=== PATIENT | male | born 1985 | race Caucasian/White ===

== ENCOUNTER 2017-02-25 10:23 | Inpatient (IN) ==
[2017-02-25] MEDS ORDERED: GI Cocktail 40 ML EACH PO ONE (10:34)
[2017-02-25] MEDS ORDERED: Ondansetron 4 MG/2 ML VIAL IVP ONE (10:34)
[2017-02-25] MEDS ORDERED: 0.9 % Sodium Chloride 1,000 ML IVC ONE ×2 (10:34→16:34)
--- NOTE | 2017-02-25 10:37 | Emergency Department Note ---
START Narrative - START START: 31-year-old male presents to the emergency department via EMS with complaint of abdominal pain, nausea, vomiting, dark stools and heartburn. I briefly saw this patient as we are currently approaching shift change. Generalized abdominal labs were ordered, antibiotics and a trial of a GI cocktail. Patient in no acute distress. Borderline febrile at 99.9. Patient denies any chest pain, shortness of breath, dizziness or lightheadedness.
[2017-02-25 10:48] LABS: Bilirubin,Urine Negative (Negative); Blood,Urine Moderate (Negative); Clarity,Urine Clear (Clear); Color,Urine Yellow (Yellow); Glucose,Urine (UA) >=1000 mg/dL (Normal); Ketones,Urine 40 mg/dL (Negative); Leukocyte Esterase,Urine Negative (Negative); Nitrite,Urine Negative (Negative); PH,Urine 6.5 pH Units (5.0-8.0); Protein,Urine >=300 mg/dL (Neg-Trace); Specific Gravity,Urine > 1.030 (1.010-1.025); Urobilinogen,Urine Normal (Normal)
[2017-02-25 10:50] LABS: Bacteria,Urine None Seen per hpf (None-Few); Hyaline Casts,Urine None Seen per lpf (None-Few); RBC,Urine 15-30 per hpf (0-3); Squamous Epithelial Cell,Urine Moderate per lpf (None-Few); WBC,Urine 0-3 per hpf (0-3)
[2017-02-25 10:54] LABS: Amphetamine Screen,Urine Negative ng/mL (Cutoff=1000); Barbiturate Screen,Urine Negative ng/mL (Cutoff=200); Benzodiazepines Screen,Urine Negative ng/mL (Cutoff=200); Cannabinoid Screen,Urine Negative ng/mL (Cutoff = 50); Cocaine Screen,Urine Negative ng/mL (Cutoff= 300); Opiate Screen,Urine Negative ng/mL (Cutoff=300); Phencyclidine Screen,Urine Negative ng/mL (Cutoff=25)
[2017-02-25 10:54] LABS: Basophils % 0.3 %; Eosinophils # 0.2 K/mcL (0.0-0.6); Hematocrit 44.5 % (37.5-50.1); Immature Granulocytes % 0.7 % (0-4); Lymphocytes # 1.8 K/mcL (0.6-4.6); Lymphocytes % 11.8 %; Mean Corpuscular HGB Conc 33.7 g/dL (31.6-35.5); Mean Corpuscular Hemoglobin 26.2 pg (28.0-33.3); Mean Corpuscular Volume 77.7 fL (83.0-100.0); Monocytes # 0.9 K/mcL (0.0-1.3); Monocytes % 5.7 %; Neutrophils # 12.1 K/mcL (1.6-8.9); Platelet Count 214 K/mcL (140-400); Red Blood Count 5.73 M/mcL (4.19-5.50); Red Cell Distribution Width 14.6 % (11.5-14.5); Segmented Neutrophils % 80.5 %
[2017-02-25 11:00] LABS: INR 1.2; Prothrombin Time 12.7 Seconds (9.4-12.1)
[2017-02-25 11:02] LABS: Activated Partial Thrombo Time 31.3 Seconds (26.0-36.0)
--- NOTE | 2017-02-25 11:44 | Emergency Department Note ---
Disposition Clinical Impression: UPJ (ureteropelvic junction) obstruction Pancreatitis Qualifiers: Chronicity: acute Pancreatitis type: unspecified pancreatitis type Acute pancreatitis complication: unspecified Qualified Code(s): K85.90 - Acute pancreatitis without necrosis or infection, unspecified Disposition: Admitted As Inpatient Condition: Serious Time of Disposition: 15:46 Abdominal Pain HPI - General Chief Complaint: ED Abdominal Pain Stated Complaint: ABD pain Time Seen by Provider: 02/25/17 10:34 Source: patient, EMS Mode of arrival: ambulatory Limitations: no limitations Nursing Notes Reviewed: Yes Vital Signs Reviewed: Yes - History of Present Illness HPI Narrative: 31-year-old male with 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 The patient states he had some associated nausea and vomiting up to 4 episodes. The patient states he has had 2 hard bowel movements every day which is unusual for him as he normally has 3-4 bowel movements. The patient states it is dark in color, nonbloody. The patient states that over the past 24 hours his pain is beginning to radiate to the left flank. The patient states he is worried about his kidney at this time. The patient denies any fevers but does admit to chills. The patient definitely has a decreased by mouth intake per his significant other in the room. The patient denies any dysuria. The patient does have a history of nephrolithiasis 3 or 4. Patient denies any other complaints at this time do include dyspnea, chest pain, unilateral weakness. Pt Subjective Complaint: abdominal pain Pain Severity: moderate Pain Scale: 8 Quality: cramping Radiation: L flank Improves with: nothing Worsens with: nothing Context: history of similar episodes Associated symptoms: Reports: nausea, vomiting, constipation. Denies: diarrhea , dysuria, hematochezia, melena, hematuria Treatments prior to arrival: none - Related Data Home Medications Medication Instructions Recorded Confirmed BuPROPion XL (24 HR) [Wellbutrin 150 mg PO BID 11/24/15 02/25/17 Xl] Enalapril Maleate [Vasotec] 20 mg PO DAILY 11/24/15 02/25/17 metFORMIN [Glucophage] 1,000 mg PO BIDWM 11/24/15 02/25/17 Buspirone HCl [Buspar] 10 mg PO TID 02/25/17 02/25/17 Dicyclomine [Bentyl] 10 mg PO QID 02/25/17 02/25/17 Escitalopram [Lexapro] 20 mg PO DAILY 02/25/17 02/25/17 Gemfibrozil [Lopid] 600 mg PO BIDWM 02/25/17 02/25/17 Glimepiride [Amaryl] 2 mg PO DAILY 02/25/17 02/25/17 Allergies Allergy/AdvReac Type Severity Reaction Status Date / Time prednisolone Allergy Rash, Verified 07/07/16 12:00 Shortness of Breath All systems ED: reviewed and negative except as stated. Constitutional: Denies: fever, chills, weakness, weight change Cardiovascular: Denies: chest pain, palpitations, dyspnea on exertion, edema, syncope Respiratory: Denies: cough, dyspnea, wheezes, hemoptysis, stridor Gastrointestinal: Reports: abdominal pain, nausea, vomiting, constipation. Denies: diarrhea, hematemesis, melena, hematochezia Genitourinary: Denies: urgency, dysuria, frequency, hematuria Musculoskeletal: Denies: back pain, neck pain, arthralgia, myalgia Integumentary: Denies: rash, abrasion, lesions Neurological: Denies: headache, weakness, numbness, paresthesias, confusion, abnormal gait, vertigo Abdominal Pain PMH - Past Medical History Medical history: Reports: diabetes, hyperlipidemia, hypertension, other (Single functional kidney on the left) Male Surgical History: Reports: Tonsillectomy, other Psychiatric history: Reports: anxiety - Social History Smoking status: Never smoker Alcohol use: Reports: none Drug use: Reports: none Physical Exam - General Limitations: no limitations General appearance: alert - Head Head exam: atraumatic, normocephalic, normal inspection - Chest Chest inspection: Present: normal inspection, symmetric chest wall rise - Respiratory Respiratory exam: Present: normal lung sounds bilaterally - Cardiovascular Cardiovascular exam: Present: regular rate, normal rhythm, normal heart sounds - Abdominal Exam Abdominal exam: Present: soft, tenderness, normal bowel sounds. Absent: distention, guarding, rebound, rigidity, Rovsing's sign, tenderness at McBurney' s Point, pulsatile mass Abdominal tenderness: Present: suprapubic, moderate - Extremities Exam Extremities exam: Present: normal inspection - Back Exam Back exam: Present: normal inspection, full ROM. Absent: tenderness - Neurological Exam Neurological exam: Present: alert, oriented X3 Course - Consultations Consultation #1: Spoke with Urology. Will see the patient. Vital Signs Temperature 99.9 F H 02/25/17 10:25 Pulse Rate 124 02/25/17 10:25 Respiratory Rate 18 02/25/17 10:25 Blood Pressure 143/84 02/25/17 10:25 O2 Sat by Pulse Oximetry 100 02/25/17 10:25 Temperature 98.9 F 02/25/17 16:40 Pulse Rate 124 02/25/17 16:27 Respiratory Rate 16 02/25/17 16:36 Blood Pressure 124/63 02/25/17 16:36 O2 Sat by Pulse Oximetry 93 02/25/17 16:27 Oxygen Delivery Oxygen Delivery Room Air Abdominal Pain - Lab Data Result diagrams: 02/25/17 10:45 02/25/17 11:58 Lab Results 02/25/17 02/25/17 02/25/17 Range/Units 10:39 10:39 10:45 WBC 15.0 H (4.3-11.1) K/mcL RBC 5.73 H (4.19-5.50) M/mcL Hgb 15.0 (12.9-16.9) g/dL Hct 44.5 (37.5-50.1) % MCV 77.7 L (83.0-100.0) fL MCH 26.2 L (28.0-33.3) pg MCHC 33.7 (31.6-35.5) g/dL RDW 14.6 H (11.5-14.5) % Plt Count 214 (140-400) K/mcL MPV 11.0 (9.4-12.4) fL Immature Gran % 0.7 (0-4) % Seg Neutrophils % 80.5 % Lymphocytes % 11.8 % Monocytes % 5.7 % Eosinophils % 1.0 % Basophils % 0.3 % Neutrophils # 12.1 H (1.6-8.9) K/mcL Lymphocytes # 1.8 (0.6-4.6) K/mcL Monocytes # 0.9 (0.0-1.3) K/mcL Eosinophils # 0.2 (0.0-0.6) K/mcL Basophils # 0.0 (0.0-0.2) K/mcL PT (9.4-12.1) Seconds INR APTT (26.0-36.0) Seconds Sodium (136-145) mEq/L Potassium (3.5-4.5) mEq/L Chloride (98-109) mEq/L Carbon Dioxide (19-29) mEq/L BUN (8-26) mg/dL Creatinine (0.72-1.25) mg/dL Est GFR ( Amer) (> 60) Est GFR (Non-Af Amer) (> 60) BUN/Creatinine Ratio (6-26) Glucose (70-99) mg/dL Calculated Osmolality (280-300) Lactic Acid (0.5-2.2) mmol/L Calcium (8.6-10.8) mg/dL Total Bilirubin (0.2-1.2) mg/dL Direct Bilirubin (0.0-0.5) mg/dL Indirect Bilirubin (0.0-1.2) mg/dL AST (5-34) Units/L ALT (0-55) Units/L Alkaline Phosphatase (38-126) Units/L Serum Total Protein (6.0-8.3) g/dL Albumin (3.5-5.0) g/dL Globulin (2.4-3.5) g/dL Albumin/Globulin Ratio (1.1-2.2) Amylase (25-125) Units/L Lipase (8-78) Units/L Urine Color Yellow (Yellow) Urine Clarity Clear (Clear) Urine pH 6.5 (5.0-8.0) pH Units Ur Specific [place] > 1.030 H (1.010-1.025) Urine Protein >=300 H (Neg-Trace) mg/dL Urine Glucose (UA) >=1000 H (Normal) mg/dL Urine Ketones 40 H (Negative) mg/dL Urine Blood Moderate H (Negative) Urine Nitrite Negative (Negative) Urine Bilirubin Negative (Negative) Urine Urobilinogen Normal (Normal) mg/dL Ur Leukocyte Esterase Negative (Negative) Urine Microscopic RBC 15-30 H (0-3) per hpf Urine Microscopic WBC 0-3 (0-3) per hpf Ur Squamous Epith Cells Moderate H (None-Few) per lpf Urine Bacteria None Seen (None-Few) per hpf Hyaline Casts None Seen (None-Few) per lpf Ur Culture Indicated? NO (NO) Urine Opiates Screen Negative (Nhmwjh=106) ng/mL Ur Barbiturates Screen Negative (Donmpl=593) ng/mL Ur Phencyclidine Scrn Negative (Cutoff=25) ng/mL Ur Amphetamines Screen Negative (Edlhvc=2710) ng/mL U Benzodiazepines Scrn Negative (Fgpwhk=371) ng/mL Urine Cocaine Screen Negative (Cutoff= 300) ng/mL U Marijuana (THC) Screen Negative (Cutoff = 50) ng/mL Specimen Rejected 02/25/17 02/25/17 02/25/17 Range/Units 10:45 10:45 11:16 WBC (4.3-11.1) K/mcL RBC (4.19-5.50) M/mcL Hgb (12.9-16.9) g/dL Hct (37.5-50.1) % MCV (83.0-100.0) fL MCH (28.0-33.3) pg MCHC (31.6-35.5) g/dL RDW (11.5-14.5) % Plt Count (140-400) K/mcL MPV (9.4-12.4) fL Immature Gran % (0-4) % Seg Neutrophils % % Lymphocytes % % Monocytes % % Eosinophils % % Basophils % % Neutrophils # (1.6-8.9) K/mcL Lymphocytes # (0.6-4.6) K/mcL Monocytes # (0.0-1.3) K/mcL Eosinophils # (0.0-0.6) K/mcL Basophils # (0.0-0.2) K/mcL PT 12.7 H (9.4-12.1) Seconds INR 1.2 APTT 31.3 (26.0-36.0) Seconds Sodium (136-145) mEq/L Potassium (3.5-4.5) mEq/L Chloride (98-109) mEq/L Carbon Dioxide (19-29) mEq/L BUN (8-26) mg/dL Creatinine (0.72-1.25) mg/dL Est GFR ( Amer) (> 60) Est GFR (Non-Af Amer) (> 60) BUN/Creatinine Ratio (6-26) Glucose (70-99) mg/dL Calculated Osmolality (280-300) Lactic Acid 1.4 (0.5-2.2) mmol/L Calcium (8.6-10.8) mg/dL Total Bilirubin (0.2-1.2) mg/dL Direct Bilirubin (0.0-0.5) mg/dL Indirect Bilirubin (0.0-1.2) mg/dL AST (5-34) Units/L ALT (0-55) Units/L Alkaline Phosphatase (38-126) Units/L Serum Total Protein (6.0-8.3) g/dL Albumin (3.5-5.0) g/dL Globulin (2.4-3.5) g/dL Albumin/Globulin Ratio (1.1-2.2) Amylase (25-125) Units/L Lipase (8-78) Units/L Urine Color (Yellow) Urine Clarity (Clear) Urine pH (5.0-8.0) pH Units Ur Specific [place] (1.010-1.025) Urine Protein (Neg-Trace) mg/dL Urine Glucose (UA) (Normal) mg/dL Urine Ketones (Negative) mg/dL Urine Blood (Negative) Urine Nitrite (Negative) Urine Bilirubin (Negative) Urine Urobilinogen (Normal) mg/dL Ur Leukocyte Esterase (Negative) Urine Microscopic RBC (0-3) per hpf Urine Microscopic WBC (0-3) per hpf Ur Squamous Epith Cells (None-Few) per lpf Urine Bacteria (None-Few) per hpf Hyaline Casts (None-Few) per lpf Ur Culture Indicated? (NO) Urine Opiates Screen (Kwncgi=510) ng/mL Ur Barbiturates Screen (Qfmmah=828) ng/mL Ur Phencyclidine Scrn (Cutoff=25) ng/mL Ur Amphetamines Screen (Uhlxjz=4338) ng/mL U Benzodiazepines Scrn (Uzyovm=783) ng/mL Urine Cocaine Screen (Cutoff= 300) ng/mL U Marijuana (THC) Screen (Cutoff = 50) ng/mL Specimen Rejected Hemolyzed 02/25/17 02/25/17 Range/Units 11:58 12:37 WBC (4.3-11.1) K/mcL RBC (4.19-5.50) M/mcL Hgb (12.9-16.9) g/dL Hct (37.5-50.1) % MCV (83.0-100.0) fL MCH (28.0-33.3) pg MCHC (31.6-35.5) g/dL RDW (11.5-14.5) % Plt Count (140-400) K/mcL MPV (9.4-12.4) fL Immature Gran % (0-4) % Seg Neutrophils % % Lymphocytes % % Monocytes % % Eosinophils % % Basophils % % Neutrophils # (1.6-8.9) K/mcL Lymphocytes # (0.6-4.6) K/mcL Monocytes # (0.0-1.3) K/mcL Eosinophils # (0.0-0.6) K/mcL Basophils # (0.0-0.2) K/mcL PT (9.4-12.1) Seconds INR APTT (26.0-36.0) Seconds Sodium 129 L (136-145) mEq/L Potassium 4.8 H (3.5-4.5) mEq/L Chloride 97 L (98-109) mEq/L Carbon Dioxide 23 (19-29) mEq/L BUN 7 L (8-26) mg/dL Creatinine 1.07 (0.72-1.25) mg/dL Est GFR ( Amer) > 60 (> 60) Est GFR (Non-Af Amer) > 60 (> 60) BUN/Creatinine Ratio 7 (6-26) Glucose 376 H (70-99) mg/dL Calculated Osmolality 281 (280-300) Lactic Acid (0.5-2.2) mmol/L Calcium 9.0 (8.6-10.8) mg/dL Total Bilirubin 0.7 (0.2-1.2) mg/dL Direct Bilirubin 0.2 (0.0-0.5) mg/dL Indirect Bilirubin 0.5 (0.0-1.2) mg/dL AST 31 (5-34) Units/L ALT 15 (0-55) Units/L Alkaline Phosphatase 61 (38-126) Units/L Serum Total Protein 8.5 H (6.0-8.3) g/dL Albumin 2.9 L (3.5-5.0) g/dL Globulin 5.6 H (2.4-3.5) g/dL Albumin/Globulin Ratio 0.5 L (1.1-2.2) Amylase 77 (25-125) Units/L Lipase 193 H (8-78) Units/L Urine Color (Yellow) Urine Clarity (Clear) Urine pH (5.0-8.0) pH Units Ur Specific [place] (1.010-1.025) Urine Protein (Neg-Trace) mg/dL Urine Glucose (UA) (Normal) mg/dL Urine Ketones (Negative) mg/dL Urine Blood (Negative) Urine Nitrite (Negative) Urine Bilirubin (Negative) Urine Urobilinogen (Normal) mg/dL Ur Leukocyte Esterase (Negative) Urine Microscopic RBC (0-3) per hpf Urine Microscopic WBC (0-3) per hpf Ur Squamous Epith Cells (None-Few) per lpf Urine Bacteria (None-Few) per hpf Hyaline Casts (None-Few) per lpf Ur Culture Indicated? (NO) Urine Opiates Screen (Rcfclj=521) ng/mL Ur Barbiturates Screen (Oxtlsz=404) ng/mL Ur Phencyclidine Scrn (Cutoff=25) ng/mL Ur Amphetamines Screen ([place]=3307) ng/mL U Benzodiazepines Scrn (Znzfed=578) ng/mL Urine Cocaine Screen (Cutoff= 300) ng/mL U Marijuana (THC) Screen (Cutoff = 50) ng/mL Specimen Rejected Hemolyzed Critical Care Time Critical Care Time: Yes Total Critical Care Time: 35 Attestation: Critical care time managing tachycardia and pancreatitis 35 minutes. Attestation Statement - Attestation Attestation: Patient was seen with resident physician. I reviewed the history, physical, assessment and plan, and agree with the findings. I also personally evaluated this patient and had [id number] time with this patient. 31-year-old male presents to the emergency Department chief complaint of abdominal pain and vomiting. Patient's had abdominal pain worsening over the last couple of days. He said it started as lower abdominal pain bilaterally but now has migrated more to the left flank and left lower quadrant. He says that he has one kidney on that area and he has had a history of kidney stones in the past. He denies fevers that he is aware of but he was slightly febrile here. He also has had some blood in his urine but no dysuria. He has had intermittent vomiting and has been able to keep down some food. On examination vital signs mild fever, slight tachycardia. Remainder unremarkable. Examination ENT is unremarkable. Heart normal except for tachycardia. Lungs clear. Abdomen obese diffusely tender on the left side with no guarding or rigidity. Neurologically intact. Extremities unremarkable. ED course urinalysis showed blood in the urine. CT scan of the abdomen was ordered. Other lab testing were also ordered he had elevated white cell count. Patient was feeling better with Zofran and a GI cocktail. He did note that he had some abdominal pain that came up into his mid epigastric area but is likely related to the vomiting. Hemodynamically the patient remained stable and improved with IV fluids and medication. Initial CT scan with no IV contrast revealed possible abscess. Repeat with oral contrast revealed no extravasation of the contrast in the abdominal wall or abscess but inflammation likely related to pancreatitis which as consistent with lab testing. Surgery had been notified and they did evaluate the patient Bautista the emergency department. Patient's pain was controlled and the hospitalist was notified that he would need to be admitted to the hospital for further evaluation treatment. He was started on IV antibiotics while here. Critical care time 35 minutes. I agree with the resident physician assessment plan.
[2017-02-25] MEDS ORDERED: Aminoglycoside Consult 1 EACH MC ONE (12:00)
[2017-02-25 12:59] LABS: Alanine Aminotransferase 15 Units/L (0-55); Albumin 2.9 g/dL (3.5-5.0); Albumin/Globulin Ratio 0.5 (1.1-2.2); Alkaline Phosphatase 61 Units/L (38-126); Amylase 77 Units/L (25-125); Aspartate Amino Transferase 31 Units/L (5-34); BUN/Creatinine Ratio 7 (6-26); Bilirubin,Direct 0.2 mg/dL (0.0-0.5); Bilirubin,Indirect 0.5 mg/dL (0.0-1.2); Bilirubin,Total 0.7 mg/dL (0.2-1.2); Blood Urea Nitrogen 7 mg/dL (8-26); Carbon Dioxide 23 mEq/L (19-29); Chloride 97 mEq/L (98-109); Globulin 5.6 g/dL (2.4-3.5); Glucose 376 mg/dL (70-99); Lipase 193 Units/L (8-78); Osmolality,Calculated 281 (280-300); Sodium 129 mEq/L (136-145); Total Protein 8.5 g/dL (6.0-8.3); eGFR For African Americans > 60 (> 60); eGFR For Non-African Americans > 60 (> 60)
[2017-02-25 13:03] LABS: Potassium 4.8 mEq/L (3.5-4.5)
[2017-02-25] MEDS ORDERED: *HR* HYDROmorphone (PF) 1 MG/ML SYRINGE IVP ONE ×2 (13:33→16:04)
[2017-02-25] MEDS ORDERED: Piperacillin/Tazobactam 3.375 GM in D5% in Water (Mini-Bag+) 100 ML IVPB ONE (15:11)
[2017-02-25] MEDS ORDERED: Naloxone 0.4 MG/ML INJ IVP PRN (16:21)
[2017-02-25] MEDS ORDERED: Ondansetron 4 MG/2 ML VIAL IVP PRN (16:21)
[2017-02-25] MEDS ORDERED: *HR* Morphine 2 MG/ML SYRINGE IVP PRN (16:21)
[2017-02-25] MEDS ORDERED: Acetaminophen 325 MG TABLET PO PRN ×2 (16:21→22:17)
[2017-02-25] MEDS ORDERED: *HR* HYDROcodone/Acet 5/325 mg TABLET PO PRN (16:21)
--- NOTE | 2017-02-25 16:35 | General Surgery Consult Note ---
Date of Encounter: 02/25/17 Time of Encounter: 16:00 Assessment and Plan (1) Jejunal inflammation Current Visit: Yes Status: Acute serial abdominal exams recommend npo for now with ivf hydration, ok ice chips and popcicles trend labs jejunal inflammation may be secondary to pancreatitis although most of his pain is left flank (2) Leukocytosis Current Visit: Yes Status: Acute start zosyn, trend labs Qualifiers: Leukocytosis type: unspecified Qualified Code(s): D72.829 - Elevated white blood cell count, unspecified (3) Diabetes Current Visit: Yes Status: Acute mbs checks, ssi, management per hospitalist Qualifiers: Diabetes mellitus type: type 2 Diabetes mellitus complication detail: with chronic kidney disease Diabetes mellitus intermediate manager insulin use: without intermediate manager use Chronic kidney disease stage: unspecified stage Qualified Code(s): E11.22 - Type 2 diabetes mellitus with diabetic chronic kidney disease (4) HTN (hypertension) Current Visit: Yes Status: Acute ok to continue home meds Qualifiers: Hypertension type: unspecified secondary hypertension Qualified Code(s): I15.9 - Secondary hypertension, unspecified; I15 - Secondary hypertension (5) Pancreatitis Current Visit: Yes Status: Acute ivf hydration prn pain control gi/dvt prophylaxis trend labs serial abdominal exams no surgical intervention at this time Qualifiers: Chronicity: acute Pancreatitis type: unspecified pancreatitis type Acute pancreatitis complication: unspecified Qualified Code(s): K85.90 - Acute pancreatitis without necrosis or infection, unspecified History of Present Illness Consult date: 02/25/17 Reason for consult: abdominal pain History of present illness: Patient is a 31 yo male with complaints of mid abdomen generalized sharp pain that began Saturday (2-3 days ago). He also had severe GERD symptoms after drinking liquids and frequently has problems with GERD. He complained of sob and chest tightness when he had his gerd symptoms. For the last 12 hours the pain has moved to the left flank/side, no radiation. He complains of a temperature of 99.9 here in ED. He has been having night sweats. Had nausea and vomiting twice, no hematemesis. He denies diarrhea. He has no recent sick contacts. ED called and patient has CDK and had CT scan with no iv or oral contrast which showed possible jejuna perforation/abscess/inflammation/ pancreatitis. CT was repeated with po contrast and shows jejunal inflammation along with pancreatitis, no extraluminal contrast or free air. 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) Psychiatric history: anxiety - Past Surgical History Surgical History: other (UPJ obstruction surgery November 2016, left hand surgery secondary to trauma, B/L myringotomies) - Social History Smoking Status: Never smoker Smokeless Tobacco Status: No Alcohol use: none Drug use: none - Family History Grandmother History Unknown: Yes Medications and Allergies BuPROPion XL (24 HR) [Wellbutrin Xl] 150 mg PO BID 11/24/15 [History] Enalapril Maleate [Vasotec] 20 mg PO DAILY 11/24/15 [History] metFORMIN [Glucophage] 1,000 mg PO BIDWM 11/24/15 [History] Buspirone HCl [Buspar] 10 mg PO TID 02/25/17 [History] Dicyclomine [Bentyl] 10 mg PO QID 02/25/17 [History] Escitalopram [Lexapro] 20 mg PO DAILY 02/25/17 [History] Gemfibrozil [Lopid] 600 mg PO BIDWM 02/25/17 [History] Glimepiride [Amaryl] 2 mg PO DAILY 02/25/17 [History] Allergies prednisolone Allergy (Verified 07/07/16 12:00) Rash, Shortness of Breath Review of Systems All systems PM: reviewed and no additional remarkable complaints except as stated All systems PM: A 10-system review of systems was performed and is negative for pertinent findings except as documented above in the HPI. General Surgery Exam Initial Vital Signs Temp Pulse Resp BP Pulse Ox 99.9 F H 124 18 143/84 100 02/25/17 10:25 02/25/17 10:25 02/25/17 10:25 02/25/17 10:25 02/25/17 10:25 - General physical appearance well developed, well nourished, no distress, no pain, obese - Eyes PERRL, normal ocular movement - ENT normal mucosa, normocephalic - Neck trachea midline - Respiratory normal expansion, normal respiratory effort, clear to auscultation - Cardiovascular Cardiovascular exam: Present: RRR, no murmurs/rubs/gallops - Abdomen Abdomen general surgery: Present: bowel sounds present, soft, tender (left abdomen/flank, no rebound or guarding) - Integumentary Integumentary general surgery: Present: warm and dry, no abnormal pigmentation - Neurologic Present: CN 2-12 grossly intact, normal coordination - Musculoskeletal Present: normal gait, normal posture - Psychiatric Psychiatric general surgery: Present: A&Ox3, speech is normal Exam Initial Vital Signs Temp Pulse Resp BP Pulse Ox 99.9 F H 124 18 143/84 100 02/25/17 10:25 02/25/17 10:25 02/25/17 10:25 02/25/17 10:25 02/25/17 10:25 Results - Labs 02/25/17 10:45 02/25/17 11:58 Short CBC 02/25/17 Range/Units 10:45 WBC 15.0 H (4.3-11.1) K/mcL Hgb 15.0 (12.9-16.9) g/dL Hct 44.5 (37.5-50.1) % Plt Count 214 (140-400) K/mcL Neutrophils # 12.1 H (1.6-8.9) K/mcL BMP 02/25/17 Range/Units 11:58 Sodium 129 L (136-145) mEq/L Potassium 4.8 H (3.5-4.5) mEq/L Chloride 97 L (98-109) mEq/L Carbon Dioxide 23 (19-29) mEq/L BUN 7 L (8-26) mg/dL Creatinine 1.07 (0.72-1.25) mg/dL Glucose 376 H (70-99) mg/dL Calcium 9.0 (8.6-10.8) mg/dL Liver Function 02/25/17 Range/Units 11:58 Total Bilirubin 0.7 (0.2-1.2) mg/dL Direct Bilirubin 0.2 (0.0-0.5) mg/dL AST 31 (5-34) Units/L ALT 15 (0-55) Units/L Alkaline Phosphatase 61 (38-126) Units/L Albumin 2.9 L (3.5-5.0) g/dL Urine 02/25/17 Range/Units 10:39 Urine Color Yellow (Yellow) Urine Clarity Clear (Clear) Urine pH 6.5 (5.0-8.0) pH Units Ur Specific [place] > 1.030 H (1.010-1.025) Urine Protein >=300 H (Neg-Trace) mg/dL Urine Glucose (UA) >=1000 H (Normal) mg/dL - Imaging CT scan - abdomen: report reviewed, image reviewed CT scan - pelvis: report reviewed, image reviewed Consult Discharge Plan - Plan Referrals: Marta Augustine [Primary Care Provider] -
[2017-02-25] MEDS ORDERED: *HR* Dextrose 50 % in Water (Syg) 50 ML SYRINGE IVP PRN (16:40)
[2017-02-25] MEDS ORDERED: D5% in Water 1,000 ML IVC PRN (16:40)
[2017-02-25] MEDS ORDERED: Dextrose Gel 15 GM PO PRN ×2 (16:40)
--- NOTE | 2017-02-25 16:45 | Event Note ---
Date of Encounter: 02/25/17 Time of Encounter: 16:41 Patient seen and examined with nurse practitioner. Patient with type II diabetes mellitus, atrophic nonfunctioning right kidney presents emergency room today with abdominal pain and fever. CT scan with contrast shows picture of pancreatitis with surrounding bowel inflammation versus bowel perforation. His exam is benign. He is not peritonitic. Abdomen is nonsurgical. Keep NPO, hydrate, empiric coverage with vancomycin and Zosyn. Appreciate surgery recommendations. Patient has atrophic nonfunctioning right kidney. 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 Kidney functions at baseline. Consult urology. He is full code.
[2017-02-25] MEDS ORDERED: Vancomycin 2,000 MG in D5% in Water 250 ML IVPB SCH (17:00)
--- NOTE | 2017-02-25 17:04 | Internal Med History&Physical ---
Date of Encounter: 02/25/17 Time of Encounter: 16:00 Assessment and Plan (1) Pancreatitis Current visit: Yes Status: Acute Assess: Mr. Dominguez presents with chief complaint of abdominal pain, nausea, vomiting, heartburn, and dark stools which he reports began on Saturday morning and has become progressively worse. He states he had similar symptoms a year ago that were not as bad as these he has now. Patient reports he had a fever of 99.9, chills, SOB, and aches/pains which felt similar to the flu for the past two days. Patient denies diarrhea, but states his last two bowel movements have been formed but black. Mr. Dominguez states that the pain is now radiating to his left upper quadrant. CT scan with contrast shows pancreatitis with reactive colitis versus the less likely possibility of jejunal perforation. Plan: NPO now IV vancomycin with pharmacy dosing ordered IV Zosyn ordered IV Fluid bolus 1,000 mL ordered IV fluids 150 mL/HR ordered Surgical consult ordered Continuous telemetry ordered Monitor patient and vital signs Qualifiers: Chronicity: acute Pancreatitis type: unspecified pancreatitis type Acute pancreatitis complication: unspecified Qualified Code(s): K85.90 - Acute pancreatitis without necrosis or infection, unspecified (2) UPJ (ureteropelvic junction) obstruction Current visit: Yes Status: Acute Assess: Patient presents with left UPJ obstruction and hydronephrosis without left renal atrophy and right renal cortical thinning and marked right hydronephrosis compatible with history of chronic UPJ obstruction. Patient was last seen by Drs. Coronel and Richard one year ago for similar symptoms. Plan: Urology consult ordered and placed Monitor I&O (3) Jejunal inflammation Current visit: Yes Status: Acute Assess: Patient presents with acute inflammatory change of the abdominal left upper quadrant with lack of extraluminal contrast collection and lack of free air suggests pancreatitis with reactive colitis, less likely jejunal perforation. Plan: Surgical consult ordered NPO diet now IV vancomycin with pharmacy dosing ordered IV Zosyn ordered IV Fluid bolus 1,000 mL ordered IV fluids 150 mL/HR ordered Monitor I&O Fecal occult guaic ordered (4) Leukocytosis Current visit: Yes Status: Acute Assess: Patient presents with acute leukocytosis related to WBCs 15.0 on initial lab draw. Plan: IV vancomycin with pharmacy dosing ordered IV Zosyn ordered Follow-up CBC and labs ordered Continuous telemetry ordered Monitor patient and vital signs Qualifiers: Leukocytosis type: unspecified Qualified Code(s): D72.829 - Elevated white blood cell count, unspecified (5) Diabetes Current visit: Yes Status: Acute Assess: Patient presents with history of chronic diabetes which is currently controlled with oral hyperglycemic medications. Plan: Glucose monitoring Q$ while awake Low-dose insulin correction dosing ordered Hypoglycemia protocol ordered Qualifiers: Diabetes mellitus type: type 2 Diabetes mellitus complication status: with kidney complications Diabetes mellitus complication detail: with chronic kidney disease Diabetes mellitus chcf insulin use: without chcf use Chronic kidney disease stage: unspecified stage Qualified Code(s): E11.22 - Type 2 diabetes mellitus with diabetic chronic kidney disease (6) HTN (hypertension) Current visit: Yes Status: Acute Assess: Patient presents with history of chronic hypertension. Plan: Continue Lopid Continue Vasotec Monitor patient and vital signs Qualifiers: Hypertension type: unspecified secondary hypertension Qualified Code(s): I15.9 - Secondary hypertension, unspecified; I15 - Secondary hypertension (7) DVT prophylaxis Current visit: Yes Status: Acute Assess: Patient placed on DVT prophylaxis per inpatient protocol and current infection status. Pharmacologic prophylaxis is contraindicated due to patient's report of stools with melena. Plan: SCDs ordered bilaterally for lower legs Ambulate as tolerated Internal Medicine - H&P: HPI Chief complaint: Abdominal pain/N/V Admitted From: Emergency Dept Plans for Post Hospital Care: Home History of present illness: Mr. Dominguez is a 31 year old male presents from the ED with chief complaint of abdominal pain, nausea, vomiting, heartburn, and dark stools which he reports began on Saturday morning and has become progressively worse. He states he had similar symptoms a year ago that were not as bad as these he has now. Patient reports he had a fever of 99.9, chills, SOB, and aches/pains which felt similar to the flu for the past two days. Patient denies diarrhea, but states his last two bowel movements have been formed but black. Mr. Dominguez states that the pain is now radiating to his left upper quadrant. Patient has a history of nephrolithiasis in left kidney. Patient reports his right kidney is non- functional and atrophied since he was a child. Patient denies chest pain, dizziness, lightheadedness, weakness, dysuria, hematurai, pre-syncope, or syncopal episodes. Mr. Dominguez has a history of diabetes, GERD, hyperlipidiemia , UPJ obstruction of left kidney, gout, anxiety, depression, and PTSD. Patient is to be admitted as inpatient with consults to surgery and urology placed. Patient reports Drs. Coronel & Richard saw him a year ago for UPJ obstruction. CT scan with contrast shows pancreatitis with reactive colitis versus the less likely possibility of jejunal perforation. Patient is to be placed NPO now with IV vancomycin (pharmacy dosed) and Zosyn for infection coverage. Patient to also be placed on continuous telemetry, low-dose insulin correction dosing, and IV fluids. Patient to be monitored closely for pain and increasing signs of infection. Follow-up labs ordered. Past Med Surg Social Fam HX - Past Medical History Source: patient Medical history: diabetes, GERD, hyperlipidemia, hypertension, other (Single functional kidney on the left secondary to chronic UPJ obstruction, Gout) Psychiatric history: anxiety, depression - Past Surgical History Surgical History: other (UPJ obstruction surgery November 2016, left hand surgery secondary to trauma, B/L myringotomies) - Social History Smoking Status: Never smoker Smokeless Tobacco Status: No Alcohol use: none, rarely Drug use: none Occupational status: employed Current living situation: Home, With Family Activity Level: Independent ambulation Recent Out of Country Travel Within the Last 8 Weeks: No Exposure or Possible Exposure to Illness During Travel: No - Family History Grandmother History Unknown: Yes Mother Race: Family Member Ethnicity: Non- Living Status: Still Living Hx Family Cardiac Disorders: Yes (HTN) Hx Family Endocrine Disorder: Yes (DM, Thyroid) Father Race: Family Member Ethnicity: Non- Living Status: Still Living Hx Family Cardiac Disorders: Yes (Hyperlipidemia, HTN) Hx Family Endocrine Disorder: Yes (DM) Hx Family Musculoskeletal Disorders: Yes (Gout) Internal Medicine - H&P: Meds BuPROPion XL (24 HR) [Wellbutrin Xl] 150 mg PO BID 11/24/15 [History] Enalapril Maleate [Vasotec] 20 mg PO DAILY 11/24/15 [History] metFORMIN [Glucophage] 1,000 mg PO BIDWM 11/24/15 [History] Buspirone HCl [Buspar] 10 mg PO TID 02/25/17 [History] Dicyclomine [Bentyl] 10 mg PO QID 02/25/17 [History] Escitalopram [Lexapro] 20 mg PO DAILY 02/25/17 [History] Gemfibrozil [Lopid] 600 mg PO BIDWM 02/25/17 [History] Glimepiride [Amaryl] 2 mg PO DAILY 02/25/17 [History] Allergies prednisolone Allergy (Verified 07/07/16 12:00) Rash, Shortness of Breath All Systems PM: A 10-system review of systems was performed and is negative for pertinent findings except as documented above in the HPI. - Constitutional Constitutional: as per HPI, chills, fever(s) - EENT Eyes: no change in vision, no discharge, no pain, no photophobia Ears: no ear discharge, no ear pain, no tinnitus Nose, mouth and throat: no dysphagia, no nasal discharge, no neck pain, no sore throat - Breasts Breasts: as per HPI - Cardiovascular Cardiovascular ROS IM: as per HPI, dyspnea, no chest pain, no diaphoresis, no lightheadedness, no palpitations, no syncope - Respiratory Respiratory: as per HPI, dyspnea - Gastrointestinal Gastrointestinal: as per HPI, abdominal pain, change in stool character, heartburn, melena, nausea, vomiting - Genitourinary Genitourinary ROS male: as per HPI - Musculoskeletal Musculoskeletal ROS IM: no numbness, no tingling - Integumentary Integumentary IM: no rash, no unusual bruising - Neurological Neurological ROS: no confusion, no convulsions, no focal weakness, no numbness, no tingling, no tremor(s) - Psychiatric Psychiatric: as per HPI - Endocrine Endocrine IM: as per HPI - Hematologic/Lymphatic Hematologic/Lymphatic: no easy bruising - Allergic/Immunologic Allergic/Immunologic: as per HPI - Constitutional Vitals: Temp Pulse Resp BP Pulse Ox 98.9 F 124 16 124/63 93 02/25/17 16:40 02/25/17 16:27 02/25/17 16:36 02/25/17 16:36 02/25/17 16:27 General appearance: Present: cooperative, mild distress, A&O X 3, morbidly obese , pleasant, answers questions appropriately - Head Head exam: Present: atraumatic, normocephalic - Eye Eye exam: Present: PERRL, conjuntiva pink, sclera anicteric Pupils: Present: PERRL - ENT ENT exam: Present: normal exam, normal external ear exam - Neck Neck exam general surgery: Present: supple, trachea midline. Absent: lymphadenopathy - Respiratory Respiratory exam: Present: CTAB. Absent: accessory muscle use, rales, rhonchi, wheezes - Cardiovascular Cardiovascular exam: Present: RRR, +S1, +S2. Absent: diastolic murmur, gallop, rubs, systolic murmur - GI/Abdominal GI/Abdominal exam: Present: guarding, normal bowel sounds, soft, tenderness, no peritoneal signs - Rectal Rectal exam: Present: deferred - Additional comments: exam deferred. - Extremities Exam Extremities exam: Present: warm, radial pulses palpable and symetrical. Absent : calf tenderness, cyanotic, pedal edema - Back Exam Back exam: Present: normal inspection - Neurological Exam Neurological exam: Present: CN II-XII intact, oriented X3, no focal deficits. Absent: pronater drift, facial droop, speech deficit - Psychiatric Psychiatric exam: Present: normal affect, normal mood - Skin Skin exam: Present: dry, intact Internal Med - H&P Results - Labs CBC & Chem 7: 02/25/17 10:45 02/25/17 11:58 - Diagnostic Studies CT scan - abdomen Additional comments: Impressions Abdomen/Pelvis CT 02/25/17 11:20 IMPRESSION: 1. Acute inflammatory changes of the pancreatic bed and left upper quadrant. Primary consideration is proximal jejunal contained perforation with adjacent inflammation and forming abscess. Secondary colitis and pancreatitis. Other consideration includes primary pancreatitis with secondary duodenitis and colitis with pseudocyst formation. 2. Corresponding with the 2016 renal scintigraphy exam there is severe chronic right UPJ obstruction with no significant residual right renal function. Mild left UPJ obstruction without parenchymal atrophy. 3. Hepatic steatosis. Splenomegaly which has progressed since the prior abdominal ultrasound 2014. Critical results were called by Dr. Hay Orozco MD to Riki Grullon on 02/25/2017 at 12:15. D/ / 02/25/2017 12:24:58 Hay Orozco MD / prince Interpreting Provider: Hay Orozco MD Abdomen/Pelvis CT 02/25/17 13:40 IMPRESSION: Significant acute inflammatory change is again demonstrated of the abdominal left upper quadrant, for which differential considerations are as previously described, though the lack of extraluminal contrast collection and lack of free air favors pancreatitis with reactive colitis, less likely jejunal perforation. Fatty liver. 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 Left UPJ obstruction is noted without left renal atrophy. D/ / Moise Smith MD / Moise Smith MD Interpreting Provider: Moise Smith MD
[2017-02-25] MEDS: 0.9 % Sodium Chloride 1,000 ML IVC SCH (20:09)
[2017-02-25] MEDS: Vancomycin 2,000 MG in D5% in Water 500 ML IVPB SCH (20:23)
[2017-02-25] MEDS: BuPROPion SR (12 HR) 150 MG TABLET PO SCH (21:12)
[2017-02-25] MEDS: Insulin LISPRO 300 UNITS/3 ML VIAL SQ SCH (22:23)
[2017-02-26] MEDS: 0.9 % Sodium Chloride 1,000 ML IVC SCH ×3 (03:02→20:00)
[2017-02-26 04:56] LABS: Basophils % 0.2 %; Eosinophils # 0.2 K/mcL (0.0-0.6); Eosinophils % 1.7 %; Hematocrit 40.3 % (37.5-50.1); Immature Granulocytes % 0.7 % (0-4); Lymphocytes # 1.1 K/mcL (0.6-4.6); Lymphocytes % 11.8 %; Mean Corpuscular HGB Conc 32.5 g/dL (31.6-35.5); Mean Corpuscular Hemoglobin 25.9 pg (28.0-33.3); Mean Corpuscular Volume 79.8 fL (83.0-100.0); Mean Platelet Volume 10.9 fL (9.4-12.4); Monocytes # 0.6 K/mcL (0.0-1.3); Monocytes % 6.7 %; Neutrophils # 7.5 K/mcL (1.6-8.9); Platelet Count 138 K/mcL (140-400); Red Blood Count 5.05 M/mcL (4.19-5.50); Red Cell Distribution Width 14.7 % (11.5-14.5); Segmented Neutrophils % 78.9 %
[2017-02-26 04:57] LABS: Hemoglobin 13.1 g/dL (12.9-16.9)
[2017-02-26 05:01] LABS: INR 1.2; Prothrombin Time 13.5 Seconds (9.4-12.1)
[2017-02-26 05:04] LABS: Activated Partial Thrombo Time 29.1 Seconds (26.0-36.0)
[2017-02-26 05:14] LABS: Alanine Aminotransferase 10 Units/L (0-55); Albumin 2.4 g/dL (3.5-5.0); Albumin/Globulin Ratio 0.5 (1.1-2.2); Alkaline Phosphatase 58 Units/L (38-126); Aspartate Amino Transferase 10 Units/L (5-34); BUN/Creatinine Ratio 8 (6-26); Bilirubin,Total 0.6 mg/dL (0.2-1.2); Blood Urea Nitrogen 8 mg/dL (8-26); Calcium 8.5 mg/dL (8.6-10.8); Carbon Dioxide 22 mEq/L (19-29); Chloride 100 mEq/L (98-109); Cholesterol 364 mg/dL (< 200); Globulin 4.5 g/dL (2.4-3.5); Glucose 263 mg/dL (70-99); HDL Cholesterol 13 mg/dL (40-59); Magnesium 1.8 mg/dL (1.6-2.6); Osmolality,Calculated 281 (280-300); Potassium 4.1 mEq/L (3.5-4.5); Sodium 132 mEq/L (136-145); Total Protein 6.9 g/dL (6.0-8.3); Triglycerides 1307 mg/dL (< 150); eGFR For African Americans > 60 (> 60); eGFR For Non-African Americans > 60 (> 60)
[2017-02-26] MEDS: Vancomycin 2,000 MG in D5% in Water 500 ML IVPB SCH (06:29)
--- NOTE | 2017-02-26 06:39 | Urology - Consult Note ---
Date of Encounter: 02/26/17 Time of Encounter: 06:37 - Assessment and Plan (1) UPJ (ureteropelvic junction) obstruction Current Visit: Yes Status: Acute Assessment and plan: From a urologic standpoint I feel that the patient is asymptomatic. Based on previous imaging the right atrophic kidney appears unchanged. He continues to have left hydronephrosis which can be normal even after a pyeloplasty. No evidence of high-grade obstruction in his essentially left solitary kidney especially with normal renal function. No acute urologic intervention required. We'll likely consider MAG3 renal scan with Lasix as an outpatient to confirm no low or moderate grade obstruction. Inflammatory changes surrounding left kidney are noted but are likely related to pancreatitis. If patient does not improve clinically, consider CT urogram to evaluate with IV contrast. If patient is improving, no need to perform this study. Urology CN:ERICH Consult date: 02/26/17 Reason for consult Urology: Hydronephrosis History of present illness: Patient well-known to the urology service. Known right renal atrophy. History of left UPJ obstruction. One year status post robotic pyeloplasty. No follow-up since. Patient admitted for nausea, vomiting, left upper quadrant pain, dark colored stools. He reports no urinary symptoms such as dysuria or gross hematuria. No severe left flank pain. Past Med Surg Social Fam HX - Past Medical History Medical history: diabetes, GERD, hyperlipidemia, hypertension, other Psychiatric history: anxiety, depression - Past Surgical History Surgical History: other - Social History Smoking Status: Never smoker Smokeless Tobacco Status: No Alcohol use: none, rarely Drug use: none - Family History Grandmother History Unknown: Yes Mother Race: Family Member Ethnicity: Non- Living Status: Still Living Hx Family Cardiac Disorders: Yes (HTN) Hx Family Endocrine Disorder: Yes (DM, Thyroid) Father Race: Family Member Ethnicity: Non- Living Status: Still Living Hx Family Cardiac Disorders: Yes (Hyperlipidemia, HTN) Hx Family Genitourinary Disorders: Yes (Gout) Hx Family Endocrine Disorder: Yes (DM) Hx Family Musculoskeletal Disorders: Yes (Gout) Medications and Allergies BuPROPion XL (24 HR) [Wellbutrin Xl] 150 mg PO BID 11/24/15 [History] Enalapril Maleate [Vasotec] 20 mg PO DAILY 11/24/15 [History] metFORMIN [Glucophage] 1,000 mg PO BIDWM 11/24/15 [History] Buspirone HCl [Buspar] 10 mg PO TID 02/25/17 [History] Dicyclomine [Bentyl] 10 mg PO QID 02/25/17 [History] Escitalopram [Lexapro] 20 mg PO DAILY 02/25/17 [History] Gemfibrozil [Lopid] 600 mg PO BIDWM 02/25/17 [History] Glimepiride [Amaryl] 2 mg PO DAILY 02/25/17 [History] Allergies prednisolone Allergy (Verified 07/07/16 12:00) Rash, Shortness of Breath Review of Systems - Constitutional fatigue - EENT Nose, mouth and throat: no dizziness - Cardiovascular no chest pain - Gastrointestinal abdominal pain, nausea, vomiting - Genitourinary no flank pain - Integumentary no erythema - Neurological no confusion - Psychiatric no anxiety - Hematologic/Lymphatic no easy bleeding - Allergic/Immunologic no throat swelling Exam Initial Vital Signs Temp Pulse Resp BP Pulse Ox 99.9 F H 124 18 143/84 100 02/25/17 10:25 02/25/17 10:25 02/25/17 10:25 02/25/17 10:25 02/25/17 10:25 - General physical appearance Present: well developed, no distress - Eyes Present: PERRL - ENT Present: normal nares - Neck Present: no masses - Respiratory Present: normal respiratory effort - Abdomen Abdomen: Present: soft, tender (Mild) - Integumentary Present: no rash - Neurologic Present: normal coordination - Musculoskeletal Present: normal gait - Additional Findings Robotic surgical incision sites without hernia. Urology Results - Labs 02/26/17 04:29 02/26/17 04:29 Abnormal lab results MCV 79.8 fL (83.0-100.0) L 02/26/17 04:29 MCH 25.9 pg (28.0-33.3) L 02/26/17 04:29 RDW 14.7 % (11.5-14.5) H 02/26/17 04:29 Plt Count 138 K/mcL (140-400) L 02/26/17 04:29 PT 13.5 Seconds (9.4-12.1) H 02/26/17 04:29 Sodium 132 mEq/L (136-145) L 02/26/17 04:29 Glucose 263 mg/dL (70-99) H 02/26/17 04:29 POC Glucose 229 (58-89) H 02/26/17 04:06 Calcium 8.5 mg/dL (8.6-10.8) L 02/26/17 04:29 Albumin 2.4 g/dL (3.5-5.0) L 02/26/17 04:29 Globulin 4.5 g/dL (2.4-3.5) H 02/26/17 04:29 Albumin/Globulin Ratio 0.5 (1.1-2.2) L 02/26/17 04:29 Triglycerides 1307 mg/dL (< 150) H 02/26/17 04:29 Cholesterol 364 mg/dL (< 200) H 02/26/17 04:29 HDL Cholesterol 13 mg/dL (40-59) L 02/26/17 04:29 Cholesterol/HDL Ratio 28.0 (0-4.9) H 02/26/17 04:29 Lipase 193 Units/L (8-78) H 02/25/17 11:58 Ur Specific [place] > 1.030 (1.010-1.025) H 02/25/17 10:39 Urine Protein >=300 mg/dL (Neg-Trace) H 02/25/17 10:39 Urine Glucose (UA) >=1000 mg/dL (Normal) H 02/25/17 10:39 Urine Ketones 40 mg/dL (Negative) H 02/25/17 10:39 Urine Blood Moderate (Negative) H 02/25/17 10:39 Urine Microscopic RBC 15-30 per hpf (0-3) H 02/25/17 10:39 Ur Squamous Epith Cells Moderate per lpf (None-Few) H 02/25/17 10:39 Diabetes panel 02/26/17 Range/Units 04:29 Sodium 132 L (136-145) mEq/L Potassium 4.1 (3.5-4.5) mEq/L Chloride 100 (98-109) mEq/L Carbon Dioxide 22 (19-29) mEq/L BUN 8 (8-26) mg/dL Creatinine 0.99 (0.72-1.25) mg/dL Glucose 263 H (70-99) mg/dL Calcium 8.5 L (8.6-10.8) mg/dL AST 10 (5-34) Units/L ALT 10 (0-55) Units/L Alkaline Phosphatase 58 (38-126) Units/L Albumin 2.4 L (3.5-5.0) g/dL Triglycerides 1307 H (< 150) mg/dL HDL Cholesterol 13 L (40-59) mg/dL Calcium panel 02/26/17 Range/Units 04:29 Calcium 8.5 L (8.6-10.8) mg/dL Albumin 2.4 L (3.5-5.0) g/dL Pituitary panel 02/26/17 Range/Units 04:29 Sodium 132 L (136-145) mEq/L Potassium 4.1 (3.5-4.5) mEq/L Chloride 100 (98-109) mEq/L Carbon Dioxide 22 (19-29) mEq/L BUN 8 (8-26) mg/dL Creatinine 0.99 (0.72-1.25) mg/dL Glucose 263 H (70-99) mg/dL Calcium 8.5 L (8.6-10.8) mg/dL Adrenal panel 02/26/17 Range/Units 04:29 Sodium 132 L (136-145) mEq/L Potassium 4.1 (3.5-4.5) mEq/L Chloride 100 (98-109) mEq/L Carbon Dioxide 22 (19-29) mEq/L BUN 8 (8-26) mg/dL Creatinine 0.99 (0.72-1.25) mg/dL Glucose 263 H (70-99) mg/dL Calcium 8.5 L (8.6-10.8) mg/dL Total Bilirubin 0.6 (0.2-1.2) mg/dL AST 10 (5-34) Units/L ALT 10 (0-55) Units/L Alkaline Phosphatase 58 (38-126) Units/L Albumin 2.4 L (3.5-5.0) g/dL All other labs normal. Consult Discharge Plan - Plan Referrals: Marta Augustine [Primary Care Provider] -
[2017-02-26] MEDS ORDERED: Piperacillin/Tazobactam 3.375 GM in D5% in Water (Mini-Bag+) 100 ML IVPB SCH (08:00)
--- NOTE | 2017-02-26 08:24 | Internal Med Progress Note ---
<Dennise Sin - Last Filed: 02/26/17 16:58> Date of Encounter: 02/26/17 Time of Encounter: 08:08 - Assessment and plan (1) Pancreatitis Current Visit: Yes Status: Acute Assessment and plan: Patient described worsening abdominal pain that began approximately 4 days ago associated with nausea, vomiting and decrease in the amount and texture color of his bowel movements, left flank pain, chills, food aversion and decreased appetite due to pain, severe pain and burning of the esophagus with belching/ reflux symptoms. Patient was subsequently imaged as below. Abdomen/Pelvis CT 02/25/17 13:40 IMPRESSION: Significant acute inflammatory change is again demonstrated of the abdominal left upper quadrant, for which differential considerations are as previously described, though the lack of extraluminal contrast collection and lack of free air favors pancreatitis with reactive colitis, less likely jejunal perforation. Fatty liver. 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 Left UPJ obstruction is noted without left renal atrophy. Gallbladder Ultrasound 02/26/17 14:00 IMPRESSION: 1. Cholelithiasis without evidence of cholecystitis. 2. Nonspecific mild dilation of the common bile duct to 8 mm. No intrahepatic biliary dilation is seen. 3. Hepatic steatosis. 4. Large multiloculated cyst arising from the right kidney. Supportive care: IV fluids: Keep urinary output greater than 30 mils an hour to avoid potential kidney damage further. Fluid replacement is the single most important aspect of medical management. Pain control as needed Anti-medic as needed Trending labs: -Follow daily BUN and creatinine closely as these are indicator for progressing pancreatitis and clinical decline. -Calcium replacement may be indicated; will continue to follow. -Magnesium if indicated -Blood glucose control and insulin administration to keep glucose less than 1 50 mg/dL to reduce morbidity and mortality. Serial abdominal exams to assess for improvement in clinical status -IV antibiotics: Zosyn prophylactic coverage -Discontinue vancomycin: There is no evidence of abscess or MRSA. Jejunal inflammation is likely secondary to pancreatitis which is not treated with vancomycin. No indication for Vanc at this time. We will keep patient nothing by mouth except ice chips and popsicles until he demonstrates notable clinical improvement in nausea and abdominal pain. This will help prevent exacerbating his disease by him advancing diet to quickly. Surgery is following. Consult to GI for findings on gallbladder ultrasound. Suggestive of gallstone pancreatitis with possible passage of stone versus retained stone. Qualifiers: Chronicity: acute Pancreatitis type: other Acute pancreatitis complication: unspecified Qualified Code(s): K85.80 - Other acute pancreatitis without necrosis or infection (2) Jejunal inflammation Current Visit: Yes Status: Acute Assessment and plan: Likely secondary to pancreatitis as above. (3) Leukocytosis Current Visit: Yes Status: Acute Assessment and plan: Resolved Qualifiers: Leukocytosis type: unspecified Qualified Code(s): D72.829 - Elevated white blood cell count, unspecified (4) UPJ (ureteropelvic junction) obstruction Current Visit: No Status: Resolved Assessment and plan: Urology is following. Patient is asymptomatic. -Right atrophic kidney appears unchanged -Left hydronephrosis a normal finding after pyeloplasty -No evidence of high-grade obstruction in left solitary kidney -Normal renal function If patient does not improve clinically, we will consider CT urogram to evaluate with IV contrast. If patient is improving, no need to perform this study. Will continue to follow per urology recommendations (5) Diabetes Current Visit: Yes Status: Acute Assessment and plan: Hold oral hypoglycemics Basal insulin: 20 U SQ HS Corrective low-dose: As per protocol TIDAC Follow daily labs for glucose monitoring as well as per protocol Qualifiers: Diabetes mellitus type: type 2 Diabetes mellitus complication status: with kidney complications Diabetes mellitus complication detail: with chronic kidney disease Diabetes mellitus zyglo technician insulin use: without zyglo technician use Chronic kidney disease stage: unspecified stage Qualified Code(s): E11.22 - Type 2 diabetes mellitus with diabetic chronic kidney disease (6) HTN (hypertension) Current Visit: Yes Status: Acute Assessment and plan: Currently controlled will continue to monitor with vital checks per protocol/ every shifts daily. Qualifiers: Hypertension type: unspecified secondary hypertension Qualified Code(s): I15.9 - Secondary hypertension, unspecified; I15 - Secondary hypertension (7) DVT prophylaxis Current Visit: Yes Status: Acute Assessment and plan: The assessment and plan as outlined above was discussed with the patient and/or family members who expressed understanding and agreement. All questions were answered. Patient is up to ambulate without difficulty. Encourage ambulation. EPCDs to bilateral lower extremities for DVT prophylaxis - Subjective Interval history: Patient was seen and examined. Patient reports significant improvement in left lower quadrant abdominal and epigastric pain. He states his pain is 2 out of 10 and he has not had any nausea or vomiting since admission. Patient is hungry and is requesting ice chips or something to wet his mouth. No acute events overnight. Vital stable. MAXIMUM TEMPERATURE 99.9. - Constitutional Vitals: Temp Pulse Resp BP Pulse Ox 98.4 F 103 14 142/83 97 02/26/17 03:40 02/26/17 03:40 02/26/17 03:40 02/26/17 03:40 02/26/17 03:40 General appearance: Present: cooperative, mild distress, A&O X 3, morbidly obese , pleasant, answers questions appropriately Exam: General: Cooperative, pleasant, no acute distress, alert and oriented 3, answers questions appropriately HEENT: Normocephalic, atraumatic, neck supple, trachea midline, Conjunctiva pink , sclera anicteric, EOMI, PERRL, oral mucosa dry, no orophargeal erythema or exudates Respiratory: No accessory muscle usage, clear to auscultation bilaterally, no wheezes/rhonchi/rales appreciated Cardiovascular: Regular rate and rhythm, S1 and S2 present, no murmurs/rubs/ gallops/clicks appreciated GI/abdominal: Nondistended, mild tenderness to palpation left lower quadrant, soft, normal bowel sounds, no peritoneal signs Extremities: No calf tenderness, noncyanotic, no pedal edema appreciated, warm, lower extremity pulses palpable and symmetrical Neurological: Alert and oriented 3, no facial droop, no focal deficits Skin: Dry, intact, normal color Internal Medicine: Result - Labs CBC & Chem 7: 02/26/17 04:29 02/26/17 04:29 Labs: Short CBC 02/26/17 Range/Units 04:29 WBC 9.5 (4.3-11.1) K/mcL Hgb 13.1 D (12.9-16.9) g/dL Hct 40.3 (37.5-50.1) % Plt Count 138 L (140-400) K/mcL Neutrophils # 7.5 (1.6-8.9) K/mcL BMP 02/26/17 04:29 Sodium 132 L Potassium 4.1 Chloride 100 Carbon Dioxide 22 BUN 8 Creatinine 0.99 Glucose 263 H Calcium 8.5 L Liver Function 02/26/17 Range/Units 04:29 Total Bilirubin 0.6 (0.2-1.2) mg/dL AST 10 (5-34) Units/L ALT 10 (0-55) Units/L Alkaline Phosphatase 58 (38-126) Units/L Albumin 2.4 L (3.5-5.0) g/dL - ABG Interpretation ABG results: PT/INR, D-dimer PT 13.5 Seconds (9.4-12.1) H 02/26/17 04:29 - VTE Documentation of Mechanical Device: Graduated compression elastic hosiery Consult Discharge Plan - Plan Referrals: Marta Augustine [Primary Care Provider] - <Kwesi Elmore - Last Filed: 02/26/17 18:13> Date of Encounter: 02/26/17 - Constitutional Vitals: Temp Pulse Resp BP Pulse Ox 98.7 F 104 14 124/75 95 02/26/17 16:30 02/26/17 16:30 02/26/17 16:30 02/26/17 16:30 02/26/17 16:30 Internal Medicine: Result - Labs CBC & Chem 7: 02/26/17 04:29 02/26/17 04:29 Labs: Short CBC 02/26/17 Range/Units 04:29 WBC 9.5 (4.3-11.1) K/mcL Hgb 13.1 D (12.9-16.9) g/dL Hct 40.3 (37.5-50.1) % Plt Count 138 L (140-400) K/mcL Neutrophils # 7.5 (1.6-8.9) K/mcL BMP 02/26/17 04:29 Sodium 132 L Potassium 4.1 Chloride 100 Carbon Dioxide 22 BUN 8 Creatinine 0.99 Glucose 263 H Calcium 8.5 L Liver Function 02/26/17 Range/Units 04:29 Total Bilirubin 0.6 (0.2-1.2) mg/dL AST 10 (5-34) Units/L ALT 10 (0-55) Units/L Alkaline Phosphatase 58 (38-126) Units/L Albumin 2.4 L (3.5-5.0) g/dL - ABG Interpretation ABG results: PT/INR, D-dimer PT 13.5 Seconds (9.4-12.1) H 02/26/17 04:29 - Impressions Impressions Gallbladder Ultrasound 02/26/17 14:00 IMPRESSION: 1. Cholelithiasis without evidence of cholecystitis. 2. Nonspecific mild dilation of the common bile duct to 8 mm. No intrahepatic biliary dilation is seen. 3. Hepatic steatosis. 4. Large multiloculated cyst arising from the right kidney. D/ / 02/26/2017 15:46:07 Connor Yoo MD / bernabe Interpreting Provider: Connor Yoo MD - Attending Attestation I examined this patient and my medical decision-making was reviewed with the AIRPORT ELECTRICIAN/PA/Advanced Practice Nurse/Resident Physician. I agree with the documented findings, disposition and treatment plan as described except to the extent set forth below. pancreatitis, biliary? trig 1300? Gallstones and cbd dilation, will follow surgical input and gi has been consulted. No indication for antibiotics since no necrosis. D/W resident.
[2017-02-26] MEDS: BuPROPion SR (12 HR) 150 MG TABLET PO SCH ×2 (08:42→21:13)
[2017-02-26] MEDS: Insulin LISPRO 300 UNITS/3 ML VIAL SQ SCH ×4 (08:43→21:15)
[2017-02-26] MEDS: Pantoprazole 40 MG VIAL IVP SCH (08:43)
[2017-02-26] MEDS ORDERED: ENALAPRIL MALEATE 20 MG PO SCH (09:00)
[2017-02-26 10:43] LABS: Hemoglobin A1C 10.7 %
--- NOTE | 2017-02-26 11:53 | General Surgery Progress Note ---
Date of Encounter: 02/26/17 Time of Encounter: 11:50 - Assessment and Plan (1) Jejunal inflammation Current Visit: Yes Status: Acute pain significantly improved, ok to start clears and see how patient tolerates (2) Leukocytosis Current Visit: Yes Status: Acute continue abx, wbc decreasing Qualifiers: Leukocytosis type: unspecified Qualified Code(s): D72.829 - Elevated white blood cell count, unspecified (3) Diabetes Current Visit: Yes Status: Acute mbs checks, ssi, management per hospitalist Qualifiers: Diabetes mellitus type: type 2 Diabetes mellitus complication status: with kidney complications Diabetes mellitus complication detail: with chronic kidney disease Diabetes mellitus nursing home insulin use: without nursing home use Chronic kidney disease stage: unspecified stage Qualified Code(s): E11.22 - Type 2 diabetes mellitus with diabetic chronic kidney disease (4) HTN (hypertension) Current Visit: Yes Status: Acute ok to continue home meds Qualifiers: Hypertension type: unspecified secondary hypertension Qualified Code(s): I15.9 - Secondary hypertension, unspecified; I15 - Secondary hypertension (5) Pancreatitis Current Visit: Yes Status: Acute continue ivf hydration prn pain control gi/dvt prophylaxis trend labs serial abdominal exams no surgical intervention at this time pancreatitis caused by elevated triglycerides Qualifiers: Chronicity: acute Pancreatitis type: other Acute pancreatitis complication: unspecified Qualified Code(s): K85.80 - Other acute pancreatitis without necrosis or infection Subjective Patient reports: no new complaints, feels better, still having pain, pain is less Objective Vital Signs - Last 8 Hours Temp Pulse Resp BP Pulse Ox 02/26/17 10:42 98.8 F 100 16 119/74 96 02/26/17 08:26 99.2 F 109 16 138/79 95 Intake and Output 02/25/17 02/26/17 02/26/17 23:59 07:59 15:59 Intake Total 500 / 500 1000 / 1000 1090 / 1090 Output Total 225 / 225 0 / 0 1100 / 1100 Balance 275 / 275 1000 / 1000 -10 / -10 Intake: IV Fluids 500 / 500 1000 / 1000 1000 / 1000 0.9 % Sodium Chloride 1, 1000 / 1000 1000 / 1000 000 ML @ 150 mls/hr IVC . Q6H40M [facility] Rx#:[id number] Vancocin 2,000 MG In 500 / 500 Dextrose 5% 500 ML @ 250 mls/hr IVPB Q12H [facility] Rx#: [id number] Oral 0 / 0 0 / 0 90 / 90 Output: Urine 225 / 225 0 / 0 1100 / 1100 Other: Meal NPO # Voids 1 Weight 137.166 kg 135.669 kg Blood Glucose* 265 229 Patient Weight 02/26/17 23:59 Weight 135.669 kg - General physical appearance well developed, well nourished, no distress, obese - Eyes PERRL, normal ocular movement - ENT normal mucosa, normocephalic - Neck Neck exam: trachea midline - Respiratory normal expansion, clear to auscultation - Cardiovascular Cardiovascular exam: Present: tachycardia - Abdomen Abdomen: Present: bowel sounds present, soft, tender (but significantly less so than yesterday) - Integumentary no rash, no growths - Neurologic CN 2-12 grossly intact, normal coordination - Musculoskeletal normal gait, normal posture - Psychiatric oriented to time, oriented to person, oriented to place, speech is normal, memory intact - Labs 02/26/17 04:29 02/26/17 04:29 Short CBC 02/26/17 Range/Units 04:29 WBC 9.5 (4.3-11.1) K/mcL Hgb 13.1 D (12.9-16.9) g/dL Hct 40.3 (37.5-50.1) % Plt Count 138 L (140-400) K/mcL Neutrophils # 7.5 (1.6-8.9) K/mcL BMP 02/26/17 02/25/17 Range/Units 04:29 11:58 Sodium 132 L 129 L (136-145) mEq/L Potassium 4.1 4.8 H (3.5-4.5) mEq/L Chloride 100 97 L (98-109) mEq/L Carbon Dioxide 22 23 (19-29) mEq/L BUN 8 7 L (8-26) mg/dL Creatinine 0.99 1.07 (0.72-1.25) mg/dL Glucose 263 H 376 H (70-99) mg/dL Calcium 8.5 L 9.0 (8.6-10.8) mg/dL Liver Function 02/26/17 02/25/17 Range/Units 04:29 11:58 Total Bilirubin 0.6 0.7 (0.2-1.2) mg/dL Direct Bilirubin 0.2 (0.0-0.5) mg/dL AST 10 31 (5-34) Units/L ALT 10 15 (0-55) Units/L Alkaline Phosphatase 58 61 (38-126) Units/L Albumin 2.4 L 2.9 L (3.5-5.0) g/dL Vital Signs Temp Pulse Resp BP Pulse Ox 02/26/17 10:42 98.8 F 100 16 119/74 96 02/26/17 08:26 99.2 F 109 16 138/79 95 02/26/17 03:40 98.4 F 103 14 142/83 97 02/26/17 01:26 98.3 F 102 15 125/74 96 02/25/17 23:34 99.3 F 106 16 142/82 94 02/25/17 21:26 99.9 F H 120 15 127/71 94 02/25/17 19:31 99.3 F 118 14 129/78 97 02/25/17 16:40 98.9 F 02/25/17 16:36 16 124/63 02/25/17 16:27 124 18 156/58 93 02/25/17 13:42 115 16 137/75 95 02/25/17 12:45 118 16 152/88 95 Intake and Output 02/25/17 02/26/17 02/26/17 23:59 07:59 15:59 Intake Total 500 / 500 1000 / 1000 1090 / 1090 Output Total 225 / 225 0 / 0 1100 / 1100 Balance 275 / 275 1000 / 1000 -10 / -10 Intake: IV Fluids 500 / 500 1000 / 1000 1000 / 1000 0.9 % Sodium Chloride 1, 1000 / 1000 1000 / 1000 000 ML @ 150 mls/hr IVC . Q6H40M [facility] Rx#:[id number] Vancocin 2,000 MG In 500 / 500 Dextrose 5% 500 ML @ 250 mls/hr IVPB Q12H [facility] Rx#: [id number] Oral 0 / 0 0 / 0 90 / 90 Output: Urine 225 / 225 0 / 0 1100 / 1100 Other: Meal NPO # Voids 1 Weight 137.166 kg 135.669 kg Blood Glucose* 265 229 Patient Weight 02/26/17 23:59 Weight 135.669 kg - VTE Documentation of Mechanical Device: Graduated compression elastic hosiery Consult Discharge Plan - Plan Referrals: Marta Augustine [Primary Care Provider] -
[2017-02-26] MEDS ORDERED: Dextrose Gel 15 GM PO PRN (11:56)
[2017-02-26] MEDS ORDERED: *HR* Dextrose 50 % in Water (Syg) 50 ML SYRINGE IVP PRN (11:56)
[2017-02-26] MEDS ORDERED: D5% in Water 1,000 ML IVC PRN (11:56)
[2017-02-26] MEDS ORDERED: Insulin DETEMIR 100 UNIT/ML X5UNITS SQ SCH (21:00)
[2017-02-27] MEDS: 0.9 % Sodium Chloride 1,000 ML IVC SCH ×3 (00:19→09:13)
[2017-02-27 04:54] LABS: Basophils % 0.2 %; Eosinophils # 0.3 K/mcL (0.0-0.6); Eosinophils % 3.4 %; Hematocrit 37.3 % (37.5-50.1); Hemoglobin 11.9 g/dL (12.9-16.9); Immature Granulocytes % 0.7 % (0-4); Lymphocytes # 1.3 K/mcL (0.6-4.6); Lymphocytes % 14.8 %; Mean Corpuscular HGB Conc 31.9 g/dL (31.6-35.5); Mean Corpuscular Hemoglobin 25.5 pg (28.0-33.3); Mean Platelet Volume 11.1 fL (9.4-12.4); Monocytes # 0.7 K/mcL (0.0-1.3); Monocytes % 7.6 %; Neutrophils # 6.5 K/mcL (1.6-8.9); Platelet Count 165 K/mcL (140-400); Red Blood Count 4.66 M/mcL (4.19-5.50); Red Cell Distribution Width 14.8 % (11.5-14.5); Segmented Neutrophils % 73.3 %
[2017-02-27 05:01] LABS: INR 1.2; Prothrombin Time 13.1 Seconds (9.4-12.1)
[2017-02-27 05:11] LABS: Alanine Aminotransferase 13 Units/L (0-55); Albumin 2.1 g/dL (3.5-5.0); Albumin/Globulin Ratio 0.5 (1.1-2.2); Alkaline Phosphatase 55 Units/L (38-126); Aspartate Amino Transferase 12 Units/L (5-34); BUN/Creatinine Ratio 10 (6-26); Bilirubin,Total 0.4 mg/dL (0.2-1.2); Blood Urea Nitrogen 9 mg/dL (8-26); Calcium 8.6 mg/dL (8.6-10.8); Carbon Dioxide 23 mEq/L (19-29); Chloride 103 mEq/L (98-109); Globulin 4.2 g/dL (2.4-3.5); Glucose 243 mg/dL (70-99); Osmolality,Calculated 285 (280-300); Potassium 3.9 mEq/L (3.5-4.5); Sodium 134 mEq/L (136-145); Total Protein 6.3 g/dL (6.0-8.3); eGFR For African Americans > 60 (> 60); eGFR For Non-African Americans > 60 (> 60)
--- NOTE | 2017-02-27 09:42 | Internal Med Progress Note ---
<Dennise Sin - Last Filed: 02/27/17 13:00> Date of Encounter: 02/27/17 Time of Encounter: 08:00 - Assessment and plan (1) Pancreatitis Status: Acute Assessment and plan: Patient described worsening abdominal pain that began approximately 4 days ago associated with nausea, vomiting and decrease in the amount and texture color of his bowel movements, left flank pain, chills, food aversion and decreased appetite due to pain, severe pain and burning of the esophagus with belching/ reflux symptoms. CT scan demonstrated pancreatitis with reactive colitis. Gallbladder ultrasound demonstrated cholelithiasis without cholecystitis and nonspecific dilation of the common bile duct. Labs: BUN: 8.9<9 Creatinine: 0.94=0.94 Calcium: 8.6 Glucose: 243 Physical exam today shows patient is much improved since admission. One out of 10 pain on abdominal palpation without rebound, guarding, peritoneal signs. Patient tolerated his clear liquid diet very well yesterday. Plan to advance today. Supportive care: IV fluids: Keep urinary output greater than 30 mils an hour to avoid potential kidney damage further. Fluid replacement is the single most important aspect of medical management in pancreatitis. Will decrease rate today to 75 ml/hr Pain control as needed Anti-emetic as needed Trending labs: -Follow daily BUN and creatinine closely as these are indicator for progressing pancreatitis and clinical decline. -Calcium replacement may be indicated; will continue to follow. Serial abdominal exams to assess for improvement in clinical status -IV antibiotics: Discontinue -Discontinue vancomycin: There is no evidence of abscess or MRSA. Jejunal inflammation is likely secondary to pancreatitis which is not treated with vancomycin. No indication for Vanc at this time. -Advance to Cardiac low fat diet. -Continue to Treat elevated Triglycerides: Gemfibrozil 600 mg BIDWM -Continue Insulin: Blood glucose control and insulin administration to keep glucose less than 150 mg/dL to reduce morbidity and mortality. Adjusted today as pt glucoses are in the 250 range requiring 6 units plus low dose sliding scale. Surgery is following. Per recommendations: -PENDING MRCP: if stones are found in common bile duct will consult GI for ERCP and plan for cholecystectomy afterwards however, if no stones in common bile duct no surgical intervention is warranted. If negative likely to discharge home as patient is stable. Surgery following. Will follow recommendations. Consult to GI for findings on gallbladder ultrasound. Suggestive of gallstone pancreatitis with possible passage of stone versus retained stone. Pending MRCP. Qualifiers: Chronicity: acute Pancreatitis type: other Acute pancreatitis complication: unspecified Qualified Code(s): K85.80 - Other acute pancreatitis without necrosis or infection (2) Jejunal inflammation Status: Acute Assessment and plan: Likely secondary to pancreatitis as above. (3) Leukocytosis Status: Resolved Assessment and plan: Resolved Qualifiers: Leukocytosis type: unspecified Qualified Code(s): D72.829 - Elevated white blood cell count, unspecified (4) Diabetes Status: Acute Assessment and plan: Hold oral hypoglycemics Basal insulin: 20 U SQ HS 6 Units plus Corrective low-dose: As per protocol TIDAC Follow daily labs for glucose monitoring as well as per protocol Qualifiers: Diabetes mellitus type: type 2 Diabetes mellitus complication status: with kidney complications Diabetes mellitus complication detail: with chronic kidney disease Diabetes mellitus ammunition components inspector insulin use: without ammunition components inspector use Chronic kidney disease stage: unspecified stage Qualified Code(s): E11.22 - Type 2 diabetes mellitus with diabetic chronic kidney disease (5) HTN (hypertension) Status: Acute Assessment and plan: Currently controlled will continue to monitor with vital checks per protocol/ every shifts daily. Qualifiers: Hypertension type: unspecified secondary hypertension Qualified Code(s): I15.9 - Secondary hypertension, unspecified; I15 - Secondary hypertension (6) DVT prophylaxis Status: Acute Assessment and plan: The assessment and plan as outlined above was discussed with the patient and/or family members who expressed understanding and agreement. All questions were answered. Patient is up to ambulate without difficulty. Encourage ambulation. EPCDs to bilateral lower extremities for DVT prophylaxis - Subjective Interval history: Patient was seen and examined. Patient reports significant improvement in left lower quadrant abdominal and epigastric pain. He states his pain is even less than yesterday at 1/10 2 and he has not had any nausea or vomiting since admission. Patient describes multiple episodes of loose stools and gas after his clear diet was started yesterday. Patient is hungry and is requesting diet advancement. No acute events overnight. Vital stable. MAXIMUM TEMPERATURE 99.9. - Constitutional Vitals: Temp Pulse Resp BP Pulse Ox 98.2 F 96 19 130/75 95 02/27/17 06:42 02/27/17 06:42 02/27/17 06:42 02/27/17 06:42 02/27/17 06:42 General appearance: Present: cooperative, mild distress, A&O X 3, morbidly obese , pleasant, answers questions appropriately Exam: General: Cooperative, pleasant, no acute distress, alert and oriented 3, answers questions appropriately, obese HEENT: Normocephalic, atraumatic, neck supple, trachea midline, Conjunctiva pink , sclera anicteric, EOMI, PERRL, oral mucosa moist, no orophargeal erythema or exudates Respiratory: No accessory muscle usage, clear to auscultation bilaterally, no wheezes/rhonchi/rales appreciated Cardiovascular: Regular rate and rhythm, S1 and S2 present, no murmurs/rubs/ gallops/clicks appreciated GI/abdominal: Nondistended, minimally tender to palpation LUQ, soft, normal bowel sounds, no peritoneal signs Extremities: No calf tenderness, noncyanotic, no pedal edema appreciated, warm, lower extremity pulses palpable and symmetrical Neurological: Alert and oriented 3, no facial droop, no focal deficits Skin: Dry, intact, normal color Internal Medicine: Result - Labs CBC & Chem 7: 02/27/17 04:08 02/27/17 04:08 Labs: Short CBC 02/27/17 Range/Units 04:08 WBC 8.9 (4.3-11.1) K/mcL Hgb 11.9 L (12.9-16.9) g/dL Hct 37.3 L (37.5-50.1) % Plt Count 165 (140-400) K/mcL Neutrophils # 6.5 (1.6-8.9) K/mcL BMP 02/27/17 04:08 Sodium 134 L Potassium 3.9 Chloride 103 Carbon Dioxide 23 BUN 9 Creatinine 0.94 Glucose 243 H Calcium 8.6 Liver Function 02/27/17 Range/Units 04:08 Total Bilirubin 0.4 (0.2-1.2) mg/dL AST 12 (5-34) Units/L ALT 13 (0-55) Units/L Alkaline Phosphatase 55 (38-126) Units/L Albumin 2.1 L (3.5-5.0) g/dL - ABG Interpretation ABG results: PT/INR, D-dimer PT 13.1 Seconds (9.4-12.1) H 02/27/17 04:08 - Impressions Impressions Gallbladder Ultrasound 02/26/17 14:00 IMPRESSION: 1. Cholelithiasis without evidence of cholecystitis. 2. Nonspecific mild dilation of the common bile duct to 8 mm. No intrahepatic biliary dilation is seen. 3. Hepatic steatosis. 4. Large multiloculated cyst arising from the right kidney. D/ / 02/26/2017 15:46:07 Connor Yoo MD / [email or web address] Interpreting Provider: Connor Yoo MD - VTE Documentation of Mechanical Device: Graduated compression elastic hosiery Consult Discharge Plan - Plan Instructions: Pancreatitis (DC) Additional Instructions: Gastroenterology follow-up. Follow-up with general surgery. Follow-up with primary care physician. Referrals: Elda Escalante MD [Partnered Physician] - 03/13/17 1:50 pm Linda Swift CNP [Advanced Practice Nurse] - (WEB REQUEST - OFFICE WILL CALL WITH APPOINTMENT) Dennise Baer CNP [Advanced Practice Nurse] - 04/04/17 8:15 am Prescriptions: Insulin NPH Hum/Reg Insulin Hm [Novolin 70-30 100 Unit/ml Vial] 18 unit SQ BID 14 Days <Kwesi Elmore - Last Filed: 02/27/17 17:58> Date of Encounter: 02/27/17 - Assessment and plan (1) Pancreatitis Status: Acute Qualifiers: Chronicity: acute Pancreatitis type: other Acute pancreatitis complication: unspecified Qualified Code(s): K85.80 - Other acute pancreatitis without necrosis or infection (2) Cholelithiasis Status: Acute Qualifiers: Cholelithiasis location: gallbladder Cholecystitis presence: without cholecystitis Biliary obstruction: without biliary obstruction Qualified Code(s): K80.20 - Calculus of gallbladder without cholecystitis without obstruction (3) DVT prophylaxis Status: Acute (4) Diabetes Status: Acute Qualifiers: Diabetes mellitus type: type 2 Diabetes mellitus complication status: with kidney complications Diabetes mellitus complication detail: with chronic kidney disease Diabetes mellitus halfway insulin use: without ammunition components inspector use Chronic kidney disease stage: unspecified stage Qualified Code(s): E11.22 - Type 2 diabetes mellitus with diabetic chronic kidney disease (5) GERD (gastroesophageal reflux disease) Status: Acute Qualifiers: Esophagitis presence: esophagitis presence not specified Qualified Code(s) : K21.9 - Gastro-esophageal reflux disease without esophagitis (6) HTN (hypertension) Status: Acute Qualifiers: Hypertension type: unspecified secondary hypertension Qualified Code(s): I15.9 - Secondary hypertension, unspecified; I15 - Secondary hypertension (7) Hypertriglyceridemia Status: Acute (8) UPJ (ureteropelvic junction) obstruction Status: Chronic - Constitutional Vitals: Temp Pulse Resp BP Pulse Ox 98.4 F 87 18 123/81 97 02/27/17 13:52 02/27/17 13:52 02/27/17 13:52 02/27/17 13:52 02/27/17 13:52 Internal Medicine: Result - Labs CBC & Chem 7: 02/27/17 04:08 02/27/17 04:08 Labs: Short CBC 02/27/17 Range/Units 04:08 WBC 8.9 (4.3-11.1) K/mcL Hgb 11.9 L (12.9-16.9) g/dL Hct 37.3 L (37.5-50.1) % Plt Count 165 (140-400) K/mcL Neutrophils # 6.5 (1.6-8.9) K/mcL BMP 02/27/17 04:08 Sodium 134 L Potassium 3.9 Chloride 103 Carbon Dioxide 23 BUN 9 Creatinine 0.94 Glucose 243 H Calcium 8.6 Liver Function 02/27/17 Range/Units 04:08 Total Bilirubin 0.4 (0.2-1.2) mg/dL AST 12 (5-34) Units/L ALT 13 (0-55) Units/L Alkaline Phosphatase 55 (38-126) Units/L Albumin 2.1 L (3.5-5.0) g/dL - ABG Interpretation ABG results: PT/INR, D-dimer PT 13.1 Seconds (9.4-12.1) H 02/27/17 04:08 - Impressions Impressions Gallbladder Ultrasound 02/26/17 14:00 IMPRESSION: 1. Cholelithiasis without evidence of cholecystitis. 2. Nonspecific mild dilation of the common bile duct to 8 mm. No intrahepatic biliary dilation is seen. 3. Hepatic steatosis. 4. Large multiloculated cyst arising from the right kidney. D/ / 02/26/2017 15:46:07 Connor Yoo MD / [email or web address] Interpreting Provider: Connor Yoo MD Abdomen MRI 02/27/17 12:18 IMPRESSION: Significant cyst formation seen within the right kidney likely secondary to chronic UPJ obstruction. No evidence for stones seen within the gallbladder and no evidence for stones seen within the common bile duct. Please note however this examination is somewhat limited. Extrarenal pelvis on the left. Stranding and fluid seen around the body and tail of the pancreas likely secondary to pancreatitis. D/ / 02/27/2017 14:03:22 Nasir Baer MD / [place] Interpreting Provider: Nasir Baer MD - Attending Attestation I examined this patient and my medical decision-making was reviewed with the INSURANCE COMPLIANCE ANALYST/PA/Advanced Practice Nurse/Resident Physician. I agree with the documented findings, disposition and treatment plan as described except to the extent set forth below.
[2017-02-27] MEDS: Insulin LISPRO 300 UNITS/3 ML VIAL SQ SCH ×2 (09:55→14:22)
[2017-02-27] MEDS: BuPROPion SR (12 HR) 150 MG TABLET PO SCH (09:57)
[2017-02-27] MEDS: Pantoprazole 40 MG VIAL IVP SCH (09:58)
--- NOTE | 2017-02-27 11:38 | General Surgery Progress Note ---
Date of Encounter: 02/27/17 Time of Encounter: 11:34 - Assessment and Plan (1) Jejunal inflammation Current Visit: Yes Status: Acute pain significantly improved, tolerated clears, advanced to cardiac low fat diet (2) Leukocytosis Current Visit: Yes Status: Resolved resolved Qualifiers: Leukocytosis type: unspecified Qualified Code(s): D72.829 - Elevated white blood cell count, unspecified (3) Diabetes Current Visit: Yes Status: Acute mbs checks, ssi, management per hospitalist Qualifiers: Diabetes mellitus type: type 2 Diabetes mellitus complication status: with kidney complications Diabetes mellitus complication detail: with chronic kidney disease Diabetes mellitus [facility] insulin use: without [facility] use Chronic kidney disease stage: unspecified stage Qualified Code(s): E11.22 - Type 2 diabetes mellitus with diabetic chronic kidney disease (4) HTN (hypertension) Current Visit: Yes Status: Acute ok to continue home meds Qualifiers: Hypertension type: unspecified secondary hypertension Qualified Code(s): I15.9 - Secondary hypertension, unspecified; I15 - Secondary hypertension (5) Pancreatitis Current Visit: Yes Status: Acute prn pain control gi/dvt prophylaxis lipase wnl yesterday pain almost nonexistant benign abdominal exam no surgical intervention at this time pancreatitis likely caused by elevated triglycerides yes patient has cholelithiasis, lfts wnl and patient asymptomatic from gallbladder standpoint, cbd is a little dilated on US, would recommend MRCP to evaluate, if stones in common bile duct then consult GI for ercp and will plan cholecystectomy afterwards, if no stones in cbd would not plan any surgical intervention Qualifiers: Chronicity: acute Pancreatitis type: other Acute pancreatitis complication: unspecified Qualified Code(s): K85.80 - Other acute pancreatitis without necrosis or infection Subjective Patient reports: no new complaints, feels better, still having pain, pain is less, tolerating a regular diet, voiding w/o difficulty, afebrile Objective Vital Signs - Last 8 Hours Temp Pulse Resp BP Pulse Ox 02/27/17 10:35 97.9 F 102 18 118/67 96 02/27/17 06:42 98.2 F 96 19 130/75 95 02/27/17 03:48 98.6 F 95 14 123/73 97 Intake and Output 02/26/17 02/27/17 02/27/17 23:59 07:59 15:59 Intake Total 2140 / 2140 1000 / 1000 1360 / 1360 Output Total 200 / 200 900 / 900 0 / 0 Balance 1940 / 1940 100 / 100 1360 / 1360 Intake: IV Fluids 1100 / 1100 1000 / 1000 1000 / 1000 0.9 % Sodium Chloride 1, 1000 / 1000 1000 / 1000 1000 / 1000 000 ML @ 150 mls/hr IVC . Q6H40M [facility] Rx#:[id number] Zosyn 3.375 GM In 100 / 100 Dextrose 5% (Minibag+) 100 ML 100 ML @ 25 mls/hr IVPB Q12H [facility] Rx#: [id number] Oral 1040 / 1040 0 / 0 360 / 360 Output: Urine 200 / 200 900 / 900 0 / 0 Other: Meal Breakfast Percent of Meal Consumed 25% # Voids 1 Weight 134.853 kg Blood Glucose* 232 224 Patient Weight 02/27/17 23:59 Weight 134.853 kg - General physical appearance well developed, well nourished, no distress, no pain, obese - Eyes PERRL, normal ocular movement - ENT normal mucosa, normocephalic - Neck Neck exam: trachea midline - Respiratory normal expansion, clear to auscultation - Cardiovascular Cardiovascular exam: Present: RRR, no murmurs/rubs/gallops - Abdomen Abdomen: Present: bowel sounds present, soft, tender (minimally right abdomen, no rebound or guarding) - Integumentary no rash, no growths - Neurologic CN 2-12 grossly intact - Musculoskeletal normal posture - Labs 02/27/17 04:08 02/27/17 04:08 Short CBC 02/27/17 Range/Units 04:08 WBC 8.9 (4.3-11.1) K/mcL Hgb 11.9 L (12.9-16.9) g/dL Hct 37.3 L (37.5-50.1) % Plt Count 165 (140-400) K/mcL Neutrophils # 6.5 (1.6-8.9) K/mcL BMP 02/27/17 Range/Units 04:08 Sodium 134 L (136-145) mEq/L Potassium 3.9 (3.5-4.5) mEq/L Chloride 103 (98-109) mEq/L Carbon Dioxide 23 (19-29) mEq/L BUN 9 (8-26) mg/dL Creatinine 0.94 (0.72-1.25) mg/dL Glucose 243 H (70-99) mg/dL Calcium 8.6 (8.6-10.8) mg/dL Liver Function 02/27/17 Range/Units 04:08 Total Bilirubin 0.4 (0.2-1.2) mg/dL AST 12 (5-34) Units/L ALT 13 (0-55) Units/L Alkaline Phosphatase 55 (38-126) Units/L Albumin 2.1 L (3.5-5.0) g/dL Vital Signs Temp Pulse Resp BP Pulse Ox 02/27/17 10:35 97.9 F 102 18 118/67 96 02/27/17 06:42 98.2 F 96 19 130/75 95 02/27/17 03:48 98.6 F 95 14 123/73 97 02/26/17 23:31 98.9 F 97 15 111/70 97 02/26/17 20:15 99.2 F 99 14 125/76 98 02/26/17 16:30 98.7 F 104 14 124/75 95 Intake and Output 02/26/17 02/27/17 02/27/17 23:59 07:59 15:59 Intake Total 2140 / 2140 1000 / 1000 1360 / 1360 Output Total 200 / 200 900 / 900 0 / 0 Balance 1940 / 1940 100 / 100 1360 / 1360 Intake: IV Fluids 1100 / 1100 1000 / 1000 1000 / 1000 0.9 % Sodium Chloride 1, 1000 / 1000 1000 / 1000 1000 / 1000 000 ML @ 150 mls/hr IVC . Q6H40M [facility] Rx#:[id number] Zosyn 3.375 GM In 100 / 100 Dextrose 5% (Minibag+) 100 ML 100 ML @ 25 mls/hr IVPB Q12H [facility] Rx#: [id number] Oral 1040 / 1040 0 / 0 360 / 360 Output: Urine 200 / 200 900 / 900 0 / 0 Other: Meal Breakfast Percent of Meal Consumed 25% # Voids 1 Weight 134.853 kg Blood Glucose* 232 224 Patient Weight 02/27/17 23:59 Weight 134.853 kg - Imaging US - abdomen: report reviewed - VTE Documentation of Mechanical Device: Graduated compression elastic hosiery Consult Discharge Plan - Plan Referrals: Marta Augustine [Primary Care Provider] -
--- NOTE | 2017-02-27 12:44 | Gastroenterology Consult Note ---
<Linda Swift - Last Filed: 02/27/17 14:51> Date of Encounter: 02/27/17 Time of Encounter: 14:35 - Assessment and plan (1) Hypertriglyceridemia Status: Acute Assessment and plan: Triglycerides were very elevated at 1307. Likely the cause of patient acute pancreatitis. Will r/o other causes. (2) UPJ (ureteropelvic junction) obstruction Status: Chronic (3) Pancreatitis Status: Acute Assessment and plan: Lipase has returned to normal, patient is beginning to start food ingestion. (4) Leukocytosis Status: Resolved (5) GERD (gastroesophageal reflux disease) Status: Acute - Time Spent With Patient Total time spent is greater than 50% in coordination of care (as documented) at patient's floor/unit and/or counseling patient: less than 15 minutes GI History of Present Illness - Data of Consult Patient: new to practice Consult date: 02/27/17 Requesting Physician: Kwesi Elmore - Consult Narrative Reason for consult: Pancreatitis. History of present illness: Mr. Dominguez is a 31 year old male with a significant PMH of diabetes, GERD, hyperlipidemia, UPJ obstruction of L kidney, gout, anxiety, depression, depression and PTSD. He presented 02/25/17 to the ED with a complaint of abd pain , N/V, heartburn and dark stools which had began on Saturday am. He progressively worsened prompting his visit to the ED. He stated he had similar symptoms a year ago that were not as bad as these he has now. Patient reported he was febrile (99.9) and had chills, SOB, and aches/pains which felt similar to the flu for the two days prior to admission. Patient denied diarrhea, but stated he did have two formed, black bowel movements at admission. Patient reported his right kidney is non-functional and atrophied since he was a child. CT scan with contrast shows pancreatitis with reactive colitis versus the less likely possibility of jejunal perforation. Subsequent imaging and improvement in his symptoms ruled out a jejunal perforation. He was seen in consultation by both surgery and urology. A gallbladder US showed possible stones or sludge, his LFTs have been normal. Labs revealed an elevated triglyceride level at 1307. Lipase has returned to normal. A MRCP that had been ordered to r/o choledocholelithiasis, was negative for same. Patient is feeling much improved, ate a normal diet earlier today with no ill effects and is preparing to be d/c home. He will complete pancreas labs as OTPT and f/u in OV with GI Colonoscopy: None noted EGD: None noted Past Med Surg Social Fam HX - Past Medical History Medical history: diabetes, GERD, hyperlipidemia, hypertension, other Psychiatric history: anxiety, depression - Past Surgical History Surgical History: other - Social History Smoking Status: Never smoker Smokeless Tobacco Status: No Alcohol use: none, rarely Drug use: none - Family History Grandmother History Unknown: Yes Mother Race: Family Member Ethnicity: Non- Living Status: Still Living Hx Family Cardiac Disorders: Yes (HTN) Hx Family Endocrine Disorder: Yes (DM, Thyroid) Father Race: Family Member Ethnicity: Non- Living Status: Still Living Hx Family Cardiac Disorders: Yes (Hyperlipidemia, HTN) Hx Family Genitourinary Disorders: Yes (Gout) Hx Family Endocrine Disorder: Yes (DM) Hx Family Musculoskeletal Disorders: Yes (Gout) - Gastrointestinal NSAID use: None noted Anticoagulation Use: None noted Number of BM Per Day: daily Gastrointestinal: Present: abdominal pain, nausea, vomiting - Constitutional Constitutional: as per HPI - EENT Eyes: as per HPI Ears: Present: as per HPI Nose, mouth and throat: Present: as per HPI - Cardiovascular Cardiovascular ROS: Present: as per HPI - Respiratory Respiratory IM: Present: as per HPI - Neurological ROS Neurological GI: Present: as per HPI - Hematologic/Lymphatic Hematologic/Lymphatic pediatric: Present: as per HPI - Musculoskeletal Musculoskeletal ROS GI: Present: as per HPI - Integumentary Integumentary GI: Present: as per HPI - Psychiatric ROS Psychiatric GI: Present: as per HPI - Endocrine Endocrine IM: Present: as per HPI - Constitutional Vitals: Temp Pulse Resp BP Pulse Ox 97.9 F 102 18 118/67 96 02/27/17 10:35 02/27/17 10:35 02/27/17 10:35 02/27/17 10:35 02/27/17 10:35 General appearance: Present: cooperative, A&O X 3, no acute distress, answers questions appropriately - Head Head exam: Present: atraumatic, normocephalic - Eye Eye exam: Present: normal appearance, sclera anicteric - ENT ENT exam: Present: mucous membranes moist - Neck Neck exam general surgery: Present: normal inspection, trachea midline - Respiratory Respiratory exam: Present: CTAB - Cardiovascular Cardiovascular exam: Present: RRR, +S1, +S2 - GI/Abdominal GI/Abdominal exam: Present: normal bowel sounds, soft, no peritoneal signs - Rectal Rectal exam: Present: deferred - Extremities Exam Extremities exam: Present: warm - Neurological Exam Neurological exam: Present: no focal deficits - Psychiatric Psychiatric exam: Present: normal affect, normal mood - Skin Skin exam: Present: dry, intact, normal color, warm Results - Labs CBC & Chem 7: 02/27/17 04:08 02/27/17 04:08 Labs: Last Result Calcium 8.6 mg/dL (8.6-10.8) 02/27/17 04:08 Triglycerides 1307 mg/dL (< 150) H 02/26/17 04:29 Urine Opiates Screen Negative ng/mL (Fjcejh=341) 02/25/17 10:39 Entire Visit Hgb 11.9 g/dL (12.9-16.9) L 02/27/17 04:08 Hct 37.3 % (37.5-50.1) L 02/27/17 04:08 PT 13.1 Seconds (9.4-12.1) H 02/27/17 04:08 Total Bilirubin 0.4 mg/dL (0.2-1.2) 02/27/17 04:08 AST 12 Units/L (5-34) 02/27/17 04:08 ALT 13 Units/L (0-55) 02/27/17 04:08 Amylase 77 Units/L (25-125) 02/25/17 11:58 Lipase 70 Units/L (8-78) 02/26/17 11:27 - ABG ABG results: PT/INR, D-dimer PT 13.1 Seconds (9.4-12.1) H 02/27/17 04:08 - Impressions Impressions Gallbladder Ultrasound 02/26/17 14:00 IMPRESSION: 1. Cholelithiasis without evidence of cholecystitis. 2. Nonspecific mild dilation of the common bile duct to 8 mm. No intrahepatic biliary dilation is seen. 3. Hepatic steatosis. 4. Large multiloculated cyst arising from the right kidney. D/ / 02/26/2017 15:46:07 Connor Yoo MD / bernabe Interpreting Provider: Connor Yoo MD Consult Discharge Plan - Plan Instructions: Pancreatitis (DC) Additional Instructions: Gastroenterology follow-up. Follow-up with general surgery. Follow-up with primary care physician. Referrals: Elda Escalante MD [Partnered Physician] - 03/13/17 1:50 pm Linda Swift CNP [Advanced Practice Nurse] - (WEB REQUEST - OFFICE WILL CALL WITH APPOINTMENT) Dennise Baer CNP [Advanced Practice Nurse] - 04/04/17 8:15 am Prescriptions: Insulin NPH Hum/Reg Insulin Hm [Novolin 70-30 100 Unit/ml Vial] 18 unit SQ BID 14 Days <Jyothi Ballard - Last Filed: 02/27/17 17:09> Date of Encounter: 02/27/17 - Time Spent With Patient Total time spent is greater than 50% in coordination of care (as documented) at patient's floor/unit and/or counseling patient: GI History of Present Illness - Data of Consult Requesting Physician: Kwesi Elmore - Consult Narrative History of present illness: Mr. Dominguez is a 31 year old male - Constitutional Vitals: Temp Pulse Resp BP Pulse Ox 98.4 F 87 18 123/81 97 02/27/17 13:52 02/27/17 13:52 02/27/17 13:52 02/27/17 13:52 02/27/17 13:52 Results - Labs CBC & Chem 7: 02/27/17 04:08 02/27/17 04:08 Labs: Last Result Calcium 8.6 mg/dL (8.6-10.8) 02/27/17 04:08 Triglycerides 1307 mg/dL (< 150) H 02/26/17 04:29 Urine Opiates Screen Negative ng/mL (Idlubp=824) 02/25/17 10:39 Entire Visit Hgb 11.9 g/dL (12.9-16.9) L 02/27/17 04:08 Hct 37.3 % (37.5-50.1) L 02/27/17 04:08 PT 13.1 Seconds (9.4-12.1) H 02/27/17 04:08 Total Bilirubin 0.4 mg/dL (0.2-1.2) 02/27/17 04:08 AST 12 Units/L (5-34) 02/27/17 04:08 ALT 13 Units/L (0-55) 02/27/17 04:08 Amylase 77 Units/L (25-125) 02/25/17 11:58 Lipase 70 Units/L (8-78) 02/26/17 11:27 - ABG ABG results: PT/INR, D-dimer PT 13.1 Seconds (9.4-12.1) H 02/27/17 04:08 - Impressions Impressions Gallbladder Ultrasound 02/26/17 14:00 IMPRESSION: 1. Cholelithiasis without evidence of cholecystitis. 2. Nonspecific mild dilation of the common bile duct to 8 mm. No intrahepatic biliary dilation is seen. 3. Hepatic steatosis. 4. Large multiloculated cyst arising from the right kidney. D/ / 02/26/2017 15:46:07 Connor Yoo MD / bernabe Interpreting Provider: Connor Yoo MD Abdomen MRI 02/27/17 12:18 IMPRESSION: Significant cyst formation seen within the right kidney likely secondary to chronic UPJ obstruction. No evidence for stones seen within the gallbladder and no evidence for stones seen within the common bile duct. Please note however this examination is somewhat limited. Extrarenal pelvis on the left. Stranding and fluid seen around the body and tail of the pancreas likely secondary to pancreatitis. D/ / 02/27/2017 14:03:22 Nasir Baer MD / bernabe Interpreting Provider: Nasir Baer MD - Attending Attestation I examined this patient and my medical decision-making was reviewed with the CLIENT EXECUTIVE/PA/Advanced Practice Nurse/Resident Physician. I agree with the documented findings, disposition and treatment plan as described except to the extent set forth below.
[2017-02-27] MEDS ORDERED: 0.9 % Sodium Chloride 1,000 ML IVC SCH (13:00)
[2017-02-27] MEDS ORDERED: Insulin LISPRO 300 UNITS/3 ML VIAL SQ SCH (13:00)
[2017-02-27 13:54] VITALS: BP 123/81
--- NOTE | 2017-02-27 14:38 | Discharge Summary ---
Date of Encounter: 02/27/17 Time of Encounter: 14:35 - Discharge Diagnosis (1) Pancreatitis Priority: Primary Status: Acute Qualifiers: Chronicity: acute Pancreatitis type: other Acute pancreatitis complication: unspecified Qualified Code(s): K85.80 - Other acute pancreatitis without necrosis or infection (2) Cholelithiasis Priority: Secondary Status: Acute Qualifiers: Cholelithiasis location: gallbladder Cholecystitis presence: without cholecystitis Biliary obstruction: without biliary obstruction Qualified Code(s): K80.20 - Calculus of gallbladder without cholecystitis without obstruction (3) DVT prophylaxis Priority: Secondary Status: Acute (4) Diabetes Priority: Secondary Status: Acute Qualifiers: Diabetes mellitus type: type 2 Diabetes mellitus complication status: with kidney complications Diabetes mellitus complication detail: with chronic kidney disease Diabetes mellitus intermission coordinator insulin use: without intermission coordinator use Chronic kidney disease stage: unspecified stage Qualified Code(s): E11.22 - Type 2 diabetes mellitus with diabetic chronic kidney disease (5) GERD (gastroesophageal reflux disease) Priority: Secondary Status: Acute Qualifiers: Esophagitis presence: esophagitis presence not specified Qualified Code(s) : K21.9 - Gastro-esophageal reflux disease without esophagitis (6) HTN (hypertension) Priority: Secondary Status: Acute Qualifiers: Hypertension type: unspecified secondary hypertension Qualified Code(s): I15.9 - Secondary hypertension, unspecified; I15 - Secondary hypertension (7) Hypertriglyceridemia Priority: Secondary Status: Acute (8) UPJ (ureteropelvic junction) obstruction Priority: Secondary Status: Chronic - Discharge Medications Prescriptions: Insulin NPH Hum/Reg Insulin Hm [Novolin 70-30 100 Unit/ml Vial] 18 unit SQ BID 14 Days Home Medications: BuPROPion XL (24 HR) [Wellbutrin Xl] 150 mg PO BID 11/24/15 [History] Enalapril Maleate [Vasotec] 20 mg PO DAILY 11/24/15 [History] metFORMIN [Glucophage] 1,000 mg PO BIDWM 11/24/15 [History] Buspirone HCl [Buspar] 10 mg PO TID 02/25/17 [History] Dicyclomine [Bentyl] 10 mg PO QID 02/25/17 [History] Escitalopram [Lexapro] 20 mg PO DAILY 02/25/17 [History] Gemfibrozil [Lopid] 600 mg PO BIDWM 02/25/17 [History] Glimepiride [Amaryl] 2 mg PO DAILY 02/25/17 [History] Insulin NPH Hum/Reg Insulin Hm [Novolin 70-30 100 Unit/ml Vial] 18 unit SQ BID 14 Days 02/27/17 [Rx] Allergies/Adverse Reactions: Allergies prednisolone Allergy (Verified 07/07/16 12:00) Rash, Shortness of Breath Procedures/tests Complete & Pending: Procedures Performed prior 72 hours Category Date Time Status GB ultrasound [US gall bladder] [US] Stat Exams 02/26/17 14:00 Completed MRCP [MR abdomen wo con] [MR] Stat MRI 02/27/17 12:18 Draft Date of admission: 02/25/17 16:21 Primary care physician: Marta Augustine Consults: 02/25/17 16:41 Consult to Urology [CONS] Stat Consulting Provider: Urology [place] Reason for Consult: Hydronephrosis Call Completed: Yes 02/26/17 12:00 Consult to Gastroenterology [CONS] Routine Consulting Provider: Gastroenterology [place] Reason for Consult: Acute pancreatitis first episode Call Completed: No Discharging clinician: Kwesi Elmore Anticipated date of discharge: 02/27/17 - Patient Status Disposition: Home, Self-Care Condition: Serious Functional capacity at discharge: independent ambulation Overall status at discharge: patient is back to baseline - Discharge Instructions Follow Up With: Marta Augustine [Primary Care Provider] - Additional Instructions: Gastroenterology follow-up. Follow-up with general surgery. Follow-up with primary care physician. - Diet and Activity Activity: increase activity as tolerated Diet: low fat, low cholesterol Interval History: Mr. Dominguez is a 31 year old male presents from the ED with chief complaint of abdominal pain, nausea, vomiting, heartburn, and dark stools which he reports began on Saturday morning and has become progressively worse. He states he had similar symptoms a year ago that were not as bad as these he has now. Patient reports he had a fever of 99.9, chills, SOB, and aches/pains which felt similar to the flu for the past two days. Patient denies diarrhea, but states his last two bowel movements have been formed but black. Mr. Dominguez states that the pain is now radiating to his left upper quadrant. Patient has a history of nephrolithiasis in left kidney. Patient reports his right kidney is non- functional and atrophied since he was a child. Patient denies chest pain, dizziness, lightheadedness, weakness, dysuria, hematurai, pre-syncope, or syncopal episodes. Mr. Dominguez has a history of diabetes, GERD, hyperlipidiemia , UPJ obstruction of left kidney, gout, anxiety, depression, and PTSD. Patient is to be admitted as inpatient with consults to surgery and urology placed. Patient reports Drs. Coronel & Richard saw him a year ago for UPJ obstruction. CT scan with contrast shows pancreatitis with reactive colitis versus the less likely possibility of jejunal perforation. Patient is to be placed NPO now with IV vancomycin (pharmacy dosed) and Zosyn for infection coverage. Patient to also be placed on continuous telemetry, low-dose insulin correction dosing, and IV fluids. Patient to be monitored closely for pain and increasing signs of infection. Follow-up labs ordered. Hospital course: Mr. Dominguez is a 31 year old male admitted due to abdominal pain, found to have acute pancreatitis. Triglyredies level was over 1300. Additionally he was found to have cholelithiasis, however this does not seem to be the etiology of his pancreatitis. He had some mild CBD dilation in his right upper quadrant ultrasound, however in the MRCP this was not noted. The patient had initial leukocytosis, which improved after worse. The antibiotics were stopped, the patient tolerated diet, was afebrile. Pain has resolved. We will continue with outpatient follow-ups with both gastroenterology and surgery. His hemoglobin A1c was above 10, the patient was not on any insulin therapy at home. We will continue with insulin therapy upon discharge. Unfortunately, the patient does not have health insurance. We provided with prescriptions for insulin, the patient will continue with gentle for his hypertriglyceridemia. A follow-up with surgery was recommended and the patient was found to have cholelithiasis. There was no evidence of cholecystitis. Plan of care was discussed in detail with the patient and his , they both expressed understanding. Fish oil supplements were recommended as well. - Time Spent with Patient Total time spent providing and/or coordinating discharge services: - Constitutional Vitals: Temp Pulse Resp BP Pulse Ox 98.4 F 87 18 123/81 97 02/27/17 13:52 02/27/17 13:52 02/27/17 13:52 02/27/17 13:52 02/27/17 13:52 General appearance: Present: cooperative, mild distress, A&O X 3, morbidly obese , pleasant, answers questions appropriately - Head Head exam: Present: atraumatic, normocephalic - Eye Eye exam: Present: PERRL, conjuntiva pink, sclera anicteric Pupils: Present: PERRL - Neck Neck exam general surgery: Present: supple, trachea midline. Absent: lymphadenopathy - Respiratory Respiratory exam: Present: CTAB. Absent: accessory muscle use, rales, rhonchi, wheezes - Cardiovascular Cardiovascular exam: Present: RRR, +S1, +S2. Absent: diastolic murmur, gallop, rubs, systolic murmur - GI/Abdominal GI/Abdominal exam: Present: normal bowel sounds, soft, no peritoneal signs. Absent: distended, tenderness - Extremities Exam Extremities exam: Present: warm, radial pulses palpable and symetrical. Absent : calf tenderness, cyanotic, pedal edema - Neurological Exam Neurological exam: Present: CN II-XII intact, oriented X3, no focal deficits. Absent: pronater drift, facial droop, speech deficit - Skin Skin exam: Present: dry, intact - VTE Documentation of Mechanical Device: Graduated compression elastic hosiery
== END 2017-02-27 16:00 | disposition home or self-care (01) | DRG 439 ==
LOC: EMEROO 10:23 → 3ANU 10:23 → SUATTDRO 16:21 → 3ANU 16:47
PROVIDERS: ADMIT Hospitalist; ATTEND Internal Medicine

== ENCOUNTER 2018-05-05 10:28 | Inpatient (IN) ==
[2018-05-05] MEDS ORDERED: Ondansetron 4 MG/2 ML VIAL IVP ONE (10:54)
[2018-05-05] MEDS ORDERED: *HR* Nalbuphine 10 MG/ML AMPUL IVP ONE ×2 (10:54→13:25)
--- NOTE | 2018-05-05 10:58 | Emergency Department Note ---
Disposition Clinical Impression: Hydronephrosis Qualifiers: Hydronephrosis type: unspecified Qualified Code(s): N13.30 - Unspecified hydronephrosis Pancreatitis Qualifiers: Pancreatitis type: unspecified pancreatitis type Disposition: Admitted As Inpatient Condition: Good Referrals: Dennise Baer CNP [Primary Care Provider] - Forms: ED Satisfaction Letter, Work/School Release Time of Disposition: 14:09 Abdominal Pain HPI - General Chief Complaint: ED Abdominal Pain Stated Complaint: "R low back/Kidney pain" Time Seen by Provider: 05/05/18 10:37 Source: patient Mode of arrival: ambulatory Limitations: no limitations Nursing Notes Reviewed: Yes Vital Signs Reviewed: Yes - History of Present Illness HPI Narrative: 32-year-old male presents emergency room for abdominal pain and back pain. Patient has history of right-sided hydronephrosis. 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 Patient started developing increasing pain a few weeks ago, seen in the ER at that time. The hydronephrosis was so severe that it was up pushing up against the pancreas causing some pancreatitis. There had been talked about placing a right-sided nephrostomy tube. He states the pain got worse on Saturday morning is been associated with vomiting. Complaining of diffuse pain throughout the abdomen as well as the right flank. He has been taking hydrocodone without much relief. No other complaints at this time. Pain Scale: 9 - Related Data Home Medications Medication Instructions Recorded Confirmed BuPROPion XL (24 HR) [Wellbutrin 150 mg PO BID 11/24/15 02/25/17 Xl] Enalapril Maleate [Vasotec] 20 mg PO DAILY 11/24/15 02/25/17 Buspirone HCl [Buspar] 10 mg PO TID 02/25/17 02/25/17 Dicyclomine [Bentyl] 10 mg PO QID 02/25/17 02/25/17 Escitalopram [Lexapro] 20 mg PO DAILY 02/25/17 02/25/17 Gemfibrozil [Lopid] 600 mg PO BIDWM 02/25/17 02/25/17 Glimepiride [Amaryl] 2 mg PO DAILY 02/25/17 02/25/17 Previous Rx's Medication Instructions Recorded Amoxicillin/Clavulanate [Augmentin] 875 mg PO BIDWM #20 tablet 08/29/17 GuaiFENesin ER [Mucinex] 1,200 mg PO BID #20 tbbp.12hr 08/29/17 Loratadine/Pseudophed (12 HR) 1 each PO BID #20 tab.er.12h 08/29/17 [Claritin D (12HR)] HYDROcodone/Acet 5/325 mg [[place] 1 tab PO Q4H PRN 2 Days #12 tab 04/19/18 5-325 mg] Hydrocortisone 1% CREAM [Cortaid] 28 gm TP BID #1 bottle 04/19/18 Capsaicin [High Potency Capsaicin] 42.5 gm TP TID PRN #1 cream..g. 04/28/18 Allergies Allergy/AdvReac Type Severity Reaction Status Date / Time prednisolone Allergy Rash, Verified 04/28/18 12:42 Shortness of Breath All systems ED: reviewed and negative except as stated. Constitutional: Reports: as per HPI, chills Eyes: Reports: as per HPI ENT ED: Reports: as per HPI Cardiovascular: Reports: as per HPI Respiratory: Reports: as per HPI Gastrointestinal: Reports: abdominal pain, nausea, vomiting Genitourinary: Reports: as per HPI Musculoskeletal: Reports: as per HPI, back pain Integumentary: Reports: as per HPI Neurological: Reports: as per HPI Psychiatric: Reports: as per HPI Endocrine: Reports: as per HPI Hematological/Lymphatic: Reports: as per HPI Allergic/Immunologic: Reports: as per HPI Abdominal Pain PMH - Past Medical History Medical history: Reports: non-contributory Male Surgical History: Reports: Tonsillectomy, other Psychiatric history: Reports: anxiety, depression, PTSD - Social History Smoking status: Never smoker Alcohol use: Reports: none Drug use: Reports: none Physical Exam - General Limitations: no limitations General appearance: alert, in no apparent distress - Head Head exam: atraumatic, normocephalic - Eye Eye exam: Present: normal appearance - ENT ENT exam: normal exam, normal oropharynx - Neck Neck exam: Present: normal inspection - Chest Chest inspection: Present: normal inspection, symmetric chest wall rise - Respiratory Respiratory exam: Present: normal lung sounds bilaterally - Cardiovascular Cardiovascular exam: Present: normal rhythm, tachycardia - Abdominal Exam Abdominal exam: Present: soft, tenderness (+PTP to entire mid abdomen and right flank), guarding - Expanded Lower Extremity Exam Hip/Pelvis exam: Present: normal inspection - Back Exam Back exam: Present: normal inspection - Neurological Exam Neurological exam: Present: alert, oriented X3 - Psychiatric Psychiatric exam: Present: normal affect, normal mood - Skin Skin exam: Present: warm, dry, intact Course Vital Signs Temperature 98.3 F 05/05/18 10:30 Pulse Rate 129 05/05/18 10:30 Respiratory Rate 18 05/05/18 10:30 Blood Pressure 116/76 05/05/18 10:30 O2 Sat by Pulse Oximetry 95 05/05/18 10:30 Temperature 99.2 F 05/05/18 13:23 Pulse Rate 16 05/05/18 13:23 Respiratory Rate 16 05/05/18 13:23 Blood Pressure 144/98 05/05/18 13:23 O2 Sat by Pulse Oximetry 96 05/05/18 13:23 Oxygen Delivery Oxygen Delivery Room Air Abdominal Pain - MDM Narrative Medical decision making narrative: I did a repeat CT scan abdomen and pelvis which showed severe right-sided hydronephrosis with some mild left hydronephrosis as well. Recent swelling assessing significant minutes now pushing up against the pancreas causing increasing pain in his mid abdomen as well as his back. He remains tachycardic despite pain control and he remains afebrile. We will give him some IV fluids. I have consult and with urology, Dr. Ramos. We will admit the patient to the hospitalist. We will consult with interventional radiology to place a right nephrostomy tube. I also spoke with the hospitalist who accepted the patient to their service. Consults have been put in. His lipase is normal on his labs however on imaging he appears to have severe pancreatitis from this right kidney issue. critical care time of 35 minutes spent in medical management of severe hydronephrosis and consultation with Urology and IR. - Medical Records Medical records reviewed: Yes I reviewed the patient's medical records. - Lab Data Lab results reviewed: Yes I reviewed the patient's lab results. Result diagrams: 05/05/18 11:02 05/05/18 12:19 Lab Results 05/05/18 05/05/18 05/05/18 Range/Units 11:02 11:54 12:19 WBC 10.4 (4.3-11.1) K/mcL RBC 6.30 H (4.19-5.50) M/mcL Hgb 17.3 H (12.9-16.9) g/dL Hct 48.6 (37.5-50.1) % MCV 77.1 L (83.0-100.0) fL MCH 27.5 L (28.0-33.3) pg MCHC 35.6 H (31.6-35.5) g/dL RDW 14.3 (11.5-14.5) % Plt Count 231 (140-400) K/mcL MPV 10.9 (9.4-12.4) fL Immature Gran % 0.7 (0-4) % Seg Neutrophils % 82.5 % Lymphocytes % 7.7 % Monocytes % 7.4 % Eosinophils % 1.4 % Basophils % 0.3 % Neutrophils # 8.6 (1.6-8.9) K/mcL Lymphocytes # 0.8 (0.6-4.6) K/mcL Monocytes # 0.8 (0.0-1.3) K/mcL Eosinophils # 0.2 (0.0-0.6) K/mcL Basophils # 0.0 (0.0-0.2) K/mcL Sodium 124 L (136-145) mEq/L Potassium 4.3 (3.5-5.1) mEq/L Chloride 90 L (98-107) mEq/L Carbon Dioxide 24 (23-29) mEq/L BUN 15 (6-20) mg/dL Creatinine 1.12 (0.70-1.30) mg/dL Est GFR ( Amer) > 60 (> 60) Est GFR (Non-Af Amer) > 60 (> 60) BUN/Creatinine Ratio 13 (6-26) Glucose 475 H (70-105) mg/dL Calculated Osmolality 280 (280-300) Calcium 8.0 L (8.6-10.3) mg/dL Total Bilirubin 0.7 (0.3-1.0) mg/dL Direct Bilirubin 0.1 (0.0-0.2) mg/dL Indirect Bilirubin 0.6 (0.0-1.2) mg/dL AST 15 (13-39) Units/L ALT 6 L (7-52) Units/L Alkaline Phosphatase 55 (34-104) Units/L Serum Total Protein 7.1 (6.4-8.9) g/dL Albumin 3.2 L (3.5-5.7) g/dL Globulin 3.9 H (2.4-3.5) g/dL Albumin/Globulin Ratio 0.8 L (1.1-2.2) Lipase 78 (11-82) Units/L Specimen Rejected Hemolyzed - Radiology Data Radiology results reviewed: Yes I reviewed the patient's radiology results. Critical Care Time Critical Care Time: Yes Total Critical Care Time: 35 Attestation: time spent in med management of severe hydronephrosis and consultation with IR and Urology
[2018-05-05 11:24] LABS: Basophils % 0.3 %; Eosinophils # 0.2 K/mcL (0.0-0.6); Eosinophils % 1.4 %; Hematocrit 48.6 % (37.5-50.1); Hemoglobin 17.3 g/dL (12.9-16.9); Immature Granulocytes % 0.7 % (0-4); Lymphocytes # 0.8 K/mcL (0.6-4.6); Lymphocytes % 7.7 %; Mean Corpuscular HGB Conc 35.6 g/dL (31.6-35.5); Mean Corpuscular Hemoglobin 27.5 pg (28.0-33.3); Mean Corpuscular Volume 77.1 fL (83.0-100.0); Mean Platelet Volume 10.9 fL (9.4-12.4); Monocytes # 0.8 K/mcL (0.0-1.3); Monocytes % 7.4 %; Neutrophils # 8.6 K/mcL (1.6-8.9); Platelet Count 231 K/mcL (140-400); Red Cell Distribution Width 14.3 % (11.5-14.5); Segmented Neutrophils % 82.5 %
[2018-05-05 13:12] LABS: Alanine Aminotransferase 6 Units/L (7-52); Albumin 3.2 g/dL (3.5-5.7); Albumin/Globulin Ratio 0.8 (1.1-2.2); Alkaline Phosphatase 55 Units/L (34-104); Aspartate Amino Transferase 15 Units/L (13-39); BUN/Creatinine Ratio 13 (6-26); Bilirubin,Direct 0.1 mg/dL (0.0-0.2); Bilirubin,Indirect 0.6 mg/dL (0.0-1.2); Bilirubin,Total 0.7 mg/dL (0.3-1.0); Blood Urea Nitrogen 15 mg/dL (6-20); Carbon Dioxide 24 mEq/L (23-29); Chloride 90 mEq/L (98-107); Globulin 3.9 g/dL (2.4-3.5); Glucose 475 mg/dL (70-105); Lipase 78 Units/L (11-82); Osmolality,Calculated 280 (280-300); Potassium 4.3 mEq/L (3.5-5.1); Sodium 124 mEq/L (136-145); Total Protein 7.1 g/dL (6.4-8.9); eGFR For Non-African Americans > 60 (> 60)
[2018-05-05] MEDS ORDERED: 0.9 % Sodium Chloride 1,000 ML IVC ONE (14:02)
[2018-05-05] MEDS ORDERED: Insulin Regular, Human 100 UNIT/ML SQ ONE (14:02)
[2018-05-05 14:14] LABS: INR 1.1; Prothrombin Time 12.8 Seconds (9.4-12.1)
[2018-05-05 14:17] LABS: Activated Partial Thrombo Time 33.2 Seconds (26.0-36.0)
[2018-05-05] MEDS ORDERED: *HR* FentaNYL (PF) 100 MCG/2 ML VIAL IVP ONE (14:49)
[2018-05-05] MEDS ORDERED: *HR* Midazolam HCl 2 MG/2 ML VIAL IVP ONE (14:49)
[2018-05-05] MEDS ORDERED: Ampicillin/Sulbactam 1,500 MG in 0.9 % Sodium Chloride Mini Bag 100 ML IVPB ONE (14:50)
--- NOTE | 2018-05-05 14:51 | Pre-Sedation Evaluation ---
Pre-sedation evaluation - Pre-sedation checklist Date of procedure: 05/05/18 Procedure: Right nephrostomy tube placement Recent Vitals: Last Vital Signs Temp 99.2 F 05/05/18 13:23 Pulse 16 05/05/18 13:23 Resp 16 05/05/18 13:23 BP 144/98 05/05/18 13:23 Pulse Ox 96 05/05/18 13:23 H&P (including ROS) documented in medical record: Yes Previous reaction to sedatives/anesthetics: No Dietary Status: NPO 6 hours prior to procedure Airway Assessment: Patient can open mouth completely, TMJ function normal Dentition: No loose teeth or bridges Possible difficult airway: No ASA Classification *see protocol: CLASS II-Mild systemic disease Plan of Care: Pt appropriate candidate for procedure/moderate/conscious sedation , Risks/benefits of procedure/sedation discussed w/ patient/family Cardiac Registry (Cardio Only) - Functional Capacity - Clincal Frailty Scale
[2018-05-05 15:11] LABS: Bilirubin,Urine Negative (Negative); Blood,Urine Trace (Negative); Clarity,Urine Clear (Clear); Color,Urine Yellow (Yellow); Glucose,Urine (UA) >=1000 mg/dL (Normal); Ketones,Urine Negative (Negative); Leukocyte Esterase,Urine Negative (Negative); Nitrite,Urine Negative (Negative); Protein,Urine >=300 mg/dL (Neg-Trace); Specific Gravity,Urine > 1.030 (1.010-1.025); Urobilinogen,Urine Normal (Normal)
[2018-05-05] MEDS ORDERED: 0.9 % Sodium Chloride 1,000 ML ONE (15:11)
[2018-05-05 15:13] LABS: Bacteria,Urine None Seen per hpf (None-Few); Hyaline Casts,Urine None Seen per lpf (None-Few); Squamous Epithelial Cell,Urine Moderate per lpf (None-Few); WBC,Urine 0-3 per hpf (0-3)
--- NOTE | 2018-05-05 15:31 | IR Procedure Note ---
Date of procedure: 05/05/18 Consent Obtained: Verbal consent, Written consent Timeout: Correct patient and procedure verified, Correct site verified, Time out performed, Skin prep completed Local anesthetic: Lidocaine 1% Indications: Right hydronephrosis Procedure Performed: Right nephrostomy tube placement Was there an physical therapy assistant present: No Site/Technique: Right nephrostomy tube placed Results/Findings: Severe right hydronephrosis Estimated blood loss (cc): 2 Complications: None; Tolerated procedure well Post Procedure Treatment Plan: Resume inpatient care Specimen: Severe hydronephrosis
[2018-05-05] MEDS ORDERED: *HR* OxyCODONE Immed Rel 5 MG TABLET PO PRN (16:27)
[2018-05-05] MEDS ORDERED: Naloxone 0.4 MG/ML INJ IVP PRN (16:27)
[2018-05-05] MEDS ORDERED: Acetaminophen 325 MG TABLET PO PRN (16:27)
[2018-05-05] MEDS ORDERED: *HR* Dextrose 50 % in Water (Syg) 50 ML SYRINGE IVP PRN (16:29)
[2018-05-05] MEDS ORDERED: Dextrose Gel 15 GM/37.5 ML TUBE PO PRN ×2 (16:29)
[2018-05-05] MEDS ORDERED: D5% in Water 1,000 ML IVC PRN (16:29)
--- NOTE | 2018-05-05 17:05 | Internal Med History&Physical ---
Date of Encounter: 05/05/18 Time of Encounter: 17:02 Internal Medicine - H&P: HPI Chief complaint: Abdominal and flank pain Admitted From: Emergency Dept Plans for Post Hospital Care: Home History of present illness: Mr. Dominguez is a 32 year old male with history of hypertension, diabetes, bilateral hydronephrosis and right renal atrophy, who presents with complaints of right-sided flank pain, worsening over the last 4 days. Patient presented to the emergency room with similar complaints about 2 weeks ago and was discharged home with outpatient urology follow-up. He currently reports moderate to severe aching right flank pain, radiating to abdomen and chest diffusely, associated with subjective fever, chills, nausea and vomiting, generalized weakness and fatigue. No urinary complaints or hematuria. No shortness of breath, palpitations, dizziness or syncope. Patient has history of left-sided pyeloplasty done for hydronephrosis and noted to have chronic significant right-sided hydronephrosis, causing pressure effects on pancreas and pancreatitis. He is scheduled for right-sided nephrectomy as an outpatient. Past Med Surg Social Fam HX - Past Medical History Source: patient Medical history: diabetes, GERD, hyperlipidemia, hypertension Additional medical history: Pancreatitis. Chronic right hydronephrosis Psychiatric history: anxiety, depression, PTSD - Past Surgical History Surgical History: orthopedic, other (left hand surgery), other (left pyeloplasty ) Additional surgical history: Left Kidney Surgery - Social History Smoking Status: Never smoker Smokeless Tobacco Status: No Alcohol use: none Drug use: none Occupational status: employed Current living situation: Home, With Family Activity Level: Independent ambulation Recent Out of Country Travel Within the Last 8 Weeks: No Exposure or Possible Exposure to Illness During Travel: No - Family History Mother Family Member Ethnicity: Non- Living Status: Still Living Hx Family Cardiac Disorders: Yes (HTN) Hx Family Endocrine Disorder: Yes (DM, Thyroid) Father Family Member Ethnicity: Non- Living Status: Still Living Hx Family Cardiac Disorders: Yes (Hyperlipidemia, HTN) Hx Family Endocrine Disorder: Yes (DM) Internal Medicine - H&P: Meds No Known Home Drugs 05/05/18 [History] 3 Allergy/AdvReac Type Severity Reaction Status Date / Time prednisolone Allergy Rash, Verified 04/28/18 12:42 Shortness of Breath All Systems PM: A 10-system review of systems was performed and is negative for pertinent findings except as documented above in the HPI. - Constitutional Constitutional: chills, fatigue, fever(s), weakness - EENT Eyes: no change in vision, no discharge, no pain, no photophobia Ears: no ear discharge, no ear pain, no tinnitus Nose, mouth and throat: no dysphagia, no nasal discharge, no neck pain, no sore throat - Cardiovascular Cardiovascular ROS IM: no chest pain, no diaphoresis, no dyspnea, no lightheadedness, no palpitations, no syncope - Respiratory Respiratory: no cough, no dyspnea, no wheezing, no excessive phlegm production - Gastrointestinal Gastrointestinal: abdominal pain, loose stools, nausea, vomiting - Musculoskeletal Musculoskeletal ROS IM: no numbness, no tingling - Integumentary Integumentary IM: no rash, no unusual bruising - Neurological Neurological ROS: no confusion, no convulsions, no focal weakness, no numbness, no tingling, no tremor(s) - Hematologic/Lymphatic Hematologic/Lymphatic: no easy bruising - Constitutional Vitals: Temp Pulse Resp BP Pulse Ox 97.9 F 125 16 131/80 95 05/05/18 16:00 05/05/18 16:00 05/05/18 16:00 05/05/18 16:00 05/05/18 16:00 General appearance: Present: A&O X 3, obese, answers questions appropriately Exam: . - Respiratory Respiratory exam: Present: CTAB. Absent: accessory muscle use, rales, rhonchi, wheezes - Cardiovascular Cardiovascular exam: Present: RRR, +S1, +S2, tachycardia. Absent: diastolic murmur, gallop, rubs, systolic murmur - GI/Abdominal GI/Abdominal exam: Present: normal bowel sounds, soft (obese, mild tenderness in LUQ), no peritoneal signs. Absent: distended, tenderness - Extremities Exam Extremities exam: Present: full ROM, warm, radial pulses palpable and symmetrical. Absent: calf tenderness, cyanotic, pedal edema - Back Exam Additional comments: no CVA tenderness; right nephrostomy tube noted with dark yellowish urine and specks of mucus - Neurological Exam Neurological exam: Present: CN II-XII intact, oriented X3, no focal deficits. Absent: pronater drift, facial droop, speech deficit - Skin Skin exam: Present: dry, intact Internal Med - H&P Results - Labs CBC & Chem 7: 05/05/18 11:02 05/05/18 12:19 - Assessment and plan (1) Hydronephrosis Current Visit: Yes Status: Acute Assessment and plan: CT abdomen/pelvis shows significant massive right-sided hydronephrosis, impinging on pancreatic head and duodenum. Interventional radiology was consulted, patient received right-sided nephrostomy tube. Urology has been consulted by ER physician, follow-up recommendations. Pain control with when necessary oxycodone. Patient has been planned for outpatient right-sided nephrectomy. Urinalysis shows proteinuria and glucosuria but no evidence of infection. Antibiotics deferred at this time. Qualifiers: Hydronephrosis type: with ureteropelvic junction obstruction Qualified Code (s): Q62.11 - Congenital occlusion of ureteropelvic junction (2) Pancreatitis Current Visit: Yes Status: Acute Assessment and plan: Likely related to right-sided hydronephrosis. Serum lipase noted to be normal. Monitor closely, start clear liquid diet and advance as tolerated. pain control and supportive care; Qualifiers: Chronicity: acute Pancreatitis type: unspecified pancreatitis type Acute pancreatitis complication: no infection or necrosis Qualified Code(s): K85.90 - Acute pancreatitis without necrosis or infection, unspecified (3) Diabetes Current Visit: Yes Status: Chronic Assessment and plan: Patient has no insurance and has not been any medications for the past year including diabetic medications. Noted to have hyperglycemia with random blood glucose of 475 in the emergency room. Start basal bolus insulin regimen, monitor blood sugars closely with Accu -Chek blood glucose monitoring. Diabetic diet. Check hemoglobin A1c. environmental services assistant consult. Qualifiers: Diabetes mellitus type: type 2 Diabetes mellitus middle or intermediate school principal insulin use: without middle or intermediate school principal use Diabetes mellitus complication status: with hyperglycemia Qualified Code(s): E11.65 - Type 2 diabetes mellitus with hyperglycemia (4) GERD (gastroesophageal reflux disease) Current Visit: Yes Status: Chronic Qualifiers: Esophagitis presence: esophagitis presence not specified Qualified Code(s) : K21.9 - Gastro-esophageal reflux disease without esophagitis (5) HTN (hypertension) Current Visit: Yes Status: Chronic Assessment and plan: Blood pressure acceptable. Will start low-dose JULIAN inhibitor. Monitor closely. Qualifiers: Hypertension type: unspecified secondary hypertension Qualified Code(s): I15.9 - Secondary hypertension, unspecified; I15 - Secondary hypertension (6) Hypertriglyceridemia Current Visit: Yes Status: Chronic Assessment and plan: Not on medications at this time. Check fasting lipid profile. (7) Hyponatremia Current Visit: Yes Status: Acute Assessment and plan: Measured serum sodium 124, after correction for hyperglycemia, serum sodium is at least 130. Continue IV hydration and monitor closely. (8) Tachycardia Current Visit: Yes Status: Acute Assessment and plan: likely sinus tachycardia; start Telemetry monitoring; IV hydration; likely related to anxiety and pain; - Time Spent With Patient Total time spent is greater than 50% in coordination of care (as documented) at patient's floor/unit and/or counseling patient:
[2018-05-05 19:29] LABS: Estimated Average Glucose 306 mg/dl; Hemoglobin A1C 12.3 %
[2018-05-05] MEDS ORDERED: Insulin LISPRO 300 UNITS/3 ML VIAL SQ ONE (19:38)
[2018-05-05] MEDS ORDERED: Ringers Solution, Lactated 1,000 ML ONE (19:38)
[2018-05-05] MEDS: Insulin DETEMIR 100 UNIT/ML X5UNITS SQ SCH (20:07)
[2018-05-05] MEDS: *HR* HYDROcodone/Acet 5/325 mg TABLET PO PRN (20:07)
[2018-05-05] MEDS: Ringers Solution, Lactated 1,000 ML IVC SCH (20:11)
[2018-05-05] MEDS: Insulin LISPRO 300 UNITS/3 ML VIAL SQ SCH (20:11)
[2018-05-05] MEDS ORDERED: Insulin LISPRO 300 UNITS/3 ML VIAL SQ SCH (21:00)
[2018-05-05] MEDS: *HR* Heparin 5,000 UNIT/ML VIAL SQ SCH (23:47)
[2018-05-06] MEDS ORDERED: Ringers Solution, Lactated 1,000 ML ONE (04:24)
[2018-05-06] MEDS: Ringers Solution, Lactated 1,000 ML IVC SCH (04:27)
[2018-05-06] MEDS ORDERED: Ondansetron 4 MG/2 ML VIAL ONE (05:41)
[2018-05-06] MEDS: *HR* HYDROcodone/Acet 5/325 mg TABLET PO PRN (06:05)
[2018-05-06] MEDS: Ondansetron 4 MG/2 ML VIAL IVP PRN ×2 (06:10→17:25)
[2018-05-06 06:30] LABS: Basophils % 0.3 %; Eosinophils # 0.2 K/mcL (0.0-0.6); Eosinophils % 2.7 %; Hematocrit 41.8 % (37.5-50.1); Immature Granulocytes % 0.4 % (0-4); Lymphocytes # 0.8 K/mcL (0.6-4.6); Lymphocytes % 10.9 %; Mean Corpuscular HGB Conc 33.5 g/dL (31.6-35.5); Mean Corpuscular Volume 77.7 fL (83.0-100.0); Mean Platelet Volume 10.5 fL (9.4-12.4); Monocytes # 0.8 K/mcL (0.0-1.3); Monocytes % 10.3 %; Neutrophils # 5.8 K/mcL (1.6-8.9); Platelet Count 182 K/mcL (140-400); Red Blood Count 5.38 M/mcL (4.19-5.50); Red Cell Distribution Width 14.6 % (11.5-14.5); Segmented Neutrophils % 75.4 %
--- NOTE | 2018-05-06 07:00 | Urology - Consult Note ---
Date of Encounter: 05/06/18 Time of Encounter: 06:58 - Assessment and Plan (1) Obstruction of left ureteropelvic junction (UPJ) Current Visit: Yes Status: Acute Assessment and plan: Status post repair. Patient's hydronephrosis on left side is chronic in nature and left kidney appears to be draining well. (2) Uncontrolled diabetes mellitus Current Visit: Yes Status: Acute Assessment and plan: I discussed the patient that tight blood sugar control is very important. He will need to get better control of his diabetes prior to his planned right nephrectomy later this month. Qualifiers: Diabetes mellitus type: type 2 Glycemic state: with hyperglycemia Qualified Code(s): E11.65 - Type 2 diabetes mellitus with hyperglycemia (3) Hydronephrosis Current Visit: Yes Status: Acute Assessment and plan: Patient's right hydronephrosis is now drained with a nephrostomy tube. Patient will need to keep this nephrostomy tube in place. We will continue to follow along while patient in hospital. Qualifiers: Hydronephrosis type: with ureteropelvic junction obstruction Qualified Code (s): Q62.11 - Congenital occlusion of ureteropelvic junction Urology CN:HPI Consult date: 05/06/18 Reason for consult Urology: Hydronephrosis Requesting physician: Nahed Noble History of present illness: Juan Carlos is a 32-year-old male well known to me secondary to undergoing left robotic pyeloplasty. Patient with well-known severely dilated right renal system. Patient was taken nephrectomy done in July 2017 but was unable to afford the surgery. Patient now presented back to my office earlier this month ready to schedule surgery. Patient presented to the emergency Department yesterday secondary to severe abdominal discomfort. Patient was taken to the interventional radiology and underwent a right percutaneous nephrostomy to drain the fluid within the right kidney. Patient feels better after this drainage. Patient has severely poorly controlled diabetes at this time. He states that he has been unable to afford his medication. No current nausea or vomiting. No fevers. The patient did have a low-grade fever. Past Med Surg Social Fam HX - Past Medical History Medical history: diabetes, GERD, hyperlipidemia, hypertension Additional medical history: Pancreatitis. Chronic right hydronephrosis Psychiatric history: anxiety, depression, PTSD - Past Surgical History Surgical History: orthopedic, other (left hand surgery), other (left pyeloplasty ) Additional surgical history: Left Kidney Surgery - Social History Smoking Status: Never smoker Smokeless Tobacco Status: No Alcohol use: none Drug use: none - Family History Mother Family Member Ethnicity: Non- Living Status: Still Living Hx Family Cardiac Disorders: Yes (HTN) Hx Family Endocrine Disorder: Yes (DM, Thyroid) Father Family Member Ethnicity: Non- Living Status: Still Living Hx Family Cardiac Disorders: Yes (Hyperlipidemia, HTN) Hx Family Endocrine Disorder: Yes (DM) Medications and Allergies No Known Home Drugs 05/05/18 [History] 3 Allergy/AdvReac Type Severity Reaction Status Date / Time prednisolone Allergy Rash, Verified 04/28/18 12:42 Shortness of Breath Review of Systems - Constitutional fever(s), no chills - Cardiovascular no chest pain - Respiratory no cough - Gastrointestinal abdominal pain, no nausea, no vomiting - Genitourinary no nocturia - Musculoskeletal back pain, no muscle weakness - Integumentary no erythema, no swelling - Psychiatric no anxiety, no depression - Hematologic/Lymphatic no easy bleeding, no lymphadenopathy - Allergic/Immunologic no wheezing Exam Initial Vital Signs Temp Pulse Resp BP Pulse Ox 98.3 F 129 18 116/76 95 05/05/18 10:30 05/05/18 10:30 05/05/18 10:30 05/05/18 10:30 05/05/18 10:30 General/Neuological: alert and oriented x 3 Eyes: normal pupils, non-icteric Neck: no lymphadenopathy noted, supple to touch Cardiovascular: RRR, no murmurs, no JVD Respiratory: normal respiratory effort, clear bilaterally ABD: soft, nontender, no masses palpated, good bowel sounds Back: no pain on percussion bilaterally, right nephrostomy drainage draining clear urine/fluid Skin: no rashes noted Musculoskeletal: normal gait, FROMx4 Urology Results - Labs 05/06/18 05:58 05/05/18 12:19 Abnormal lab results MCV 77.7 fL (83.0-100.0) L 05/06/18 05:58 MCH 26.0 pg (28.0-33.3) L 05/06/18 05:58 RDW 14.6 % (11.5-14.5) H 05/06/18 05:58 PT 12.8 Seconds (9.4-12.1) H 05/05/18 14:01 Sodium 124 mEq/L (136-145) L 05/05/18 12:19 Chloride 90 mEq/L (98-107) L 05/05/18 12:19 Glucose 475 mg/dL (70-105) H 05/05/18 12:19 POC Glucose 372 mg/dL (70-99) H 05/05/18 19:56 Hemoglobin A1c 12.3 % (-5.6) H 05/05/18 17:52 Calcium 8.0 mg/dL (8.6-10.3) L 05/05/18 12:19 ALT 6 Units/L (7-52) L 05/05/18 12:19 Albumin 3.2 g/dL (3.5-5.7) L 05/05/18 12:19 Globulin 3.9 g/dL (2.4-3.5) H 05/05/18 12:19 Albumin/Globulin Ratio 0.8 (1.1-2.2) L 05/05/18 12:19 Ur Specific [place] > 1.030 (1.010-1.025) H 05/05/18 13:57 Urine Protein >=300 mg/dL (Neg-Trace) H 05/05/18 13:57 Urine Glucose (UA) >=1000 mg/dL (Normal) H 05/05/18 13:57 Urine Blood Trace (Negative) H 05/05/18 13:57 Urine Microscopic RBC 5-15 per hpf (0-3) H 05/05/18 13:57 Ur Squamous Epith Cells Moderate per lpf (None-Few) H 05/05/18 13:57 Diabetes panel 05/05/18 Range/Units 17:52 Hemoglobin A1c 12.3 H ( - 5.6) % All other labs normal. - Imaging CT scan - abdomen: image reviewed CT scan - pelvis: image reviewed Consult Discharge Plan - Plan Referrals: Dennise Baer, RICARDO [Primary Care Provider] -
[2018-05-06 07:35] LABS: BUN/Creatinine Ratio 13 (6-26); Blood Urea Nitrogen 12 mg/dL (6-20); Calcium 7.8 mg/dL (8.6-10.3); Carbon Dioxide 25 mEq/L (23-29); Chloride 94 mEq/L (98-107); Chol/HDL Ratio 38.3 (0-4.9); Cholesterol 383 mg/dL (< 200); Glucose 345 mg/dL (70-105); HDL Cholesterol 10 mg/dL (40-59); Osmolality,Calculated 277 (280-300); Potassium 4.4 mEq/L (3.5-5.1); Sodium 127 mEq/L (136-145); Triglycerides 1781 mg/dL (< 150); eGFR For Non-African Americans > 60 (> 60)
[2018-05-06] MEDS: *HR* Heparin 5,000 UNIT/ML VIAL SQ SCH ×2 (08:35→15:42)
[2018-05-06] MEDS: Insulin LISPRO 300 UNITS/3 ML VIAL SQ SCH (08:36)
[2018-05-06] MEDS: Insulin DETEMIR 100 UNIT/ML X5UNITS SQ SCH (08:38)
--- NOTE | 2018-05-06 09:56 | Internal Med Progress Note ---
Hospitalist Progress Note - Encounter Date of Encounter: 05/06/18 Time of Encounter: 10:25 - Subjective Interval History: Seen and examined at bedside. Patient is new to me, information obtained from chart review and patient report. Still has some mild abdominal pain but overall improved. He would like to advance diet and see how he does. Discussed case with Dr. Nabil Castañeda and a chetna the pharmacist and given his triglycerides of almost 1800 and with acute pancreatitis will initiate heparin drip. Patient updated in agreeable to plan. - Exam Vitals: Temp Pulse Resp BP Pulse Ox 98.3 F 100 16 124/72 97 05/06/18 08:17 05/06/18 08:17 05/06/18 08:17 05/06/18 08:17 05/06/18 08:17 Exam: General appearance: Present: A&O X 3, obese, answers questions appropriately Exam: . - Respiratory Respiratory exam: Present: CTAB. Absent: accessory muscle use, rales, rhonchi, wheezes - Cardiovascular Cardiovascular exam: Present: RRR, +S1, +S2, tachycardia. Absent: diastolic murmur, gallop, rubs, systolic murmur - GI/Abdominal GI/Abdominal exam: Present: normal bowel sounds, soft (obese, mild tenderness in LUQ), no peritoneal signs. Absent: distended, tenderness - Extremities Exam Extremities exam: Present: full ROM, warm, radial pulses palpable and symmetrical. Absent: calf tenderness, cyanotic, pedal edema - Back Exam Additional comments: no CVA tenderness; right nephrostomy tube noted with pink urine with mucus - Neurological Exam Neurological exam: Present: CN II-XII intact, oriented X3, no focal deficits. Absent: pronater drift, facial droop, speech deficit - Skin Skin exam: Present: dry, intact - Assessment and Plan (1) Hydronephrosis Current Visit: Yes Status: Acute Assessment and Plan: CT abdomen/pelvis showed significant massive right-sided hydronephrosis, impinging on pancreatic head and duodenum. IR consult did in ED and right nephrostomy tube placed. UA showed proteinuria and glucosuria but without evidence of infection, ATB deferred at this time. Will need to leave nephrostomy tube in place. Urology following. (2) Pancreatitis Current Visit: Yes Status: Acute Assessment and Plan: ABD CT showed pancreatitis, worsened to prior study. Likely secondary to right- sided hydronephrosis and triglyceridemia; lipase normal. Tolerating full liquid diet on 05/06 exam; will increase to regular diet per patient request. If ABV pain returns or worsens with regular diet will need to go back to clear liquids. (3) Diabetes Current Visit: Yes Status: Chronic Assessment and Plan: per hx. Uncontrolled due to medication noncompliance; Hgb A1c 12.3%. Blood sugars uncontrolled; increase long-acting and increase SSI to high dose. Monitor blood sugar and titrate PRN. Social work consult for medication assistance as patient does not have insurance and has been without medication for over a year (4) HTN (hypertension) Current Visit: Yes Status: Chronic Assessment and Plan: per hx. BP controlled. Cont BP medication (5) Hypertriglyceridemia Current Visit: Yes Status: Chronic Assessment and Plan: Triglycerides 1700, LDL too numerous to count. Possibly contributing to pancreatitis. Conferred with Dr. Nabil Castañeda and pharmacy and will start insulin drip with serial BMPs. Repeat triglyceride level in the morning. (6) Hyponatremia Current Visit: Yes Status: Acute Assessment and Plan: Pseudohyponatremia secondary to hyperglycemia. Na 127; neurologically intact (7) Tachycardia Current Visit: Yes Status: Acute Assessment and Plan: sinus tachycardia; likely related to anxiety and pain; monitor on telemetry. Check echo. DVT Prophylaxis: heparin - Time Spent with Patient Total time spent is greater than 50% in coordination of care (as documented) at patient's floor/unit and/or counseling patient: Internal Medicine: Result - Labs CBC & Chem 7: 05/06/18 05:58 05/06/18 05:58 Labs: Short CBC 05/06/18 Range/Units 05:58 WBC 7.7 (4.3-11.1) K/mcL Hgb 14.0 D (12.9-16.9) g/dL Hct 41.8 (37.5-50.1) % Plt Count 182 (140-400) K/mcL Neutrophils # 5.8 (1.6-8.9) K/mcL BMP 05/06/18 05:58 Sodium 127 L Potassium 4.4 Chloride 94 L Carbon Dioxide 25 BUN 12 Creatinine 0.92 Glucose 345 H Calcium 7.8 L Cardiac Enzymes 05/05/18 05/05/18 05/06/18 Range/Units 17:52 23:46 05:58 Troponin I < 0.03 < 0.03 < 0.03 (< 0.04) ng/mL - ABG Interpretation ABG results: PT/INR, D-dimer PT 12.8 Seconds (9.4-12.1) H 05/05/18 14:01 Consult Discharge Plan - Plan Referrals: Dennise Baer, [facility] [Primary Care Provider] - (1) Hydronephrosis Qualifiers: Hydronephrosis type: with ureteropelvic junction obstruction Qualified Code(s ): Q62.11 - Congenital occlusion of ureteropelvic junction (2) Pancreatitis Qualifiers: Chronicity: acute Pancreatitis type: unspecified pancreatitis type Acute pancreatitis complication: no infection or necrosis Qualified Code(s): K85.90 - Acute pancreatitis without necrosis or infection, unspecified (3) Diabetes Qualifiers: Diabetes mellitus type: type 2 Diabetes mellitus longterm insulin use: without rodent exterminator use Diabetes mellitus complication status: with hyperglycemia Qualified Code(s): E11.65 - Type 2 diabetes mellitus with hyperglycemia (4) HTN (hypertension) Qualifiers: Hypertension type: unspecified secondary hypertension Qualified Code(s): I15.9 - Secondary hypertension, unspecified; I15 - Secondary hypertension
[2018-05-06] MEDS ORDERED: Insulin Human Regular 100 UNIT in 0.9 % Sodium Chloride 100 ML IVC SCH (10:30)
[2018-05-06] MEDS ORDERED: D5% in 0.45% NACL w KCl 20 MEQ/1,000 ML MLS IVC SCH ×2 (11:00→16:09)
[2018-05-06] MEDS ORDERED: Insulin LISPRO 300 UNITS/3 ML VIAL SQ SCH ×2 (11:30→21:00)
--- NOTE | 2018-05-06 16:11 | Event Note ---
Date of Encounter: 05/06/18 Time of Encounter: 16:10 Discussed insulin drip and IV fluids with pharmacy and goal is to maintain insulin drip at 0.1 unit per kilogram per hour without titration. We will likely need to adjust IV fluids as he becomes more hypoglycemic. Ideally would keep blood sugar around 200. Discussed with RN as well. Order placed to notify provider/hospitalists of blood sugar drops below 100
[2018-05-06 18:59] LABS: BUN/Creatinine Ratio 16 (6-26); Blood Urea Nitrogen 12 mg/dL (6-20); Calcium 8.5 mg/dL (8.6-10.3); Carbon Dioxide 25 mEq/L (23-29); Chloride 98 mEq/L (98-107); Glucose 197 mg/dL (70-105); Osmolality,Calculated 277 (280-300); Potassium 3.8 mEq/L (3.5-5.1); Sodium 131 mEq/L (136-145); Triglycerides 1667 mg/dL (< 150); eGFR For Non-African Americans > 60 (> 60)
[2018-05-06] MEDS ORDERED: Insulin DETEMIR 100 UNIT/ML X5UNITS SQ SCH (21:00)
[2018-05-06] MEDS: Insulin Human Regular 100 UNIT in 0.9 % Sodium Chloride 100 ML IVC SCH (21:11)
[2018-05-06] MEDS: D5% in 0.45% NACL w KCl 20 MEQ/1,000 ML MLS IVC SCH (22:20)
[2018-05-06 22:34] LABS: BUN/Creatinine Ratio 18 (6-26); Blood Urea Nitrogen 12 mg/dL (6-20); Calcium 8.2 mg/dL (8.6-10.3); Carbon Dioxide 24 mEq/L (23-29); Chloride 100 mEq/L (98-107); Glucose 169 mg/dL (70-105); Osmolality,Calculated 278 (280-300); Sodium 132 mEq/L (136-145); eGFR For Non-African Americans > 60 (> 60)
[2018-05-07] MEDS: *HR* Heparin 5,000 UNIT/ML VIAL SQ SCH ×2 (00:06→09:23)
[2018-05-07 02:36] LABS: Hematocrit 44.2 % (37.5-50.1); Hemoglobin 14.7 g/dL (12.9-16.9); Mean Corpuscular HGB Conc 33.3 g/dL (31.6-35.5); Mean Corpuscular Hemoglobin 26.6 pg (28.0-33.3); Mean Corpuscular Volume 80.1 fL (83.0-100.0); Mean Platelet Volume 10.5 fL (9.4-12.4); Platelet Count 206 K/mcL (140-400); Red Blood Count 5.52 M/mcL (4.19-5.50)
[2018-05-07 02:53] LABS: BUN/Creatinine Ratio 14 (6-26); Blood Urea Nitrogen 10 mg/dL (6-20); Calcium 8.4 mg/dL (8.6-10.3); Carbon Dioxide 25 mEq/L (23-29); Chloride 100 mEq/L (98-107); Glucose 145 mg/dL (70-105); Osmolality,Calculated 280 (280-300); Potassium 3.2 mEq/L (3.5-5.1); Sodium 134 mEq/L (136-145); eGFR For Non-African Americans > 60 (> 60)
[2018-05-07] MEDS: D5% in 0.45% NACL w KCl 20 MEQ/1,000 ML MLS IVC SCH (05:17)
--- NOTE | 2018-05-07 06:21 | Urology Progress Note ---
Date of Encounter: 05/07/18 Time of Encounter: 06:20 - Assessment and Plan (1) Obstruction of left ureteropelvic junction (UPJ) Current Visit: Yes Status: Acute Assessment and plan: Serum creatinine stable and left kidney draining well (2) Uncontrolled diabetes mellitus Current Visit: Yes Status: Acute Qualifiers: Diabetes mellitus type: type 2 Glycemic state: with hyperglycemia Qualified Code(s): E11.65 - Type 2 diabetes mellitus with hyperglycemia (3) Hydronephrosis Current Visit: Yes Status: Acute Assessment and plan: Patient to keep right nephrostomy tube in place. We will continue to follow along Qualifiers: Hydronephrosis type: with ureteropelvic junction obstruction Qualified Code (s): Q62.11 - Congenital occlusion of ureteropelvic junction Progress Note Narrative: Patient seen this morning. Patient feeling better. Still with some drainage from his right nephrostomy tube. Pain minimal Objective Initial Vital Signs Temp Pulse Resp BP Pulse Ox 98.3 F 129 18 116/76 95 05/05/18 10:30 05/05/18 10:30 05/05/18 10:30 05/05/18 10:30 05/05/18 10:30 - General physical appearance Present: well developed, well nourished - Abdomen Present: soft. Absent: tender - Genitourinary Present: other (Right nephrostomy tube draining clear fluid) - Labs 05/07/18 02:03 05/07/18 02:03 Diabetes panel 05/06/18 05/06/18 05/06/18 Range/Units 05:58 18:10 22:11 Sodium 127 L 131 L 132 L (136-145) mEq/L Potassium 4.4 3.8 4.0 (3.5-5.1) mEq/L Chloride 94 L 98 100 (98-107) mEq/L Carbon Dioxide 25 25 24 (23-29) mEq/L BUN 12 12 12 (6-20) mg/dL Creatinine 0.92 0.73 0.67 L (0.70-1.30) mg/dL Glucose 345 H 197 H 169 H (70-105) mg/dL Calcium 7.8 L 8.5 L 8.2 L (8.6-10.3) mg/dL Triglycerides 1781 H 1667 H Cancelled (< 150) mg/dL HDL Cholesterol 10 L (40-59) mg/dL 08/15/18 08/15/18 Range/Units 02:03 02:03 Sodium 134 L (136-145) mEq/L Potassium 3.2 L (3.5-5.1) mEq/L Chloride 100 (98-107) mEq/L Carbon Dioxide 25 (23-29) mEq/L BUN 10 (6-20) mg/dL Creatinine 0.69 L (0.70-1.30) mg/dL Glucose 145 H (70-105) mg/dL Calcium 8.4 L (8.6-10.3) mg/dL Triglycerides 1388 H (< 150) mg/dL HDL Cholesterol (40-59) mg/dL Calcium panel 05/06/18 05/06/18 05/06/18 Range/Units 05:58 18:10 22:11 Calcium 7.8 L 8.5 L 8.2 L (8.6-10.3) mg/dL 05/07/18 Range/Units 02:03 Calcium 8.4 L (8.6-10.3) mg/dL Pituitary panel 05/06/18 05/06/18 05/06/18 Range/Units 05:58 18:10 22:11 Sodium 127 L 131 L 132 L (136-145) mEq/L Potassium 4.4 3.8 4.0 (3.5-5.1) mEq/L Chloride 94 L 98 100 (98-107) mEq/L Carbon Dioxide 25 25 24 (23-29) mEq/L BUN 12 12 12 (6-20) mg/dL Creatinine 0.92 0.73 0.67 L (0.70-1.30) mg/dL Glucose 345 H 197 H 169 H (70-105) mg/dL Calcium 7.8 L 8.5 L 8.2 L (8.6-10.3) mg/dL 05/07/18 Range/Units 02:03 Sodium 134 L (136-145) mEq/L Potassium 3.2 L (3.5-5.1) mEq/L Chloride 100 (98-107) mEq/L Carbon Dioxide 25 (23-29) mEq/L BUN 10 (6-20) mg/dL Creatinine 0.69 L (0.70-1.30) mg/dL Glucose 145 H (70-105) mg/dL Calcium 8.4 L (8.6-10.3) mg/dL Adrenal panel 05/06/18 05/06/18 05/06/18 Range/Units 05:58 18:10 22:11 Sodium 127 L 131 L 132 L (136-145) mEq/L Potassium 4.4 3.8 4.0 (3.5-5.1) mEq/L Chloride 94 L 98 100 (98-107) mEq/L Carbon Dioxide 25 25 24 (23-29) mEq/L BUN 12 12 12 (6-20) mg/dL Creatinine 0.92 0.73 0.67 L (0.70-1.30) mg/dL Glucose 345 H 197 H 169 H (70-105) mg/dL Calcium 7.8 L 8.5 L 8.2 L (8.6-10.3) mg/dL 05/07/18 Range/Units 02:03 Sodium 134 L (136-145) mEq/L Potassium 3.2 L (3.5-5.1) mEq/L Chloride 100 (98-107) mEq/L Carbon Dioxide 25 (23-29) mEq/L BUN 10 (6-20) mg/dL Creatinine 0.69 L (0.70-1.30) mg/dL Glucose 145 H (70-105) mg/dL Calcium 8.4 L (8.6-10.3) mg/dL Consult Discharge Plan - Plan Referrals: Dennise Baer, RICARDO [Primary Care Provider] -
[2018-05-07] MEDS: Insulin Human Regular 100 UNIT in 0.9 % Sodium Chloride 100 ML IVC SCH (07:18)
--- NOTE | 2018-05-07 10:06 | Discharge Summary ---
- NOTES TO OUTPATIENT PROVIDER Notes to Outpatient Provider: Admitting routine hospital follow-up Orders not resulted at time of discharge: Pending orders Date of Encounter: 05/07/18 Time of Encounter: 10:00 - Discharge Diagnosis (1) Hydronephrosis Priority: Primary Status: Acute Assessment and Plan: CT abdomen/pelvis showed significant massive right-sided hydronephrosis, impinging on pancreatic head and duodenum. IR consult did in ED and right nephrostomy tube placed. UA showed proteinuria and glucosuria but without evidence of infection, ATB deferred. Will need to leave nephrostomy tube in place. Urology followed Qualifiers: Hydronephrosis type: with ureteropelvic junction obstruction Qualified Code (s): Q62.11 - Congenital occlusion of ureteropelvic junction (2) Pancreatitis Priority: Primary Status: Acute Assessment and Plan: ABD CT showed pancreatitis, worsened to prior study. Likely secondary to right- sided hydronephrosis and triglyceridemia; lipase normal. He was treated with insulin gtt with reduction in triglycerides to 1300; of note patient's triglycerides were than 1300 range and 02/2017. Clinically and subjectively improving with only mild abdominal pain and tolerating a regular diet. Discussed with Dr. Castañeda and since triglycerides appear to be at patient's baseline and he is improved we will discharge home on fenofibrate. Patient has history of medication noncompliance and was supposed to be on Lopid at home; strongly encouraged medication compliance. Recommend follow-up with PCP within one week. Low-fat/low-cholesterol diet Qualifiers: Chronicity: acute Pancreatitis type: unspecified pancreatitis type Acute pancreatitis complication: no infection or necrosis Qualified Code(s): K85.90 - Acute pancreatitis without necrosis or infection, unspecified (3) Hypertriglyceridemia Priority: Primary Status: Chronic Assessment and Plan: Triglycerides 1700, LDL too numerous to count. Plan as noted above. Discharge home on fenofibrate and statin (4) Diabetes Priority: Primary Status: Chronic Assessment and Plan: per hx. Uncontrolled due to medication noncompliance; Hgb A1c 12.3%. Home metformin and Amaryl resumed at discharge. Strongly encouraged medication and dietary compliance Qualifiers: Diabetes mellitus type: type 2 Diabetes mellitus jail insulin use: without oil heaterman use Diabetes mellitus complication status: with hyperglycemia Qualified Code(s): E11.65 - Type 2 diabetes mellitus with hyperglycemia (5) HTN (hypertension) Priority: Primary Status: Chronic Assessment and Plan: per hx. BP controlled. Cont BP medication Qualifiers: Hypertension type: unspecified secondary hypertension Qualified Code(s): I15.9 - Secondary hypertension, unspecified; I15 - Secondary hypertension (6) Hyponatremia Priority: Primary Status: Acute Assessment and Plan: Pseudohyponatremia secondary to hyperglycemia; remained neurologically intact. Na normalized as glucose improved. (7) Tachycardia Priority: Primary Status: Acute Assessment and Plan: sinus tachycardia; likely related to anxiety and pain. resolved at discharge. If tachycardia persists recommend outpatient echocardiogram Hospital course: Mr. Dominguez is a 32 year old male Discharge discussed with: patient (Seen and examined at bedside. He says he feels better would like to go home today. Having some mild abdominal pain but overall improved. Tolerating regular diet. Strongly encouraged medication compliance and follow-up. Also encouraged low-cholesterol/low-fat diet. Patient by's return to ER abdominal pain worsens or if he develops nausea vomiting and unable to tolerate PO. ) - Time Spent with Patient Total time spent providing and/or coordinating discharge services: - Discharge Medications Prescriptions: Atorvastatin [Lipitor] 40 mg PO HS #30 tablet Fenofibrate Nanocrystallized [Fenofibrate] 145 mg PO DAILY #30 tablet Glimepiride [Amaryl] 2 mg PO DAILY #30 tablet Lisinopril [Zestril] 2.5 mg PO DAILY #30 tablet Metformin HCl [Glucophage] 1,000 mg PO BID #60 tablet Home Medications: BuPROPion SR (12 HR) 150 mg PO BID 05/06/18 [History] Colchicine [Mitigare] 0.6 mg PO DAILY PRN 05/06/18 [History] Dicyclomine [Bentyl] 10 mg PO QID 05/06/18 [History] Melatonin 5 mg PO HS PRN 05/06/18 [History] Synjardy 5-1,000 mg Tablet 1 tab PO DAILY 05/06/18 [History] Atorvastatin [Lipitor] 40 mg PO HS #30 tablet 05/07/18 [Rx] Fenofibrate Nanocrystallized [Fenofibrate] 145 mg PO DAILY #30 tablet 05/07/18 [ Rx] Glimepiride [Amaryl] 2 mg PO DAILY #30 tablet 05/07/18 [Rx] Lisinopril [Zestril] 2.5 mg PO DAILY #30 tablet 05/07/18 [Rx] Metformin HCl [Glucophage] 1,000 mg PO BID #60 tablet 05/07/18 [Rx] Allergies/Adverse Reactions: 3 Allergy/AdvReac Type Severity Reaction Status Date / Time prednisolone Allergy Rash, Verified 04/28/18 12:42 Shortness of Breath Date of admission: 05/05/18 14:38 Primary care physician: Dennise Baer CNP Consults: 05/05/18 16:30 Consult to Clearance Center Manager [CONS] Routine Reason for SW Consult: Uncontrolled DM, no insurance Discharging clinician: Mabel Yee Anticipated date of discharge: 05/07/18 - Constitutional Vitals: Temp Pulse Resp BP Pulse Ox 98.3 F 98 16 115/77 96 05/07/18 06:49 05/07/18 06:49 05/07/18 06:49 05/07/18 06:49 05/07/18 09:32 General appearance: Present: A&O X 3, obese, answers questions appropriately - Patient Status Disposition: Home, Self-Care Condition: Good Functional capacity at discharge: independent ambulation Overall status at discharge: patient is progressing back to baseline - Discharge Instructions Instructions: Pancreatitis (DC), Diabetes Mellitus Type 2 in Adults (DC), Metformin (By mouth), Glimepiride (By mouth), Fenofibrate (By mouth), Atorvastatin (By mouth), Low Fat Diet (DC), Cholesterol and Your Health (GEN), Nephrostomy Tube Care (DC), Hydronephrosis (DC) Follow Up With: Dennise Baer CNP [Primary Care Provider] - (call within one week for f/u appt ) Tom Coronel MD [Partnered Physician] - (Please call for follow-up appt within one week) - Diet and Activity Activity: increase activity as tolerated Diet: diabetic diet, low fat, low cholesterol, low salt diet
[2018-05-07 10:27] VITALS: BP 138/85
[2018-05-07 10:59] LABS: BUN/Creatinine Ratio 15 (6-26); Blood Urea Nitrogen 10 mg/dL (6-20); Calcium 8.5 mg/dL (8.6-10.3); Carbon Dioxide 23 mEq/L (23-29); Chloride 101 mEq/L (98-107); Glucose 242 mg/dL (70-105); Osmolality,Calculated 281 (280-300); Sodium 132 mEq/L (136-145); eGFR For Non-African Americans > 60 (> 60)
== END 2018-05-07 11:58 | disposition home or self-care (01) | DRG 698 ==
LOC: EMEROOARM 10:28 → 3ANU 14:38
PROVIDERS: ADMIT Internal Medicine; ATTEND Internal Medicine

== ENCOUNTER 2018-09-08 09:10 | Inpatient (IN) ==
[2018-09-08] MEDS ORDERED: Lidocaine 1% 20 ML MDV INFILT ONE (09:40)
--- NOTE | 2018-09-08 09:51 | Emergency Department Note ---
Disposition Clinical Impression: Abscess of skin or subcutaneous tissue Disposition: Admitted As Inpatient Condition: Fair Skin/Abscess/FB HPI Chief complaint: ED Skin/Abscess/Foreign Body Stated complaint: abscess Time Seen by Provider: 09/08/18 09:15 Source: patient Limitations: no limitations Nursing Notes Reviewed: Yes Vital Signs Reviewed: Yes HPI Narrative: 33-year-old male with history of diabetes presents with abscess. Patient noticed a boil in left thigh on Saturday (5 days ago). He had temperature 101 on . Patient visited urgent care on Saturday. The provider collected some drainage from the abscess for culture.And he was discharged home with Bactrim DS. Pt stated the redness and swelling are getting better. But the size of abscess has no change. Pt got a phone call today that the culture indicated Strep B infection. He was suggested to go back Urgent care and have Penicillin shot. Pt decided to come to ER for further evaluation. Pt denied chills and fever since Saturday. Pt Subjective Complaint: abscess/boil Onset (ago): day(s) (5) Location: E Home Medications Medication Instructions Recorded Confirmed BuPROPion SR (12 HR) [Wellbutrin 150 mg PO BID #0 05/06/18 09/08/18 SR] Buspirone HCl [Buspar] 7.5 mg PO BID 09/08/18 09/08/18 Escitalopram [Lexapro] 20 mg PO DAILY 09/08/18 09/08/18 Glimepiride [Amaryl] 4 mg PO DAILY 09/08/18 09/08/18 Lisinopril [Zestril] 5 mg PO DAILY 09/08/18 09/08/18 Tramadol HCl [Ultram] 50 mg PO TID PRN 09/08/18 09/08/18 Previous Rx's Medication Instructions Recorded Atorvastatin [Lipitor] 40 mg PO HS #30 tablet 05/07/18 Fenofibrate Nanocrystallized 145 mg PO DAILY #30 tablet 05/07/18 [Fenofibrate] Metformin HCl [Glucophage] 1,000 mg PO BID #60 tablet 05/07/18 Sulfamethoxazole/Trimeth DS 1 each PO BID #20 tablet 09/05/18 [Bactrim DS] Allergies Allergy/AdvReac Type Severity Reaction Status Date / Time prednisolone Allergy Rash, Verified 12/14/18 10:22 Shortness of Breath Constitutional: Reports: fever Eyes: Denies: eye pain ENT ED: Denies: ear pain Cardiovascular: Denies: chest pain Respiratory: Denies: cough Gastrointestinal: Denies: abdominal pain Genitourinary: Denies: urgency Musculoskeletal: Denies: back pain Integumentary: Reports: lesions (abscess on left thigh). Denies: rash Neurological: Denies: headache Psychiatric: Denies: anxiety Endocrine: Denies: fatigue Hematological/Lymphatic: Denies: easy bleeding Allergic/Immunologic: Denies: facial swelling Past Medical History - Past Medical History Medical history: Reports: diabetes, hyperlipidemia, hypertension Surgical history: Reports: non-contributory, other Psychiatric history: Reports: anxiety, depression, PTSD - Social History Smoking Status: Never smoker Smokeless Tobacco Status: No Alcohol use: Reports: none Drug use: Reports: none Physical Exam - General Limitations: no limitations General appearance: alert, in no apparent distress - Head Head exam: atraumatic - Eye Eye exam: Present: normal appearance - ENT ENT exam: normal exam - Neck Neck exam: Present: normal inspection - Chest Chest inspection: Present: normal inspection - Respiratory Respiratory exam: Present: normal lung sounds bilaterally. Absent: respiratory distress - Cardiovascular Cardiovascular exam: Present: tachycardia - Abdominal Exam Abdominal exam: Present: soft, Non-Tender - Expanded Lower Extremity Exam Upper leg exam: Absent: normal inspection (a 3x3 cm induration on media side left thigh, erythema, tender to palpation, a 1x1 cm opening on top with purulent drainage) - Back Exam Back exam: Present: normal inspection, full ROM - Neurological Exam Neurological exam: Present: alert, oriented X3 - Psychiatric Psychiatric exam: Present: normal affect - Skin Skin exam: Present: warm, intact Course Vital Signs Temperature 97.5 F L 09/08/18 09:14 Pulse Rate 119 09/08/18 09:14 Respiratory Rate 18 09/08/18 09:14 Blood Pressure 132/78 09/08/18 09:14 O2 Sat by Pulse Oximetry 95 09/08/18 09:14 Temperature 97.5 F L 09/08/18 09:22 Pulse Rate 106 09/08/18 14:55 Respiratory Rate 16 09/08/18 14:55 Blood Pressure 148/65 09/08/18 14:55 O2 Sat by Pulse Oximetry 98 09/08/18 14:55 Oxygen Delivery Oxygen Delivery Room Air Skin/Abscess/Foreign Body - MDM Narrative Medical decision making narrative: 33 year old male with history of diabetes, hyperlipidemia presents with left thigh abscess. pt stated the abscess started 5 days ago. He started Bactrim DS three days ago. The size of abscess are getting a little bigger. No chills and fever. Right kidney was removed in April. physical exam: a 3x3 cm induration on media side left thigh, erythema, mild warmth, tender to palpation, a 1x1 cm opening on top, with thick purulent drainage. CT indicated left thigh cellulitis, and a 5x5x2 fluids collection in right abdominal wall. Consult general surgeon Dr. Naidu. He will see the patient in the floor. Spoke with hospitalist Dr. Agosto, pt is accepted. Antibiotics started in ER. Dr. Madison has seen the patient and agrees the above plan. - Differential Diagnosis Likely: abscess of skin or subcutaneous tissue, cellulitis - Lab Data Lab results reviewed: Yes I reviewed the patient's lab results. Result diagrams: 09/08/18 09:46 09/08/18 09:46 Lab Results 09/08/18 09/08/18 09/08/18 Range/Units 09:46 09:46 09:46 WBC 10.4 (4.3-11.1) K/mcL RBC 4.27 (4.19-5.50) M/mcL Hgb 11.9 L (12.9-16.9) g/dL Hct 33.7 L (37.5-50.1) % MCV 78.9 L (83.0-100.0) fL MCH 27.5 L (28.0-33.3) pg MCHC 34.0 (31.6-35.5) g/dL RDW 14.7 H (11.5-14.5) % Plt Count 420 H (140-400) K/mcL MPV 10.7 (9.4-12.4) fL Immature Gran % 4.1 H (0-4) % Seg Neutrophils % 55.9 % Lymphocytes % 19.5 % Monocytes % 16.8 % Eosinophils % 3.6 % Basophils % 0.1 % Neutrophils # 5.8 (1.6-8.9) K/mcL Lymphocytes # 2.0 (0.6-4.6) K/mcL Monocytes # 1.8 H (0.0-1.3) K/mcL Eosinophils # 0.4 (0.0-0.6) K/mcL Basophils # 0.0 (0.0-0.2) K/mcL VBG pH (7.32-7.42) pH Units VBG pCO2 (41-51) mmHg VBG pO2 (25-50) mmHg VBG HCO3 (21-27) mEq/L Sodium 122 L (136-145) mEq/L Potassium 4.0 (3.5-5.1) mEq/L Chloride 91 L (98-107) mEq/L Carbon Dioxide 18 L (23-29) mEq/L BUN 26 H (6-20) mg/dL Creatinine 1.10 (0.70-1.30) mg/dL Est GFR ( Amer) > 60 (> 60) Est GFR (Non-Af Amer) > 60 (> 60) BUN/Creatinine Ratio 24 (6-26) Glucose 473 H (70-105) mg/dL Calculated Osmolality 280 (280-300) Lactic Acid 0.3 L (0.5-2.2) mmol/L Calcium 7.9 L (8.6-10.3) mg/dL Total Bilirubin 0.4 (0.3-1.0) mg/dL AST 12 L (13-39) Units/L ALT 14 (7-52) Units/L Alkaline Phosphatase 49 (34-104) Units/L Serum Total Protein 5.2 L (6.4-8.9) g/dL Albumin 3.2 L (3.5-5.7) g/dL Globulin 2.0 L (2.4-3.5) g/dL Albumin/Globulin Ratio 1.6 (1.1-2.2) 09/08/18 Range/Units 14:01 WBC (4.3-11.1) K/mcL RBC (4.19-5.50) M/mcL Hgb (12.9-16.9) g/dL Hct (37.5-50.1) % MCV (83.0-100.0) fL MCH (28.0-33.3) pg MCHC (31.6-35.5) g/dL RDW (11.5-14.5) % Plt Count (140-400) K/mcL MPV (9.4-12.4) fL Immature Gran % (0-4) % Seg Neutrophils % % Lymphocytes % % Monocytes % % Eosinophils % % Basophils % % Neutrophils # (1.6-8.9) K/mcL Lymphocytes # (0.6-4.6) K/mcL Monocytes # (0.0-1.3) K/mcL Eosinophils # (0.0-0.6) K/mcL Basophils # (0.0-0.2) K/mcL VBG pH 7.29 L (7.32-7.42) pH Units VBG pCO2 41 (41-51) mmHg VBG pO2 52 H (25-50) mmHg VBG HCO3 20 L (21-27) mEq/L Sodium (136-145) mEq/L Potassium (3.5-5.1) mEq/L Chloride (98-107) mEq/L Carbon Dioxide (23-29) mEq/L BUN (6-20) mg/dL Creatinine (0.70-1.30) mg/dL Est GFR ( Amer) (> 60) Est GFR (Non-Af Amer) (> 60) BUN/Creatinine Ratio (6-26) Glucose (70-105) mg/dL Calculated Osmolality (280-300) Lactic Acid (0.5-2.2) mmol/L Calcium (8.6-10.3) mg/dL Total Bilirubin (0.3-1.0) mg/dL AST (13-39) Units/L ALT (7-52) Units/L Alkaline Phosphatase (34-104) Units/L Serum Total Protein (6.4-8.9) g/dL Albumin (3.5-5.7) g/dL Globulin (2.4-3.5) g/dL Albumin/Globulin Ratio (1.1-2.2) - Radiology Data Radiology results reviewed: Yes I reviewed the patient's radiology results. FINDINGS: Bones: Visualized osseous structures are intact. No evidence of periostitis or osseous erosive changes. No evidence of cortical or medullary lesion within the visualized osseous structures. Soft Tissue: There is skin thickening with subcutaneous edema in the medial aspect of the proximal left thigh. There is no evidence of a discrete drainable fluid collection to suggest an abscess. There is no evidence of soft tissue gas. No evidence of inflammation extending into the perineum. No evidence of edema or inflammation of the muscles or muscular fascial planes. No acute abnormality in the visualized intrapelvic contents. The bladder and prostate are unremarkable. Small fat containing bilateral inguinal hernias without acute hernia complication. In the right anterior abdominal wall there is an elliptical fluid collection with rim enhancement measuring 5.1 x 2.4 x 5 cm in size. This may represent a subcutaneous abscess. This also may represent a fluid-filled tract from recent intervention. Recommend correlation with recent procedural history. Joint: Bilateral hips and SI joints demonstrate normal alignment. No evidence of joint effusion. CT/CT LE LT w con IMPRESSION: Subcutaneous edema and skin thickening in the medial aspect of the proximal left thigh suggesting cellulitis. No evidence of abscess or soft tissue gas. No involvement of the perineum. Rim enhancing fluid collection in the right anterior abdominal wall subcutaneous fat measuring 5.1 x 2.4 x 5 cm in size suggesting a soft tissue abscess. This may be related to recent intervention. Recommend correlation with history of recent procedures in this area. D/ / 09/08/2018 13:11:14 Ned Olea MD / alvaro Interpreting Provider: Ned Olea MD
[2018-09-08 10:05] LABS: Basophils % 0.1 %; Eosinophils # 0.4 K/mcL (0.0-0.6); Eosinophils % 3.6 %; Hematocrit 33.7 % (37.5-50.1); Immature Granulocytes % 4.1 % (0-4); Lymphocytes % 19.5 %; Mean Corpuscular Volume 78.9 fL (83.0-100.0); Mean Platelet Volume 10.7 fL (9.4-12.4); Monocytes # 1.8 K/mcL (0.0-1.3); Monocytes % 16.8 %; Neutrophils # 5.8 K/mcL (1.6-8.9); Platelet Count 420 K/mcL (140-400); Red Blood Count 4.27 M/mcL (4.19-5.50); Red Cell Distribution Width 14.7 % (11.5-14.5); Segmented Neutrophils % 55.9 %
[2018-09-08] MEDS ORDERED: *HR* OxyCODONE/APAP 5/325 TABLET PO ONE (10:27)
[2018-09-08 11:04] LABS: Alanine Aminotransferase 14 Units/L (7-52); Albumin 3.2 g/dL (3.5-5.7); Albumin/Globulin Ratio 1.6 (1.1-2.2); Alkaline Phosphatase 49 Units/L (34-104); Aspartate Amino Transferase 12 Units/L (13-39); BUN/Creatinine Ratio 24 (6-26); Bilirubin,Total 0.4 mg/dL (0.3-1.0); Blood Urea Nitrogen 26 mg/dL (6-20); Calcium 7.9 mg/dL (8.6-10.3); Carbon Dioxide 18 mEq/L (23-29); Chloride 91 mEq/L (98-107); Glucose 473 mg/dL (70-105); Osmolality,Calculated 280 (280-300); Sodium 122 mEq/L (136-145); Total Protein 5.2 g/dL (6.4-8.9); eGFR For Non-African Americans > 60 (> 60)
[2018-09-08] MEDS ORDERED: Isovue-370 500 ML INFUS..BTL IV ONE (11:40)
[2018-09-08] MEDS ORDERED: 0.9 % Sodium Chloride 1,000 ML IVC ONE ×2 (11:44→13:37)
[2018-09-08 11:59] LABS: Hemoglobin 11.9 g/dL (12.9-16.9); Mean Corpuscular Hemoglobin 27.5 pg (28.0-33.3)
[2018-09-08] MEDS ORDERED: Piperacillin/Tazobactam 3.375 GM in 0.9 % Sodium Chloride Mini Bag 100 ML IVPB ONE (13:34)
[2018-09-08] MEDS ORDERED: Insulin Human Regular 10 UNIT in 0.9 % Sodium Chloride 10 ML IV ONE (13:35)
[2018-09-08 14:05] LABS: VBG HCO3 20 mEq/L (21-27); VBG PCO2 41 mmHg (41-51); VBG PH 7.29 pH Units (7.32-7.42); VBG PO2 52 mmHg (25-50)
[2018-09-08] MEDS ORDERED: *HR* Dextrose 50 % in Water (Syg) 50 ML SYRINGE IVP PRN ×3 (14:54→18:10)
[2018-09-08] MEDS ORDERED: Insulin Regular, Human 100 UNIT/ML IV PRN (14:54)
--- NOTE | 2018-09-08 14:55 | Internal Med History&Physical ---
Date of Encounter: 09/08/18 Time of Encounter: 14:51 Internal Medicine - H&P: HPI Admitted From: Home Plans for Post Hospital Care: Home History of present illness: Mr. Dominguez is a 33 year old male with history of uncontrolled diabetes on NYDIA, hypertension, hyperlipidemia presented to ER with concern of progressive worsening of redness swelling on left thigh. Patient noticed a boil in left thigh on Saturday and had temperature 101 therefore he visited urgent care on Saturday. The provider collected some drainage from the abscess for cultu re.eventually patient was discharged home with Bactrim DS and Ultram. But patient did not notice much improvement though distended slight better with no change in size of abscess. Pt got a phone call today that the culture indicated Strep B infection. He was suggested to go back Urgent care and have Penicillin shot. But Pt decided to come to ER for further evaluation. In ER initial lab tests with hyponatremia, elevated glucose level with anion gap 15, VBG with acidosis therefore DKA-like picture and decided to admit patient in ICU with DKA protocol. CT thigh with cellulitis and concern for abdominal abscess due to rim-enhancing lesion in right anterior abdominal wall but no gangrene is like picture. ER physician also consulted surgeon. Patient is being admitted for the DKA M management and cellulitis with abscess, failed outpatient therapy. Blood culture and wound culture was drawn in the ER and vancomycin and Zosyn is started Pt denied chills and fever since Saturday. Has some nausea but denies headache dizziness vomiting chest pain short of breath abdominal pain diarrhea urinary complaint Past Med Surg Social Fam HX - Past Medical History Medical history: diabetes, hyperlipidemia, hypertension Additional medical history: Gout. left hell spur. kidney Psychiatric history: anxiety, depression, PTSD - Past Surgical History Surgical History: non-contributory, other Additional surgical history: bilateral myringotomy as a child. tonsils as a child. repair tendon and laceration to left hand 1997. Nephrostomy tube place on right kidney 2017. left kidney obstruction repair 2016. R kidney removed - Social History Smoking Status: Never smoker Smokeless Tobacco Status: No Alcohol use: none Drug use: none - Family History Mother Family Member Ethnicity: Non- Living Status: Still Living Hx Family Cardiac Disorders: Yes (HTN) Hx Family Endocrine Disorder: Yes (DM, Thyroid) Father Adopted: No Family Member Ethnicity: Non- Living Status: Still Living Hx Family Cardiac Disorders: Yes (HTN) Hx Family Endocrine Disorder: Yes (DM) Internal Medicine - H&P: Meds BuPROPion SR (12 HR) [Wellbutrin SR] 150 mg PO BID #0 05/06/18 [History] Atorvastatin [Lipitor] 40 mg PO HS #30 tablet 05/07/18 [Rx] Fenofibrate Nanocrystallized [Fenofibrate] 145 mg PO DAILY #30 tablet 05/07/18 [Rx] Metformin HCl [Glucophage] 1,000 mg PO BID #60 tablet 05/07/18 [Rx] Sulfamethoxazole/Trimeth DS [Bactrim DS] 1 each PO BID #20 tablet 09/05/18 [Rx] Buspirone HCl [Buspar] 7.5 mg PO BID 09/08/18 [History] Escitalopram [Lexapro] 20 mg PO DAILY 09/08/18 [History] Glimepiride [Amaryl] 4 mg PO DAILY 09/08/18 [History] Lisinopril [Zestril] 5 mg PO DAILY 09/08/18 [History] Tramadol HCl [Ultram] 50 mg PO TID PRN 09/08/18 [History] Allergy/AdvReac Type Severity Reaction Status Date / Time prednisolone Allergy Rash, Verified 09/05/18 10:22 Shortness of Breath All Systems PM: A 10-system review of systems was performed and is negative for pertinent findings except as documented above in the HPI. - Constitutional Vitals: Temp Pulse Resp BP Pulse Ox 97.5 F L 93 18 121/68 99 09/08/18 09:22 09/08/18 11:48 09/08/18 11:48 09/08/18 11:48 09/08/18 11:48 Exam: General appearance: No acute distress, A&O X 3, obese Head exam: Atraumatic Eye exam: EOMI, PERRLA ENT exam: Moist oral mucosa Neck nontender, supple Respiratory exam: Clear to auscultation bilaterally Cardiovascular exam: Regular rate and rhythm, no systolic murmur Abdominal exam: Soft, nontender, nondistended, positive bowel sounds Extremities exam: No calf tenderness, no pedal edema Present Left thigh-medial aspect 3x3 cm induration on media side left thigh, erythema, tender to palpation, a 1x1 cm opening on top with purulent drainage) Neurological exam: CN II-XII intact, no focal deficits. No facial droop. No rmal speech. Internal Med - H&P Results - Labs CBC & Chem 7: 09/08/18 09:46 09/08/18 09:46 Labs: Short CBC 09/08/18 Range/Units 09:46 WBC 10.4 (4.3-11.1) K/mcL Hgb 11.9 L (12.9-16.9) g/dL Hct 33.7 L (37.5-50.1) % Plt Count 420 H (140-400) K/mcL Neutrophils # 5.8 (1.6-8.9) K/mcL BMP 09/08/18 09:46 Sodium 122 L Potassium 4.0 Chloride 91 L Carbon Dioxide 18 L BUN 26 H Creatinine 1.10 Glucose 473 H Calcium 7.9 L Liver Function 09/08/18 Range/Units 09:46 Total Bilirubin 0.4 (0.3-1.0) mg/dL AST 12 L (13-39) Units/L ALT 14 (7-52) Units/L Alkaline Phosphatase 49 (34-104) Units/L Albumin 3.2 L (3.5-5.7) g/dL - ABG Interpretation ABG results: 09/08/18 14:01 VBG pH 7.29 L VBG pCO2 41 VBG pO2 52 H VBG HCO3 20 L - Impressions ITS Impressions Lower Extremity CT 09/08/18 00:00 IMPRESSION: Subcutaneous edema and skin thickening in the medial aspect of the proximal left thigh suggesting cellulitis. No evidence of abscess or soft tissue gas. No involvement of the perineum. Rim enhancing fluid collection in the right anterior abdominal wall subcutaneous fat measuring 5.1 x 2.4 x 5 cm in size suggesting a soft tissue abscess. This may be related to recent intervention. Recommend correlation with history of recent procedures in this area. D/ / 09/08/2018 13:11:14 Ned Olea MD / keven norris Interpreting Provider: Ned Olea MD - Assessment and plan (1) Cellulitis and abscess of left lower extremity Current Visit: Yes Status: Acute Assessment and plan: Failed outpatient therapy. Wound culture blood culture done in the ER and a started vancomycin and Zosyn therefore will continue for now. Consulted general surgeon. Doppler ultrasound ordered to rule out DVT CT abdomen with no gangrenous finding but concerning rim-enhancing lesion in right abdominal wall possible sepsis or postprocedure changes. On my examination does not appear abscess on abdomen but patient had right nephrectomy in April 2018 and had few scar lesion in right abdominal wall-surgeon on board for further evaluation (2) DKA (diabetic ketoacidoses) Current Visit: Yes Status: Acute Assessment and plan: Raised blood glucose level, acidosis pH 7.29, anion gap 15, borderline. Secondary to underlying infection cellulitis. Uncontrolled diabetes mellitus. A1c ordered. Keep in ICU and continue DKA protocol with insulin drip. Qualifiers: Diabetes mellitus type: type 2 Diabetes mellitus complication detail: without coma Qualified Code(s): E11.10 - Type 2 diabetes mellitus with ketoacidosis without coma (3) Hyponatremia Current Visit: No Status: Acute Assessment and plan: Most likely pseudohyponatremia due to raised blood glucose level. Continue to monitor BMP. (4) HTN (hypertension) Current Visit: No Status: Chronic Assessment and plan: Well controlled. Continue to monitor. Continue home medicine Qualifiers: Hypertension type: unspecified secondary hypertension Qualified Code(s): I15.9 - Secondary hypertension, unspecified; I15 - Secondary hypertension (5) Hypertriglyceridemia Current Visit: No Status: Chronic Assessment and plan: Fasting lipid profile ordered. Continue home medicine (6) DVT prophylaxis Current Visit: No Status: Acute Assessment and plan: Heparin - Time Spent With Patient Total time spent is greater than 50% in coordination of care (as documented) at patient's floor/unit and/or counseling patient: 25 - 35 minutes
[2018-09-08 14:57] LABS: Bilirubin,Urine Negative (Negative); Blood,Urine Trace (Negative); Clarity,Urine Clear (Clear); Color,Urine Yellow (Yellow); Glucose,Urine (UA) >=1000 mg/dL (Normal); Ketones,Urine 15 mg/dL (Negative); Leukocyte Esterase,Urine Negative (Negative); Nitrite,Urine Negative (Negative); Protein,Urine 100 mg/dL (Neg-Trace); Specific Gravity,Urine > 1.030 (1.010-1.025); Urobilinogen,Urine Normal (Normal)
[2018-09-08 14:59] LABS: Bacteria,Urine None Seen per hpf (None-Few); Hyaline Casts,Urine None Seen per lpf (None-Few); RBC,Urine 0-3 per hpf (0-3); Squamous Epithelial Cell,Urine Few per lpf (None-Few); WBC,Urine 0-3 per hpf (0-3)
[2018-09-08] MEDS ORDERED: Naloxone 0.4 MG/ML INJ IVP PRN (15:00)
[2018-09-08] MEDS ORDERED: Insulin Human Regular 100 UNIT in 0.9 % Sodium Chloride 100 ML IVC SCH ×2 (15:00→16:45)
[2018-09-08] MEDS ORDERED: 0.9 % Sodium Chloride 1,000 ML IVC SCH (15:00)
[2018-09-08] MEDS ORDERED: traMADol 50 MG TABLET PO PRN (15:03)
[2018-09-08] MEDS ORDERED: Lidocaine -MPF 2% 5 ML VIAL ONE (15:22)
--- NOTE | 2018-09-08 15:53 | General Surgery Consult Note ---
<Birgit Ashraf - Last Filed: 09/08/18 16:56> Date of Encounter: 09/08/18 Time of Encounter: 15:00 Assessment and Plan (1) Cellulitis and abscess of left lower extremity Current Visit: Yes Status: Acute The patient is recommended to undergo bedside incision and drainage. Recommendations, risks, and benefits are reviewed with patient he is agreeable to proceed. A signed consent is placed on the hard chart. See procedure for further detail. Please reinforce or change outer dressing PRN. Leave packing in place. Beginning 09/09/2018, remove dressing and packing. Repack with 1/4 inch iodoform gauze for 09/09 and , then transition to plain packing. Cover with a dry dressing. Tape to secure. Antibiotics per primary team. Cultures were obtained during the bedside incision and drainage and are pending. Continue supportive care and discomfort management History of Present Illness Consult date: 09/08/18 (Dr. Ahmet Naidu) Reason for consult: wound care Requesting physician: Major Conti History of present illness: Surgery has been consulted for recommendations regarding LLE abscess Patient's past medical, surgical, social, and family history has been reviewed with the patient and his at bedside and updated where indicated. 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 He reports he noticed a "boil" on his thigh for which he attempted to "pop it in the shower." He states he was able to express a little bit of material and thought he would be amended. He states the next day his discomfort began getting worse, but he continued treatment at home. he then went to the urgent care on Saturday, the area was cultured, and he was discharged on Bactrim and Ultram. He states his discomfort continued to worsen and he told his he needed to go to the emergency department on Saturday. He reports this a.m. he received a call from the urgent care who noted the culture was positive for strip the and he was recommended to go back to the urgent care to have a penicillins shot. The patient however decided to come to the emergency department. He reports fevers, Tmax of 101, fatigue, and left thigh pain that is sharp and aching. He states the area is no longer draining. He denies chest pain, shortness of breath, abdominal pain, nausea, vomiting, constipation, diarrhea, black, bloody, or tarry stool. He is also noted to have an elevated glucose level, and anion gap 15, the AVG with acidosis and therefore likely DKA. He is admitted to the hospitalist for DKA treatment. Past Med Surg Social Fam HX - Past Medical History Source: patient, old records reviewed Medical history: diabetes, hyperlipidemia, hypertension Additional medical history: Gout. left heel spur. kidney failure. surgically absent right kidney Psychiatric history: anxiety, depression, PTSD - Past Surgical History Surgical History: other Additional surgical history: bilateral myringotomy as a child. tonsils as a child. repair tendon and laceration to left hand 1997. Nephrostomy tube place on right kidney 2017. left kidney obstruction repair 2015. R kidney removed - Social History Smoking Status: Never smoker Smokeless Tobacco Status: No Alcohol use: none Drug use: none Occupational status: employed Current living situation: Home - Independent Activity Level: Independent ambulation Recent Out of Country Travel Within the Last 8 Weeks: No Exposure or Possible Exposure to Illness During Travel: No - Family History Father Adopted: No Family Member Ethnicity: Non- Living Status: Still Living Hx Family Cardiac Disorders: Yes (HTN) Hx Family Endocrine Disorder: Yes (DM) Mother Family Member Ethnicity: Non- Living Status: Still Living Hx Family Cardiac Disorders: Yes (HTN) Hx Family Endocrine Disorder: Yes (DM, Thyroid) Medications and Allergies RX: BuPROPion SR (12 HR) [Wellbutrin SR] 150 mg PO BID #0 05/06/18 [History] RX: Atorvastatin [Lipitor] 40 mg PO HS #30 tablet 05/07/18 [Rx] RX: Fenofibrate Nanocrystallized [Fenofibrate] 145 mg PO DAILY #30 tablet 05/07/18 [Rx] RX: Metformin HCl [Glucophage] 1,000 mg PO BID #60 tablet 05/07/18 [Rx] Sulfamethoxazole/Trimeth DS [Bactrim DS] 1 each PO BID #20 tablet 09/05/18 [Rx] Buspirone HCl [Buspar] 7.5 mg PO BID 09/08/18 [History] Escitalopram [Lexapro] 20 mg PO DAILY 09/08/18 [History] Glimepiride [Amaryl] 4 mg PO DAILY 09/08/18 [History] RX: Lisinopril [Zestril] 5 mg PO DAILY 09/08/18 [History] Tramadol HCl [Ultram] 50 mg PO TID PRN 09/08/18 [History] Adhesive Tape [Paper Tape] 1 each TP AD #1 tape 09/09/18 [Rx] Polyhexam Biguan/Gauze Bandage [Curity Amd 4"X4" Non-Woven] 3 each TP AD #30 sponge 09/09/18 [Rx] RX: Iodoform [Curity Iodoform] 1 each PERCUT DAILY #1 bottle 09/09/18 [Rx] Allergy/AdvReac Type Severity Reaction Status Date / Time prednisolone Allergy Rash, Verified 09/05/18 10:22 Shortness of Breath Review of Systems All systems PM: reviewed and no additional remarkable complaints except as stated All systems PM: The remainder of the systems were reviewed and are negative General Surgery Exam Initial Vital Signs Temp Pulse Resp BP Pulse Ox 97.5 F L 119 18 132/78 95 09/08/18 09:14 09/08/18 09:14 09/08/18 09:14 09/08/18 09:14 09/08/18 09:14 Vital Signs Temp Pulse Resp BP Pulse Ox 09/08/18 14:55 106 16 148/65 98 09/08/18 11:48 93 18 121/68 99 09/08/18 10:56 103 16 135/76 95 09/08/18 09:22 97.5 F L 119 18 132/78 95 09/08/18 09:14 97.5 F L 119 18 132/78 95 Intake and Output 09/07/18 09/08/18 09/08/18 23:59 07:59 15:59 Intake Total 2009.1 Balance 2009.1 Intake: IV Fluids 2009.1 HumuLIN R 10 UNIT In Normal 10. 10.1 Saline Flush 10 ML @ 1212 mls/ hr IV ONCE ONE Rx#:[id number] 0.9 % Sodium Chloride 1,000 ML 2000 / 2000 @ 999 mls/hr IVC .Q1H1M ONE Rx# :[id number] Other: Weight 124.103 kg Patient Weight 09/08/18 23:59 Weight 124.103 kg - General physical appearance well developed, no distress, obese - Neck trachea midline - Respiratory normal expansion, normal respiratory effort, clear to auscultation - Cardiovascular Cardiovascular exam: Present: tachycardia - Abdomen Abdomen general surgery: Present: bowel sounds present, soft, non tender - Neurologic Present: CN 2-12 grossly intact, normal coordination, normal sensation - Musculoskeletal Present: normal gait, normal posture - Psychiatric Psychiatric general surgery: Present: A&Ox3, appropriate, oriented to person, oriented to place, oriented to time, speech is normal, memory intact Exam Initial Vital Signs Temp Pulse Resp BP Pulse Ox 97.5 F L 119 18 132/78 95 09/08/18 09:14 09/08/18 09:14 09/08/18 09:14 09/08/18 09:14 09/08/18 09:14 Results - Labs 09/08/18 09:46 09/08/18 09:46 Abnormal lab results Hgb 11.9 g/dL (12.9-16.9) L 09/08/18 09:46 Hct 33.7 % (37.5-50.1) L 09/08/18 09:46 MCV 78.9 fL (83.0-100.0) L 09/08/18 09:46 MCH 27.5 pg (28.0-33.3) L 09/08/18 09:46 RDW 14.7 % (11.5-14.5) H 09/08/18 09:46 Plt Count 420 K/mcL (140-400) H 09/08/18 09:46 Immature Gran % 4.1 % (0-4) H 09/08/18 09:46 Monocytes # 1.8 K/mcL (0.0-1.3) H 09/08/18 09:46 VBG pH 7.29 pH Units (7.32-7.42) L 09/08/18 14:01 VBG pO2 52 mmHg (25-50) H 09/08/18 14:01 VBG HCO3 20 mEq/L (21-27) L 09/08/18 14:01 Sodium 122 mEq/L (136-145) L 09/08/18 09:46 Chloride 91 mEq/L (98-107) L 09/08/18 09:46 Carbon Dioxide 18 mEq/L (23-29) L 09/08/18 09:46 BUN 26 mg/dL (6-20) H 09/08/18 09:46 Glucose 473 mg/dL (70-105) H 09/08/18 09:46 Lactic Acid 0.3 mmol/L (0.5-2.2) L 09/08/18 09:46 Calcium 7.9 mg/dL (8.6-10.3) L 09/08/18 09:46 AST 12 Units/L (13-39) L 09/08/18 09:46 Serum Total Protein 5.2 g/dL (6.4-8.9) L 09/08/18 09:46 Albumin 3.2 g/dL (3.5-5.7) L 09/08/18 09:46 Globulin 2.0 g/dL (2.4-3.5) L 09/08/18 09:46 Ur Specific [place] > 1.030 (1.010-1.025) H 09/08/18 13:53 Urine Protein 100 mg/dL (Neg-Trace) H 09/08/18 13:53 Urine Glucose (UA) >=1000 mg/dL (Normal) H 09/08/18 13:53 Urine Ketones 15 mg/dL (Negative) H 09/08/18 13:53 Urine Blood Trace (Negative) H 09/08/18 13:53 Diabetes panel 09/08/18 Range/Units 09:46 Sodium 122 L (136-145) mEq/L Potassium 4.0 (3.5-5.1) mEq/L Chloride 91 L (98-107) mEq/L Carbon Dioxide 18 L (23-29) mEq/L BUN 26 H (6-20) mg/dL Creatinine 1.10 (0.70-1.30) mg/dL Glucose 473 H (70-105) mg/dL Calcium 7.9 L (8.6-10.3) mg/dL AST 12 L (13-39) Units/L ALT 14 (7-52) Units/L Alkaline Phosphatase 49 (34-104) Units/L Albumin 3.2 L (3.5-5.7) g/dL Calcium panel 09/08/18 Range/Units 09:46 Calcium 7.9 L (8.6-10.3) mg/dL Albumin 3.2 L (3.5-5.7) g/dL Pituitary panel 09/08/18 Range/Units 09:46 Sodium 122 L (136-145) mEq/L Potassium 4.0 (3.5-5.1) mEq/L Chloride 91 L (98-107) mEq/L Carbon Dioxide 18 L (23-29) mEq/L BUN 26 H (6-20) mg/dL Creatinine 1.10 (0.70-1.30) mg/dL Glucose 473 H (70-105) mg/dL Calcium 7.9 L (8.6-10.3) mg/dL Adrenal panel 09/08/18 Range/Units 09:46 Sodium 122 L (136-145) mEq/L Potassium 4.0 (3.5-5.1) mEq/L Chloride 91 L (98-107) mEq/L Carbon Dioxide 18 L (23-29) mEq/L BUN 26 H (6-20) mg/dL Creatinine 1.10 (0.70-1.30) mg/dL Glucose 473 H (70-105) mg/dL Calcium 7.9 L (8.6-10.3) mg/dL Total Bilirubin 0.4 (0.3-1.0) mg/dL AST 12 L (13-39) Units/L ALT 14 (7-52) Units/L Alkaline Phosphatase 49 (34-104) Units/L Albumin 3.2 L (3.5-5.7) g/dL All other labs normal. - Imaging CT scan - abdomen: report reviewed CT scan - pelvis: report reviewed Additional studies: CT left lower extremity reviewed Procedures: General Surgery - Abscess I/D Additional comments: ABSCESS INCISION AND DRAINAGE NOTE INDICATION: Abscess manifested as a tender, swollen fluctuant mass in the superficial subcutaneous tissue. INFORMED CONSENT: The risks and benefits of the procedure including incomplete drainage, scarring, infection and bleeding was explained and the patient verbalized their understanding and wished to proceed with the procedure. PROCEDURE: The area of greatest fluctuance was identified, prepped, and draped in a sterile fashion. Local anesthetic (10 MLs of 2% lidocaine) was introduced subcutaneously over the area of greatest fluctuance. A linear incision was then made over the area of greatest fluctuance, with immediate return of a large amount of purulent material. The wound was explored with a hemostat to break up loculations. Once the wound was explored, cleaned, and irrigated, 1/4 inch iodoform gauze packing was placed loosely in the wound. A dressing was then applied. FINDINGS: Purulent drainage. EBL: <5 mL COMPLICATIONS: None. Signature: Birgit Ashraf APRN, FNP-C Consult Discharge Plan - Plan Instructions: Abscess (GEN) Additional Instructions: Remove dressing and packing. Wash with antibacterial soap. Lightly repack with 1/4 inch iodoform gauze and cover with a dry dressing. Tape to secure. Each day you should place less packing as this is for wicking only. Referrals: Birgit Ashraf CNP [Advanced Practice Nurse] - 09/19/18 9:45 am Dennise Baer CNP [Primary Care Provider] - Prescriptions: Adhesive Tape [Paper Tape] 1 each TP AD #1 tape RX: Iodoform [Curity Iodoform] 1 each PERCUT DAILY #1 bottle Polyhexam Biguan/Gauze Bandage [Curity Amd 4"X4" Non-Woven] 3 each TP AD #30 sponge <Ahmet Naidu - Last Filed: 09/09/18 13:03> Date of Encounter: 09/08/18 Assessment and Plan (1) Cellulitis and abscess of left lower extremity Current Visit: Yes Status: Acute Review of Systems All systems PM: The remainder of the systems were reviewed and are negative General Surgery Exam Initial Vital Signs Temp Pulse Resp BP Pulse Ox 97.5 F L 119 18 132/78 95 09/08/18 09:14 09/08/18 09:14 09/08/18 09:14 09/08/18 09:14 09/08/18 09:14 Exam Initial Vital Signs Temp Pulse Resp BP Pulse Ox 97.5 F L 119 18 132/78 95 09/08/18 09:14 09/08/18 09:14 09/08/18 09:14 09/08/18 09:14 09/08/18 09:14 Results - Labs 09/09/18 04:42 09/09/18 03:14 Abnormal lab results RBC 3.81 M/mcL (4.19-5.50) L 09/09/18 04:42 Hgb 8.8 g/dL (12.9-16.9) L D 09/09/18 04:42 Hct 31.0 % (37.5-50.1) L 09/09/18 04:42 MCV 81.4 fL (83.0-100.0) L 09/09/18 04:42 MCH 23.1 pg (28.0-33.3) L 09/09/18 04:42 MCHC 31.0 g/dL (31.6-35.5) L 09/09/18 04:42 RDW 14.9 % (11.5-14.5) H 09/09/18 04:42 Plt Count 406 K/mcL (140-400) H 09/09/18 04:42 Reactive Lymphocytes Present (Not Present) A 09/09/18 04:42 Platelet Estimate Increased (Normal) H 09/09/18 04:42 Immature Plt Fraction 6.8 % (1.1-6.1) H 09/09/18 04:42 VBG pH 7.28 pH Units (7.32-7.42) L 09/09/18 05:02 VBG pO2 77 mmHg (25-50) H 09/09/18 05:02 VBG HCO3 20 mEq/L (21-27) L 09/09/18 05:02 Sodium 126 mEq/L (136-145) L 09/09/18 03:14 Carbon Dioxide 17 mEq/L (23-29) L 09/09/18 03:14 Glucose 377 mg/dL (70-105) H 09/09/18 03:14 POC Glucose 286 mg/dL (70-99) H 09/09/18 11:28 Hemoglobin A1c 14.4 % (-5.6) H 09/08/18 16:43 Calculated Osmolality 279 (280-300) L 09/09/18 03:14 Lactic Acid 0.3 mmol/L (0.5-2.2) L 09/08/18 09:46 Calcium 6.7 mg/dL (8.6-10.3) L 09/09/18 03:14 AST 12 Units/L (13-39) L 09/08/18 09:46 Serum Total Protein 5.2 g/dL (6.4-8.9) L 09/08/18 09:46 Albumin 3.2 g/dL (3.5-5.7) L 09/08/18 09:46 Globulin 2.0 g/dL (2.4-3.5) L 09/08/18 09:46 Beta-Hydroxybutyric Acd > 2.00 mmol/L (0.02-0.27) H 09/08/18 16:43 Ur Specific [place] > 1.030 (1.010-1.025) H 09/08/18 13:53 Urine Protein 100 mg/dL (Neg-Trace) H 09/08/18 13:53 Urine Glucose (UA) >=1000 mg/dL (Normal) H 09/08/18 13:53 Urine Ketones 15 mg/dL (Negative) H 09/08/18 13:53 Urine Blood Trace (Negative) H 09/08/18 13:53 Diabetes panel 09/08/18 09/09/18 Range/Units 16:43 03:14 Sodium 126 L (136-145) mEq/L Potassium 4.2 (3.5-5.1) mEq/L Chloride 98 (98-107) mEq/L Carbon Dioxide 17 L (23-29) mEq/L BUN 18 (6-20) mg/dL Creatinine 0.88 (0.70-1.30) mg/dL Glucose 377 H (70-105) mg/dL Hemoglobin A1c 14.4 H ( - 5.6) % Calcium 6.7 L (8.6-10.3) mg/dL Calcium panel 09/08/18 09/09/18 Range/Units 16:43 03:14 Calcium 6.7 L (8.6-10.3) mg/dL Phosphorus 3.1 (2.7-4.5) mg/dL Pituitary panel 09/09/18 Range/Units 03:14 Sodium 126 L (136-145) mEq/L Potassium 4.2 (3.5-5.1) mEq/L Chloride 98 (98-107) mEq/L Carbon Dioxide 17 L (23-29) mEq/L BUN 18 (6-20) mg/dL Creatinine 0.88 (0.70-1.30) mg/dL Glucose 377 H (70-105) mg/dL Calcium 6.7 L (8.6-10.3) mg/dL Adrenal panel 09/09/18 Range/Units 03:14 Sodium 126 L (136-145) mEq/L Potassium 4.2 (3.5-5.1) mEq/L Chloride 98 (98-107) mEq/L Carbon Dioxide 17 L (23-29) mEq/L BUN 18 (6-20) mg/dL Creatinine 0.88 (0.70-1.30) mg/dL Glucose 377 H (70-105) mg/dL Calcium 6.7 L (8.6-10.3) mg/dL All other labs normal. - Attending Attestation I have personally performed a face to face evaluation on this patient. I have re viewed and agree with the care plan. History and Exam by me shows: The patient is seen and evaluated with the resident and the clinical nurse practitioner on afternoon rounds. He has a proximal left thigh abscess related to hyperglycemia. We will plan incision and drainage of abscess. Ahmet Naidu MD FACS
[2018-09-08] MEDS: 0.9 % Sodium Chloride 1,000 ML IVC SCH ×2 (15:55→21:42)
[2018-09-08] MEDS ORDERED: Vancomycin 1,750 MG in 0.9 % Sodium Chloride 250 ML IVPB SCH (16:00)
[2018-09-08] MEDS ORDERED: *HR* LORazepam 2 MG/ML VIAL IVP ONE (16:39)
[2018-09-08] MEDS: *HR* Heparin 5,000 UNIT/ML VIAL SQ SCH (17:24)
[2018-09-08 17:51] LABS: Magnesium 1.8 mg/dL (1.6-2.6); Phosphorous 3.1 mg/dL (2.7-4.5)
[2018-09-08] MEDS ORDERED: Dextrose Gel 15 GM/37.5 ML TUBE PO PRN ×2 (18:10)
[2018-09-08] MEDS ORDERED: D5% in Water 1,000 ML IVC PRN (18:10)
[2018-09-08 18:19] LABS: Estimated Average Glucose 367 mg/dl; Hemoglobin A1C 14.4 %
[2018-09-08] MEDS: Insulin LISPRO 300 UNITS/3 ML VIAL SQ SCH ×2 (21:30→21:32)
[2018-09-08] MEDS: BuPROPion SR (12 HR) 150 MG TABLET PO SCH (21:31)
[2018-09-08] MEDS: Piperacillin/Tazobactam 3.375 GM in 0.9 % Sodium Chloride Mini Bag 100 ML IVPB SCH (21:41)
[2018-09-08] MEDS: *HR* OxyCODONE/APAP 5/325 TABLET PO PRN (21:41)
[2018-09-09] MEDS: 0.9 % Sodium Chloride 1,000 ML IVC SCH ×3 (04:03→21:23)
[2018-09-09 04:51] LABS: Mean Platelet Volume 10.4 fL (9.4-12.4); Red Cell Distribution Width 14.9 % (11.5-14.5)
[2018-09-09 04:54] LABS: Basophils # 0.1 K/mcL (0.0-0.2); Basophils % 0.9 %; Eosinophils # 0.4 K/mcL (0.0-0.6); Immature Granulocytes % 3.9 % (0-4); Immature Platelets 6.8 % (1.1-6.1); Lymphocytes # 1.4 K/mcL (0.6-4.6); Lymphocytes % 18.6 %; Mean Corpuscular Volume 81.4 fL (83.0-100.0); Monocytes # 1.3 K/mcL (0.0-1.3); Neutrophils # 4.2 K/mcL (1.6-8.9); Platelet Count 406 K/mcL (140-400); Red Blood Count 3.81 M/mcL (4.19-5.50); Segmented Neutrophils % 54.6 %
[2018-09-09 05:08] LABS: VBG HCO3 20 mEq/L (21-27); VBG PCO2 43 mmHg (41-51); VBG PH 7.28 pH Units (7.32-7.42); VBG PO2 77 mmHg (25-50)
[2018-09-09 05:53] LABS: BUN/Creatinine Ratio 20 (6-26); eGFR For Non-African Americans > 60 (> 60)
[2018-09-09 05:54] LABS: Sodium 126 mEq/L (136-145)
[2018-09-09 05:55] LABS: Blood Urea Nitrogen 18 mg/dL (6-20); Carbon Dioxide 17 mEq/L (23-29); Chloride 98 mEq/L (98-107); Potassium 4.2 mEq/L (3.5-5.1)
[2018-09-09 05:56] LABS: Calcium 6.7 mg/dL (8.6-10.3); Glucose 377 mg/dL (70-105); Osmolality,Calculated 279 (280-300)
[2018-09-09 06:47] LABS: Hemoglobin 8.8 g/dL (12.9-16.9); Mean Corpuscular Hemoglobin 23.1 pg (28.0-33.3)
[2018-09-09] MEDS ORDERED: Ondansetron 4 MG/2 ML VIAL ONE (07:04)
[2018-09-09] MEDS ORDERED: Ondansetron 4 MG/2 ML VIAL IVP PRN (07:33)
[2018-09-09] MEDS: *HR* Heparin 5,000 UNIT/ML VIAL SQ SCH ×2 (07:34→18:27)
[2018-09-09 08:14] LABS: Platelet Estimate Increased (Normal); Reactive Lymphocytes Present (Not Present)
[2018-09-09] MEDS: Piperacillin/Tazobactam 3.375 GM in 0.9 % Sodium Chloride Mini Bag 100 ML IVPB SCH ×2 (08:59→18:44)
[2018-09-09] MEDS: Insulin LISPRO 300 UNITS/3 ML VIAL SQ SCH ×4 (09:00→21:22)
[2018-09-09] MEDS: Fenofibrate 54 MG TABLET PO SCH (09:01)
[2018-09-09] MEDS: BuPROPion SR (12 HR) 150 MG TABLET PO SCH ×2 (09:02→21:22)
--- NOTE | 2018-09-09 09:18 | Internal Med Progress Note ---
Hospitalist Progress Note - Encounter Date of Encounter: 09/09/18 Time of Encounter: 09:20 - Exam Vitals: Temp Pulse Resp BP Pulse Ox 97.5 F L 97 14 131/52 94 09/09/18 07:29 09/09/18 08:00 09/09/18 08:00 09/09/18 08:00 09/09/18 08:00 Exam: General appearance: No acute distress, A&O X 3, obese Head exam: Atraumatic Eye exam: EOMI, PERRLA ENT exam: Moist oral mucosa Neck nontender, supple Respiratory exam: Clear to auscultation bilaterally Cardiovascular exam: Regular rate and rhythm, no systolic murmur Abdominal exam: Soft, nontender, nondistended, positive bowel sounds Extremities exam: No calf tenderness, no pedal edema Present Left thigh-medial aspect 3x3 cm induration on media side left thigh, erythema, tender to palpation, a 1x1 cm opening on top with purulent dr gustavo) Neurological exam: CN II-XII intact, no focal deficits. No facial droop. Normal speech. - Assessment and Plan (1) Cellulitis and abscess of left lower extremity Current Visit: Yes Status: Acute Assessment and Plan: Failed outpatient therapy. Wound culture blood culture done in the ER and a started vancomycin and Zosyn therefore will continue for now. Consulted general surgeon. Doppler ultrasound ordered to rule out DVT CT abdomen with no gangrenous finding but concerning rim-enhancing lesion in right abdominal wall possible sepsis or postprocedure changes. s/p incision and drainage per surgery. Continue IV antibiotics (2) Uncontrolled diabetes mellitus Current Visit: Yes Status: Acute Assessment and Plan: Patient admits to noncompliance with meds. A1c was 14 Will start on basal and short acting insulin. Monitor fingersticks. Counseled. regarding need for compliance (3) HTN (hypertension) Current Visit: Yes Status: Chronic Assessment and Plan: Well controlled. Continue to monitor. Continue home medicine (4) Hypertriglyceridemia Current Visit: Yes Status: Chronic Assessment and Plan: Fasting lipid profile ordered. Continue home medicine (5) Hyponatremia Current Visit: Yes Status: Acute Assessment and Plan: Most likely pseudohyponatremia due to raised blood glucose level. Continue to monitor BMP. (6) DVT prophylaxis Current Visit: Yes Status: Acute Assessment and Plan: Heparin - Time Spent with Patient Total time spent is greater than 50% in coordination of care (as documented) at patient's floor/unit and/or counseling patient: Internal Medicine: Result - Labs CBC & Chem 7: 09/09/18 04:42 09/09/18 03:14 Labs: Short CBC 09/08/18 09/09/18 Range/Units 09:46 04:42 WBC 10.4 7.6 (4.3-11.1) K/mcL Hgb 11.9 L 8.8 L D (12.9-16.9) g/dL Hct 33.7 L 31.0 L (37.5-50.1) % Plt Count 420 H 406 H (140-400) K/mcL Neutrophils # 5.8 4.2 (1.6-8.9) K/mcL BMP 09/08/18 09/09/18 09:46 03:14 Sodium 122 L 126 L Potassium 4.0 4.2 Chloride 91 L 98 Carbon Dioxide 18 L 17 L BUN 26 H 18 Creatinine 1.10 0.88 Glucose 473 H 377 H Calcium 7.9 L 6.7 L Liver Function 09/08/18 Range/Units 09:46 Total Bilirubin 0.4 (0.3-1.0) mg/dL AST 12 L (13-39) Units/L ALT 14 (7-52) Units/L Alkaline Phosphatase 49 (34-104) Units/L Albumin 3.2 L (3.5-5.7) g/dL Urine 09/08/18 Range/Units 13:53 Urine Color Yellow (Yellow) Urine Clarity Clear (Clear) Urine pH 6.0 (5.0-8.0) pH Units Ur Specific [place] > 1.030 H (1.010-1.025) Urine Protein 100 H (Neg-Trace) mg/dL Urine Glucose (UA) >=1000 H (Normal) mg/dL - Impressions Impressions Lower Extremity CT 09/08/18 00:00 IMPRESSION: Subcutaneous edema and skin thickening in the medial aspect of the proximal left thigh suggesting cellulitis. No evidence of abscess or soft tissue gas. No involvement of the perineum. Rim enhancing fluid collection in the right anterior abdominal wall subcutaneous fat measuring 5.1 x 2.4 x 5 cm in size suggesting a soft tissue abscess. This may be related to recent intervention. Recommend correlation with history of recent procedures in this area. D/ / 09/08/2018 13:11:14 Ned Olea MD / alvaro Interpreting Provider: Ned Olea MD Consult Discharge Plan - Plan Instructions: Abscess (GEN) Additional Instructions: Remove dressing and packing. Wash with antibacterial soap. Lightly repack with 1/4 inch iodoform gauze and cover with a dry dressing. Tape to secure. Each day you should place less packing as this is for wicking only. Referrals: Birgit Ashraf IP PARALEGAL [Advanced Practice Nurse] - 09/19/18 9:45 am Dennise Baer CNP [Primary Care Provider] - Prescriptions: Adhesive Tape [Paper Tape] 1 each TP AD #1 tape Iodoform [Curity Iodoform] 1 each PERCUT DAILY #1 bottle Polyhexam Biguan/Gauze Bandage [Curity Amd 4"X4" Non-Woven] 3 each TP AD #30 sponge (2) Uncontrolled diabetes mellitus Qualifiers: Diabetes mellitus type: type 2 Glycemic state: with hyperglycemia Qualified Code(s): E11.65 - Type 2 diabetes mellitus with hyperglycemia (3) HTN (hypertension) Qualifiers: Hypertension type: unspecified secondary hypertension Qualified Code(s): I15.9 - Secondary hypertension, unspecified; I15 - Secondary hypertension
[2018-09-09] MEDS: *HR* OxyCODONE/APAP 5/325 TABLET PO PRN ×2 (09:36→18:27)
[2018-09-09] MEDS ORDERED: Insulin DETEMIR 100 UNIT/ML X5UNITS SQ SCH ×2 (11:15→21:00)
--- NOTE | 2018-09-09 12:18 | Event Note ---
Date of Encounter: 09/09/18 Time of Encounter: 07:15 Left thigh abscess is significantly improved. The induration has decreased by over half. Packing remains in place. Wound care per bedside RN. Patient will need to continue packing for 5 days post I&D (iodoform only. No need to switch to plain gauze). Each day he should place less packing in area. Antibiotics per primary team. Cultures remain pending. Surgery will sign off at this time. Thank you for allowing us to participate in Mr. Scales's care. Please call or reconsult if further questions or needs arise. - Patient Status Disposition: Still a Patient Condition: Fair - Discharge Instructions Instructions: Abscess (GEN) Follow Up With: Dennise Baer CNP [Primary Care Provider] - Birgit Ashraf CNP [Advanced Practice Nurse] - 09/19/18 9:45 am Additional Instructions: Remove dressing and packing. Wash with antibacterial soap. Lightly repack with 1/4 inch iodoform gauze and cover with a dry dressing. Tape to secure. Each day you should place less packing as this is for wicking only.
[2018-09-10] MEDS: Piperacillin/Tazobactam 3.375 GM in 0.9 % Sodium Chloride Mini Bag 100 ML IVPB SCH ×2 (01:05→08:26)
[2018-09-10 03:14] LABS: Basophils # 0.1 K/mcL (0.0-0.2); Basophils % 0.9 %; Eosinophils # 0.4 K/mcL (0.0-0.6); Eosinophils % 5.7 %; Hematocrit 31.5 % (37.5-50.1); Immature Granulocytes % 3.7 % (0-4); Lymphocytes # 1.7 K/mcL (0.6-4.6); Lymphocytes % 23.9 %; Mean Platelet Volume 10.5 fL (9.4-12.4); Monocytes % 14.5 %; Neutrophils # 3.6 K/mcL (1.6-8.9); Platelet Count 348 K/mcL (140-400); Red Blood Count 3.88 M/mcL (4.19-5.50); Segmented Neutrophils % 51.3 %
[2018-09-10 04:05] LABS: Mean Corpuscular Volume 82.4 fL (83.0-100.0)
[2018-09-10 04:07] LABS: Mean Corpuscular HGB Conc 34.1 g/dL (31.6-35.5)
[2018-09-10 04:08] LABS: Mean Corpuscular Hemoglobin 26.7 pg (28.0-33.3)
[2018-09-10 04:09] LABS: Hemoglobin 10.6 g/dL (12.9-16.9)
[2018-09-10 04:39] LABS: BUN/Creatinine Ratio 16 (6-26); Osmolality,Calculated 282 (280-300); eGFR For Non-African Americans > 60 (> 60)
[2018-09-10 04:41] LABS: Blood Urea Nitrogen 13 mg/dL (6-20); Carbon Dioxide 17 mEq/L (23-29); Chloride 102 mEq/L (98-107); Potassium 3.7 mEq/L (3.5-5.1); Sodium 130 mEq/L (136-145)
[2018-09-10 04:42] LABS: Calcium 7.1 mg/dL (8.6-10.3); Glucose 310 mg/dL (70-105); Magnesium 1.4 mg/dL (1.6-2.6); Phosphorous 3.6 mg/dL (2.7-4.5); Vancomycin,Trough 7 mcg/mL (5-10)
[2018-09-10 04:49] LABS: Platelet Estimate Normal (Normal)
[2018-09-10] MEDS: *HR* Heparin 5,000 UNIT/ML VIAL SQ SCH (04:53)
[2018-09-10 07:29] VITALS: BP 126/71
[2018-09-10] MEDS ORDERED: *HR* OxyCODONE/APAP 5/325 TABLET PO PRN (07:41)
[2018-09-10] MEDS ORDERED: traMADol 50 MG TABLET PO PRN (07:42)
--- NOTE | 2018-09-10 08:18 | Discharge Summary ---
Orders not resulted at time of discharge: Pending orders 09/08/18 12:10 Culture,Blood [BC] Stat 09/08/18 16:40 Culture,Anaerobic [RM] Stat Culture,Wound [RM] Stat Gram Stain [RM] Stat 09/11/18 04:00 Basic Metabolic Panel AM 0400 CBC [Complete Blood Count] [HEME] AM 0400 Magnesium AM 0400 Phosphorous AM 0400 09/12/18 04:00 Basic Metabolic Panel AM 0400 CBC [Complete Blood Count] [HEME] AM 0400 Magnesium AM 0400 Phosphorous AM 0400 09/13/18 04:00 Basic Metabolic Panel AM 0400 CBC [Complete Blood Count] [HEME] AM 0400 Magnesium AM 0400 Phosphorous AM 0400 09/14/18 04:00 Basic Metabolic Panel AM 0400 CBC [Complete Blood Count] [HEME] AM 0400 Magnesium AM 0400 Phosphorous AM 0400 09/15/18 04:00 Basic Metabolic Panel AM 0400 CBC [Complete Blood Count] [HEME] AM 0400 Magnesium AM 0400 Phosphorous AM 0400 Date of Encounter: 09/10/18 Time of Encounter: 08:15 - Discharge Diagnosis (1) Cellulitis and abscess of left lower extremity Priority: Primary Status: Acute Assessment and Plan: 33 year old male with history of uncontrolled diabetes on NYDIA, hypertension, hyperlipidemia presented to ER with concern of progressive worsening of redness swelling on left thigh. Patient noticed a boil in left thigh on Saturday and had temperature 101 therefore he visited urgent care on Saturday. The provider collected some drainage from the abscess for culture.eventually patient was discharged home with Bactrim DS and Ultram. But patient did not notice much improvement though distended slight better with no change in size of abscess. Pt got a phone call that the culture indicated Strep B infection. He was suggested to go back Urgent care and have Penicillin shot. But Pt decided to come to ER for further evaluation. In ER initial lab tests with hyponatremia, elevated glucose level with anion gap 15, VBG with acidosis therefore DKA-like picture and decided to admit patient in ICU with DKA protocol. CT thigh with cellulitis and concern for abdominal abscess due to rim-enhancing lesion in right anterior abdominal wall but no gangrene is like picture. ER physician also consulted surgeon. Patient is being admitted for the DKA M management and cellulitis with abscess, failed outpatient therapy. He was assessed with left thigh abscess and DKA with failed outpatient therapy. He was started on vancomycin and Zosyn and general surgery was consulted. They did an incision and drainage which he tolerated well. He will be discharged on a course of augmentin and bactrim. He was weaned off insulin drip and started on subcutaneous short and long acting insulin. A1c was 14. Patient has no insurance and cannot afford levemir and aspart. He was discharged on insulin NPH. 35minutes was spent discharging this patient (2) Uncontrolled diabetes mellitus Priority: Primary Status: Acute Assessment and Plan: Patient admits to noncompliance with meds. A1c was 14 Will start on basal and short acting insulin. Monitor fingersticks. Counseled. regarding need for compliance Qualifiers: Diabetes mellitus type: type 2 Glycemic state: with hyperglycemia Qualified Code(s): E11.65 - Type 2 diabetes mellitus with hyperglycemia (3) HTN (hypertension) Priority: Primary Status: Chronic Qualifiers: Hypertension type: unspecified secondary hypertension Qualified Code(s): I15.9 - Secondary hypertension, unspecified; I15 - Secondary hypertension (4) Hypertriglyceridemia Priority: Primary Status: Chronic (5) Hyponatremia Priority: Primary Status: Acute (6) DVT prophylaxis Priority: Primary Status: Acute Hospital course: Mr. Dominguez is a 33 year old male - Time Spent with Patient Total time spent providing and/or coordinating discharge services: - Discharge Medications Prescriptions: Adhesive Tape [Paper Tape] 1 each TP AD #1 tape Amoxicillin/Clavulanate [Augmentin] 875 mg PO BIDWM 5 Days #10 tablet Iodoform [Curity Iodoform] 1 each PERCUT DAILY #1 bottle Polyhexam Biguan/Gauze Bandage [Curity Amd 4"X4" Non-Woven] 3 each TP AD #30 sponge Sulfamethoxazole/Trimeth DS [Bactrim Ds] 1 each PO BID 5 Days #10 tablet Home Medications: BuPROPion SR (12 HR) [Wellbutrin SR] 150 mg PO BID #0 05/06/18 [History] Atorvastatin [Lipitor] 40 mg PO HS #30 tablet 05/07/18 [Rx] Fenofibrate Nanocrystallized [Fenofibrate] 145 mg PO DAILY #30 tablet 05/07/18 [Rx] Buspirone HCl [Buspar] 7.5 mg PO BID 09/08/18 [History] Escitalopram [Lexapro] 20 mg PO DAILY 09/08/18 [History] Lisinopril [Zestril] 5 mg PO DAILY 09/08/18 [History] Tramadol HCl [Ultram] 50 mg PO TID PRN 09/08/18 [History] Adhesive Tape [Paper Tape] 1 each TP AD #1 tape 09/09/18 [Rx] Iodoform [Curity Iodoform] 1 each PERCUT DAILY #1 bottle 09/09/18 [Rx] Polyhexam Biguan/Gauze Bandage [Curity Amd 4"X4" Non-Woven] 3 each TP AD #30 sponge 09/09/18 [Rx] Amoxicillin/Clavulanate [Augmentin] 875 mg PO BIDWM 5 Days #10 tablet 09/10/18 [Rx] Sulfamethoxazole/Trimeth DS [Bactrim Ds] 1 each PO BID 5 Days #10 tablet 09/10/18 [Rx] Allergies/Adverse Reactions: Allergy/AdvReac Type Severity Reaction Status Date / Time prednisolone Allergy Rash, Verified 09/05/18 10:22 Shortness of Breath Date of admission: 09/08/18 14:53 Primary care physician: Dennise Baer CNP Consults: 09/08/18 13:42 Consult to Surgery [CONS] Stat Consulting Provider: [facility] Reason for Consult: thigh abscess and abnormal abdominal ct Call Completed: Yes 09/08/18 14:54 Consult to [facility] [CONS] Routine Reason for SW Consult: Discharge plan 09/08/18 15:03 Consult to Diabetes Education [CONS] Routine Comment: Reason for Consult: Uncontrolled diabetes mellitus - Constitutional Vitals: Temp Pulse Resp BP Pulse Ox 98.2 F 84 18 126/71 96 09/10/18 07:27 09/10/18 07:27 09/10/18 07:27 09/10/18 07:27 09/10/18 07:27 Exam: General appearance: No acute distress, A&O X 3, obese Head exam: Atraumatic Eye exam: EOMI, PERRLA ENT exam: Moist oral mucosa Neck nontender, supple Respiratory exam: Clear to auscultation bilaterally Cardiovascular exam: Regular rate and rhythm, no systolic murmur Abdominal exam: Soft, nontender, nondistended, positive bowel sounds Extremities exam: No calf tenderness, no pedal edema Present Left thigh-medial aspect 3x3 cm induration on media side left thigh, erythema, tender to palpation, a 1x1 cm opening on top with purulent drainage) Neurological exam: CN II-XII intact, no focal deficits. No facial droop. Normal speech. - Patient Status Disposition: Still a Patient Condition: Fair - Discharge Instructions Instructions: Sulfamethoxazole/Trimethoprim (By mouth), Amoxicillin/Clavulanate Potassium (By mouth), Insulin Lispro Protamine/Insulin Lispro (Injection), Insulin Detemir (Injection), Abscess (GEN) Follow Up With: Birgit Ashraf CNP [Advanced Practice Nurse] - 09/19/18 9:45 am Dennise Baer CNP [Primary Care Provider] - 09/17/18 9:30 am () Additional Instructions: Remove dressing and packing. Wash with antibacterial soap. Lightly repack with 1/4 inch iodoform gauze and cover with a dry dressing. Tape to secure. Each day you should place less packing as this is for wicking only.
[2018-09-10] MEDS: Insulin LISPRO 300 UNITS/3 ML VIAL SQ SCH (08:25)
[2018-09-10] MEDS: BuPROPion SR (12 HR) 150 MG TABLET PO SCH (08:26)
[2018-09-10] MEDS: Fenofibrate 54 MG TABLET PO SCH (08:27)
[2018-09-10] MEDS ORDERED: Aminoglycoside Consult 1 EACH MC ONE (11:00)
[2018-09-10] MEDS ORDERED: Sulfamethoxazole/Trimeth DS 1 EACH TABLET PO SCH (21:00)
== END 2018-09-10 11:01 | disposition still patient (30) | DRG 579 ==
LOC: EMEROOARM 09:10 → ICNU 14:53 → 2ANU 09-09 17:57
PROVIDERS: ADMIT Internal Medicine; ATTEND Internal Medicine

== ENCOUNTER 2020-02-29 10:25 | Inpatient (IN) ==
[~2020-02-29 10:25] MED LIST: *HR* Labetalol 20 MG/4 ML SYRINGE IVP PRN; *HR* Promethazine 25 MG/ML VIAL IVP PRN; Acetaminophen IV 1,000 MG/100 ML INFUS..BTL IVPB ONE; Famotidine 20 MG/2 ML VIAL IVP ONE; Pregabalin 75 MG CAPSULE PO ONE
[2020-02-29] MEDS ORDERED: *HR* Succinylcholine 200 MG/10 ML VIAL IVP ONE (10:36)
[2020-02-29] MEDS ORDERED: Lidocaine -MPF 2% 2 ML VIAL ONE ×2 (10:36→16:01)
[2020-02-29] MEDS ORDERED: Dexamethasone 4 MG/ML VIAL ONE (10:36)
[2020-02-29] MEDS ORDERED: *HR* Rocuronium Bromide 50 MG/5 ML VIAL ONE ×2 (10:36→14:40)
[2020-02-29] MEDS ORDERED: Lidocaine HCL 4 ML Topical Solution (Laryng-O-Jet Kit Sterile Pak) TP ONE (10:36)
[2020-02-29] MEDS ORDERED: Ondansetron 4 MG/2 ML VIAL ONE (10:36)
[2020-02-29] MEDS ORDERED: *HR* Midazolam HCl 5 MG/5 ML VIAL IVP ONE (10:38)
[2020-02-29] MEDS ORDERED: *HR* FentaNYL (PF) 100 MCG/2 ML VIAL ONE ×2 (10:39→13:40)
[2020-02-29] MEDS ORDERED: *HR* Propofol 200 MG/20 ML VIAL IVP ONE (10:39)
[2020-02-29] MEDS ORDERED: levoFLOXacin 500 MG/100 ML 500 MG/100 ML BAG IVPB ONE (10:43)
[2020-02-29] MEDS: Ringers Solution, Lactated 1,000 ML IVC SCH ×3 (11:43→16:11)
[2020-02-29] MEDS ORDERED: *HR* HYDROmorphone 2 MG TABLET PO PRN (12:00)
[2020-02-29] MEDS ORDERED: Bupivacaine/EPI 1:200k 0.25%PF 30 ML VIAL ONE (13:21)
[2020-02-29] MEDS ORDERED: *HR* PHENYLEPHRINE 1,000 MCG/10 ML SYRINGE IVP ONE (14:29)
[2020-02-29] MEDS ORDERED: *HR* Phenylephrine 10 MG/ML VIAL ONE (15:01)
[2020-02-29] MEDS ORDERED: *HR* HYDROMORPHONE 2 MG/ML VIAL ONE (16:34)
[2020-02-29] MEDS ORDERED: *HR* HYDROcodone/Acet 5/325 mg TABLET PO PRN ×2 (16:40→18:50)
[2020-02-29] MEDS ORDERED: Naloxone 0.4 MG/ML INJ IVP PRN ×2 (16:40→18:50)
[2020-02-29] MEDS ORDERED: Ondansetron 4 MG/2 ML VIAL IVP PRN ×2 (16:40→18:50)
[2020-02-29] MEDS ORDERED: *HR* OxyCODONE Immed Rel 5 MG TABLET PO PRN (16:40)
[2020-02-29] MEDS ORDERED: *HR* Belladonna Alkaloids/Opium 30 MG RECTAL SUPPOSITORY RC PRN ×2 (16:40→18:50)
[2020-02-29] MEDS ORDERED: 0.9 % Sodium Chloride 1,000 ML IVC SCH (16:45)
[2020-02-29] MEDS: *HR* HYDROmorphone (PF) 1 MG/ML SYRINGE IVP PRN ×3 (17:35→17:57)
[2020-02-29] MEDS: *HR* OxyCODONE Immed Rel 5 MG TABLET PO PRN ×3 (17:45→20:38)
[2020-02-29] MEDS ORDERED: D5% in Water 1,000 ML IVC PRN (18:50)
[2020-02-29] MEDS ORDERED: Ringers Solution, Lactated 1,000 ML IVC SCH (18:50)
[2020-02-29] MEDS ORDERED: *HR* Dextrose 50 % in Water (Syg) 50 ML SYRINGE IVP PRN (18:50)
[2020-02-29] MEDS ORDERED: Dextrose Gel 15 GM/37.5 ML TUBE PO PRN ×2 (18:50)
[2020-02-29] MEDS: BuPROPion SR (12 HR) 150 MG TABLET PO SCH (20:36)
[2020-02-29] MEDS: hydrOXYzine pamoate 25 MG CAPSULE PO SCH (20:37)
[2020-02-29] MEDS: allopurinoL 100 MG TABLET PO SCH (20:37)
[2020-02-29] MEDS ORDERED: Insulin LISPRO 300 UNITS/3 ML VIAL SQ SCH (22:00)
[2020-02-29] MEDS: 0.9 % Sodium Chloride 1,000 ML IVC SCH (22:39)
[2020-03-01] MEDS: *HR* OxyCODONE Immed Rel 5 MG TABLET PO PRN ×2 (03:50→09:54)
[2020-03-01 06:13] LABS: White Blood Count 6.4 K/mcL (4.3-11.1)
[2020-03-01 06:14] LABS: Basophils % 0.3 %; Eosinophils # 0.1 K/mcL (0.0-0.6); Hematocrit 40.9 % (37.5-50.1); Hemoglobin 13.4 g/dL (12.9-16.9); Immature Granulocytes % 0.6 % (0-4); Lymphocytes # 1.1 K/mcL (0.6-4.6); Lymphocytes % 17.8 %; Mean Corpuscular HGB Conc 32.8 g/dL (31.6-35.5); Mean Corpuscular Hemoglobin 25.5 pg (28.0-33.3); Mean Corpuscular Volume 77.9 fL (83.0-100.0); Mean Platelet Volume 10.5 fL (9.4-12.4); Monocytes # 0.5 K/mcL (0.0-1.3); Monocytes % 8.2 %; Neutrophils # 4.5 K/mcL (1.6-8.9); Platelet Count 188 K/mcL (140-400); Red Blood Count 5.25 M/mcL (4.19-5.50); Red Cell Distribution Width 14.3 % (11.5-14.5); Segmented Neutrophils % 71.1 %
[2020-03-01] MEDS: 0.9 % Sodium Chloride 1,000 ML IVC SCH ×2 (06:25→11:04)
[2020-03-01 06:33] LABS: BUN/Creatinine Ratio 14 (6-26); Blood Urea Nitrogen 20 mg/dL (6-20); Calcium 8.2 mg/dL (8.6-10.3); Carbon Dioxide 27 mEq/L (23-29); Chloride 96 mEq/L (98-107); Glucose 263 mg/dL (70-105); Osmolality,Calculated 278 (280-300); Sodium 128 mEq/L (136-145); eGFR For African Americans > 60 (> 60); eGFR For Non-African Americans 57 (> 60)
[2020-03-01 07:06] VITALS: BP 136/80
[2020-03-01] MEDS ORDERED: Insulin LISPRO 300 UNITS/3 ML VIAL SQ SCH (07:30)
[2020-03-01] MEDS ORDERED: *HR* Glimepiride 4 MG TABLET PO SCH (08:00)
[2020-03-01] MEDS: hydrOXYzine pamoate 25 MG CAPSULE PO SCH (08:00)
[2020-03-01] MEDS: allopurinoL 100 MG TABLET PO SCH (08:01)
[2020-03-01] MEDS: BuPROPion SR (12 HR) 150 MG TABLET PO SCH (08:01)
== END 2020-03-01 11:25 | disposition home or self-care (01) | DRG 660 ==
LOC: SAMDAY 10:25 → 3ANU 18:46
PROVIDERS: ADMIT Urology; ATTEND Urology

== ENCOUNTER 2020-04-04 10:26 | Inpatient (IN) ==
[2020-04-04] MEDS ORDERED: *HR* Promethazine 25 MG/ML VIAL IVP ONE (10:39)
[2020-04-04] MEDS ORDERED: Morphine Sulfate 2 MG/ML SYRINGE IVP ONE ×2 (10:39→11:58)
[2020-04-04] MEDS ORDERED: 0.9 % Sodium Chloride 1,000 ML IVC ONE ×2 (10:39→12:14)
[2020-04-04] MEDS ORDERED: Isovue-370 500 ML BOTTLE IVP ONE (10:40)
[2020-04-04 11:25] LABS: Immature Granulocytes % 0.5 % (0-4)
[2020-04-04 11:26] LABS: Basophils # 0.1 K/mcL (0.0-0.2); Basophils % 0.4 %; Eosinophils # 0.2 K/mcL (0.0-0.6); Hematocrit 43.6 % (37.5-50.1); Lymphocytes # 2.1 K/mcL (0.6-4.6); Lymphocytes % 14.1 %; Mean Corpuscular Volume 75.7 fL (83.0-100.0); Mean Platelet Volume 10.3 fL (9.4-12.4); Monocytes # 1.1 K/mcL (0.0-1.3); Monocytes % 7.4 %; Neutrophils # 11.4 K/mcL (1.6-8.9); Platelet Count 337 K/mcL (140-400); Red Blood Count 5.76 M/mcL (4.19-5.50); Segmented Neutrophils % 76.6 %; White Blood Count 14.9 K/mcL (4.3-11.1)
[2020-04-04 11:48] LABS: Troponin I < 0.03 ng/mL (< 0.04)
[2020-04-04] MEDS ORDERED: Ondansetron 4 MG/2 ML VIAL IVP ONE (11:58)
[2020-04-04 12:39] LABS: Lipase 1389 Units/L (11-82)
[2020-04-04 12:55] LABS: Hemoglobin 15.9 g/dL (12.9-16.9)
[2020-04-04 12:56] LABS: Alanine Aminotransferase 20 Units/L (7-52); Albumin/Globulin Ratio 1.8 (1.1-2.2); Alkaline Phosphatase 47 Units/L (34-104); Aspartate Amino Transferase 17 Units/L (13-39); BUN/Creatinine Ratio 18 (6-26); Bilirubin,Direct 0.1 mg/dL (0.0-0.2); Blood Urea Nitrogen 23 mg/dL (6-20); Calcium 8.4 mg/dL (8.6-10.3); Carbon Dioxide 19 mEq/L (23-29); Chloride 90 mEq/L (98-107); Globulin 2.2 g/dL (2.4-3.5); Glucose 346 mg/dL (70-105); Mean Corpuscular Hemoglobin 27.6 pg (28.0-33.3); Osmolality,Calculated 275 (280-300); Potassium 4.6 mEq/L (3.5-5.1); Sodium 124 mEq/L (136-145); Total Protein 6.2 g/dL (6.4-8.9); eGFR For African Americans > 60 (> 60); eGFR For Non-African Americans > 60 (> 60)
[2020-04-04 12:57] LABS: Mean Corpuscular HGB Conc 36.5 g/dL (31.6-35.5)
[2020-04-04 13:18] LABS: Bilirubin,Urine Negative (Negative); Blood,Urine Small (Negative); Clarity,Urine Turbid (Clear); Color,Urine Yellow (Yellow); Glucose,Urine (UA) >=1000 mg/dL (Normal); Hyaline Casts,Urine Few per lpf (None Seen); Ketones,Urine Trace mg/dL (Negative); Leukocyte Esterase,Urine Moderate (Negative); Mucus,Urine Few per lpf (None-Few); Nitrite,Urine Negative (Negative); Protein,Urine >=300 mg/dL (Neg-Trace); RBC,Urine 50-100 per hpf (0-3); Specific Gravity,Urine 1.022 (1.010-1.025); Urobilinogen,Urine Normal (Normal); WBC,Urine 30-50 per hpf (0-3)
[2020-04-04 13:30] LABS: Triglycerides > 5000 mg/dL (< 150)
[2020-04-04] MEDS ORDERED: cefTRIAXone 1,000 MG in Water for inj. (sterile) 10 ML IVP ONE (14:05)
[2020-04-04] MEDS ORDERED: Prochlorperazine 10 MG/2 ML VIAL IVP ONE (14:24)
[2020-04-04] MEDS ORDERED: Ondansetron ODT 4 MG TAB.RAPDIS SL PRN (15:34)
[2020-04-04] MEDS ORDERED: Naloxone 0.4 MG/ML INJ IVP PRN ×2 (15:34→15:43)
[2020-04-04] MEDS ORDERED: *HR* Dextrose 50 % in Water (Vial) 50 ML VIAL IVP PRN ×2 (15:43→17:37)
[2020-04-04] MEDS ORDERED: Insulin Human Regular 100 UNIT in 0.9 % Sodium Chloride 100 ML IVC SCH (15:45)
[2020-04-04] MEDS ORDERED: 0.9 % Sodium Chloride 1,000 ML IVC SCH (15:45)
[2020-04-04] MEDS ORDERED: D5% in 0.45% NACL w KCl 20 MEQ/1,000 ML MLS IVC PRN (16:35)
[2020-04-04] MEDS ORDERED: D5% in 0.45% NACL 1,000 ML IVC PRN (16:35)
[2020-04-04] MEDS ORDERED: D10% in Water 500 ML IVC SCH (17:45)
[2020-04-04 18:20] LABS: BUN/Creatinine Ratio 17 (6-26); Blood Urea Nitrogen 20 mg/dL (6-20); Calcium 7.3 mg/dL (8.6-10.3); Carbon Dioxide 19 mEq/L (23-29); Chloride 92 mEq/L (98-107); Glucose 343 mg/dL (70-105); Osmolality,Calculated 276 (280-300); Potassium 4.2 mEq/L (3.5-5.1); Sodium 125 mEq/L (136-145); eGFR For African Americans > 60 (> 60); eGFR For Non-African Americans > 60 (> 60)
[2020-04-04 19:07] LABS: Chol/HDL Ratio 33.7 (0-4.9); Cholesterol 606 mg/dL (< 200); HDL Cholesterol 18 mg/dL (40-59); Triglycerides > 5000 mg/dL (< 150)
[2020-04-04] MEDS ORDERED: Ondansetron 4 MG/2 ML VIAL IVP PRN (19:33)
[2020-04-04] MEDS ORDERED: *HR* Promethazine 25 MG/ML VIAL IVP PRN (19:34)
[2020-04-04] MEDS: Insulin Human Regular 100 UNIT in 0.9 % Sodium Chloride 100 ML IVC SCH (21:38)
[2020-04-04] MEDS: 0.9 % Sodium Chloride 1,000 ML IVC SCH (21:50)
[2020-04-05 00:35] LABS: Basophils % 0.2 %; Eosinophils % 0.1 %; Hematocrit 42.9 % (37.5-50.1); Immature Granulocytes % 0.6 % (0-4); Lymphocytes # 1.2 K/mcL (0.6-4.6); Lymphocytes % 8.6 %; Mean Corpuscular HGB Conc 36.1 g/dL (31.6-35.5); Mean Corpuscular Hemoglobin 27.6 pg (28.0-33.3); Mean Corpuscular Volume 76.3 fL (83.0-100.0); Mean Platelet Volume 10.3 fL (9.4-12.4); Monocytes # 1.1 K/mcL (0.0-1.3); Monocytes % 7.7 %; Neutrophils # 11.8 K/mcL (1.6-8.9); Platelet Count 310 K/mcL (140-400); Red Blood Count 5.62 M/mcL (4.19-5.50); Red Cell Distribution Width 14.3 % (11.5-14.5); Segmented Neutrophils % 82.8 %; White Blood Count 14.2 K/mcL (4.3-11.1)
[2020-04-05 00:38] LABS: Hemoglobin 15.5 g/dL (12.9-16.9)
[2020-04-05] MEDS: D5% in Water 1,000 ML IVC SCH ×2 (01:02→21:44)
[2020-04-05 01:31] LABS: BUN/Creatinine Ratio 15 (6-26); Blood Urea Nitrogen 22 mg/dL (6-20); Calcium 7.6 mg/dL (8.6-10.3); Carbon Dioxide 19 mEq/L (23-29); Chloride 91 mEq/L (98-107); Glucose 427 mg/dL (70-105); Osmolality,Calculated 280 (280-300); Potassium 4.4 mEq/L (3.5-5.1); Sodium 124 mEq/L (136-145); eGFR For African Americans > 60 (> 60); eGFR For Non-African Americans 56 (> 60)
[2020-04-05] MEDS ORDERED: Insulin Human Regular 100 UNIT in 0.9 % Sodium Chloride 100 ML IVC SCH (02:45)
[2020-04-05] MEDS: Morphine Sulfate Oral CONC 10 MG/0.5 ML ORAL.SYG SL PRN ×2 (03:10→16:07)
[2020-04-05] MEDS: Insulin Human Regular 100 UNIT in 0.9 % Sodium Chloride 100 ML IVC SCH ×3 (05:29→21:42)
[2020-04-05 05:32] LABS: Sodium 127 mEq/L (136-145)
[2020-04-05 05:33] LABS: Carbon Dioxide 19 mEq/L (23-29); Chloride 94 mEq/L (98-107); Potassium 4.1 mEq/L (3.5-5.1)
[2020-04-05 05:34] LABS: BUN/Creatinine Ratio 16 (6-26); Blood Urea Nitrogen 23 mg/dL (6-20); Calcium 7.7 mg/dL (8.6-10.3); Glucose 358 mg/dL (70-105); Magnesium 1.4 mg/dL (1.6-2.6); Osmolality,Calculated 282 (280-300); eGFR For African Americans > 60 (> 60); eGFR For Non-African Americans 56 (> 60)
[2020-04-05 05:35] LABS: Phosphorous 1.4 mg/dL (2.7-4.5)
[2020-04-05] MEDS: 0.9 % Sodium Chloride 1,000 ML IVC SCH ×3 (05:39→19:40)
[2020-04-05] MEDS ORDERED: Famotidine 20 MG/2 ML VIAL IVP SCH ×2 (08:45→18:00)
[2020-04-05 09:01] LABS: Estimated Average Glucose 246 mg/dl; Hemoglobin A1C 10.2 %
[2020-04-05] MEDS ORDERED: Ringers Solution, Lactated 1,000 ML IVC ONE (10:01)
[2020-04-05] MEDS ORDERED: Ringers Solution, Lactated 2,000 ML IVC ONE (10:04)
[2020-04-05] MEDS ORDERED: Ondansetron 4 MG/2 ML VIAL IVP PRN (10:04)
[2020-04-05] MEDS ORDERED: *HR* Promethazine 25 MG/ML VIAL IVP PRN ×3 (13:57→21:49)
[2020-04-05] MEDS ORDERED: *HR* LORazepam 2 MG/ML VIAL IVP PRN ×2 (14:01→16:43)
[2020-04-05] MEDS ORDERED: Promethazine 25 MG in 0.9 % Sodium Chloride 50 ML IVPB PRN ×4 (14:04→22:15)
[2020-04-05] MEDS ORDERED: Famotidine 20 MG/2 ML VIAL IVP PRN (18:02)
[2020-04-05] MEDS: *HR* Heparin 5,000 UNIT/ML VIAL SQ SCH (18:23)
[2020-04-05] MEDS: Pantoprazole 40 MG VIAL IVP SCH (18:23)
[2020-04-05] MEDS: *HR* Promethazine 25 MG/ML VIAL IVP PRN (22:26)
[2020-04-06] MEDS: 0.9 % Sodium Chloride 1,000 ML IVC SCH (04:04)
[2020-04-06] MEDS: Pantoprazole 40 MG VIAL IVP SCH ×2 (04:40→17:20)
[2020-04-06] MEDS: *HR* Promethazine 25 MG/ML VIAL IVP PRN ×3 (04:40→23:16)
[2020-04-06] MEDS: *HR* Heparin 5,000 UNIT/ML VIAL SQ SCH ×2 (04:40→17:20)
[2020-04-06] MEDS: Insulin Human Regular 100 UNIT in 0.9 % Sodium Chloride 100 ML IVC SCH ×3 (04:46→20:21)
[2020-04-06 05:20] LABS: BUN/Creatinine Ratio 16 (6-26); Blood Urea Nitrogen 20 mg/dL (6-20); Calcium 7.7 mg/dL (8.6-10.3); Carbon Dioxide 22 mEq/L (23-29); Chloride 97 mEq/L (98-107); Glucose 154 mg/dL (70-105); Osmolality,Calculated 278 (280-300); Potassium 3.9 mEq/L (3.5-5.1); Sodium 131 mEq/L (136-145); eGFR For African Americans > 60 (> 60); eGFR For Non-African Americans > 60 (> 60)
[2020-04-06] MEDS: D5% in Water 1,000 ML IVC SCH (06:37)
[2020-04-06] MEDS: D5% in 0.9% NACL 1,000 ML IVC SCH ×2 (15:38→20:18)
[2020-04-07] MEDS: D5% in 0.9% NACL 1,000 ML IVC SCH ×5 (01:01→23:47)
[2020-04-07 01:32] LABS: BUN/Creatinine Ratio 11 (6-26); Blood Urea Nitrogen 14 mg/dL (6-20); Calcium 7.3 mg/dL (8.6-10.3); Carbon Dioxide 25 mEq/L (23-29); Chloride 100 mEq/L (98-107); Glucose 123 mg/dL (70-105); Osmolality,Calculated 276 (280-300); Potassium 3.4 mEq/L (3.5-5.1); Sodium 132 mEq/L (136-145); eGFR For African Americans > 60 (> 60); eGFR For Non-African Americans > 60 (> 60)
[2020-04-07] MEDS: Insulin Human Regular 100 UNIT in 0.9 % Sodium Chloride 100 ML IVC SCH ×3 (04:12→19:32)
[2020-04-07] MEDS: *HR* Heparin 5,000 UNIT/ML VIAL SQ SCH ×2 (06:05→17:28)
[2020-04-07] MEDS: Pantoprazole 40 MG VIAL IVP SCH ×2 (06:06→17:28)
[2020-04-07] MEDS ORDERED: Potassium Chloride 40 MEQ, Lidocaine 1% 2 ML in 0.9 % Sodium Chloride 500 ML IVPB ONE (07:17)
[2020-04-07] MEDS: *HR* Promethazine 25 MG/ML VIAL IVP PRN ×2 (10:55→23:40)
[2020-04-08] MEDS: D5% in 0.9% NACL 1,000 ML IVC SCH ×3 (03:11→13:00)
[2020-04-08] MEDS: Insulin Human Regular 100 UNIT in 0.9 % Sodium Chloride 100 ML IVC SCH ×2 (03:18→11:04)
[2020-04-08 05:02] LABS: BUN/Creatinine Ratio 6 (6-26); Blood Urea Nitrogen 7 mg/dL (6-20); Calcium 8.1 mg/dL (8.6-10.3); Carbon Dioxide 25 mEq/L (23-29); Chloride 104 mEq/L (98-107); Glucose 98 mg/dL (70-105); Osmolality,Calculated 280 (280-300); Potassium 3.3 mEq/L (3.5-5.1); Sodium 136 mEq/L (136-145); eGFR For African Americans > 60 (> 60); eGFR For Non-African Americans > 60 (> 60)
[2020-04-08] MEDS: *HR* Heparin 5,000 UNIT/ML VIAL SQ SCH (06:50)
[2020-04-08] MEDS: Pantoprazole 40 MG VIAL IVP SCH (06:50)
[2020-04-08] MEDS: *HR* Promethazine 25 MG/ML VIAL IVP PRN (06:54)
[2020-04-08] MEDS ORDERED: Potassium Chloride 40 MEQ, Lidocaine 1% 2 ML in 0.9 % Sodium Chloride 500 ML IVPB ONE (07:38)
[2020-04-08 11:35] VITALS: BP 124/69
== END 2020-04-08 15:05 | disposition home or self-care (01) | DRG 439 ==
LOC: EMEROOARM 10:26 → 3ANU 10:26 → SUATTDRO 16:52 → 3ANU 16:57 → 2NNU 20:24
PROVIDERS: ADMIT Internal Medicine; ATTEND Internal Medicine

== ENCOUNTER 2020-05-10 04:26 | Inpatient (IN) ==
[2020-05-10] MEDS ORDERED: Ondansetron 4 MG/2 ML VIAL IVP ONE ×2 (05:01→08:06)
[2020-05-10] MEDS ORDERED: 0.9 % Sodium Chloride 1,000 ML IVC ONE ×2 (05:01→06:44)
[2020-05-10] MEDS ORDERED: Aspirin 81 MG TAB.CHEW PO ONE (05:03)
[2020-05-10] MEDS ORDERED: *HR* HYDROmorphone (PF) 1 MG/ML SYRINGE IVP ONE ×2 (05:03→08:06)
[2020-05-10] MEDS ORDERED: Isovue-370 500 ML BOTTLE IVP ONE ×2 (05:04→06:44)
[2020-05-10 05:24] LABS: Basophils % 0.5 %; Eosinophils % 1.6 %
[2020-05-10 05:25] LABS: Basophils # 0.1 K/mcL (0.0-0.2); Eosinophils # 0.3 K/mcL (0.0-0.6); Hematocrit 41.9 % (37.5-50.1); Immature Granulocytes % 0.5 % (0-4); Lymphocytes # 3.2 K/mcL (0.6-4.6); Lymphocytes % 17.9 %; Mean Corpuscular Volume 73.6 fL (83.0-100.0); Monocytes % 5.5 %; Neutrophils # 13.1 K/mcL (1.6-8.9); Platelet Count 444 K/mcL (140-400); Red Blood Count 5.69 M/mcL (4.19-5.50); Red Cell Distribution Width 14.2 % (11.5-14.5); White Blood Count 17.7 K/mcL (4.3-11.1)
[2020-05-10 05:47] LABS: Troponin I < 0.03 ng/mL (< 0.04)
[2020-05-10 06:01] LABS: Bilirubin,Urine Negative (Negative); Blood,Urine Trace (Negative); Clarity,Urine Turbid (Clear); Color,Urine Light-Yellow (Yellow); Glucose,Urine (UA) >=1000 mg/dL (Normal); Ketones,Urine Negative (Negative); Leukocyte Esterase,Urine Moderate (Negative); Nitrite,Urine Negative (Negative); Protein,Urine 200 mg/dL (Neg-Trace); Urobilinogen,Urine Normal (Normal); WBC,Urine TNTC per hpf (0-3)
[2020-05-10 06:13] LABS: Hemoglobin 13.6 g/dL (12.9-16.9)
[2020-05-10 06:14] LABS: Mean Corpuscular HGB Conc 32.4 g/dL (31.6-35.5); Mean Corpuscular Hemoglobin 23.9 pg (28.0-33.3)
[2020-05-10 06:31] LABS: BUN/Creatinine Ratio 21 (6-26); Blood Urea Nitrogen 32 mg/dL (6-20); Carbon Dioxide 22 mEq/L (23-29); Chloride 94 mEq/L (98-107); Potassium 3.7 mEq/L (3.5-5.1); Sodium 128 mEq/L (136-145)
[2020-05-10 06:32] LABS: Alanine Aminotransferase 14 Units/L (7-52); Albumin 4.1 g/dL (3.5-5.7); Albumin/Globulin Ratio 1.8 (1.1-2.2); Alkaline Phosphatase 48 Units/L (34-104); Aspartate Amino Transferase 13 Units/L (13-39); Bilirubin,Direct 0.2 mg/dL (0.0-0.2); Bilirubin,Indirect 0.2 mg/dL (0.0-1.0); Bilirubin,Total 0.4 mg/dL (0.3-1.0); Calcium 8.9 mg/dL (8.6-10.3); Globulin 2.3 g/dL (2.4-3.5); Glucose 376 mg/dL (70-105); Lipase 1013 Units/L (11-82); Osmolality,Calculated 288 (280-300); Total Protein 6.4 g/dL (6.4-8.9); eGFR For African Americans > 60 (> 60); eGFR For Non-African Americans 53 (> 60)
[2020-05-10] MEDS ORDERED: Naloxone 0.4 MG/ML INJ IVP PRN (08:30)
[2020-05-10] MEDS ORDERED: 0.9 % Sodium Chloride 1,000 ML IVC SCH (08:30)
[2020-05-10] MEDS ORDERED: Ondansetron 4 MG/2 ML VIAL IVP PRN (08:30)
[2020-05-10] MEDS ORDERED: Morphine Sulfate 2 MG/ML SYRINGE IVP PRN (08:32)
[2020-05-10] MEDS ORDERED: D5% in Water 1,000 ML IVC PRN (08:34)
[2020-05-10] MEDS ORDERED: Dextrose Gel 15 GM/37.5 ML TUBE PO PRN ×2 (08:34)
[2020-05-10] MEDS ORDERED: *HR* Dextrose 50 % in Water (Vial) 50 ML VIAL IVP PRN ×3 (08:34→14:22)
[2020-05-10 08:52] LABS: Chol/HDL Ratio 31.7 (0-4.9); Cholesterol 476 mg/dL (< 200); HDL Cholesterol 15 mg/dL (40-59); Triglycerides > 5000 mg/dL (< 150)
[2020-05-10] MEDS ORDERED: Insulin Human Regular 100 UNIT in 0.9 % Sodium Chloride 100 ML IVC SCH (09:30)
[2020-05-10] MEDS ORDERED: tiZANidine 4 MG TABLET PO PRN (09:48)
[2020-05-10] MEDS ORDERED: Hyoscyamine SL 0.125 MG TAB.SUBL SL PRN (09:48)
[2020-05-10] MEDS ORDERED: Insulin LISPRO 300 UNITS/3 ML VIAL SQ SCH (12:00)
[2020-05-10] MEDS: lisinopriL 10 MG TABLET PO SCH (12:23)
[2020-05-10] MEDS: hydrOXYzine pamoate 25 MG CAPSULE PO SCH ×2 (14:47→20:09)
[2020-05-10] MEDS: D10% in Water 500 ML IVC SCH (14:47)
[2020-05-10] MEDS: Insulin Human Regular 100 UNIT in 0.9 % Sodium Chloride 100 ML IVC SCH (16:02)
[2020-05-10] MEDS: Potassium Chloride 40 MEQ, Lidocaine 1% 2 ML in 0.9 % Sodium Chloride 500 ML IVPB PRN (16:02)
[2020-05-10] MEDS: *HR* Heparin 5,000 UNIT/ML VIAL SQ SCH (17:49)
[2020-05-10 19:49] LABS: Blood Urea Nitrogen > 130 mg/dL (6-20); Calcium 9.6 mg/dL (8.6-10.3); Carbon Dioxide 25 mEq/L (23-29); Chloride 92 mEq/L (98-107); Glucose 333 mg/dL (70-105); Potassium 4.1 mEq/L (3.5-5.1); Sodium 127 mEq/L (136-145); Triglycerides > 5000 mg/dL (< 150); eGFR For African Americans > 60 (> 60); eGFR For Non-African Americans > 60 (> 60)
[2020-05-10] MEDS: Folic Acid 1 MG TABLET PO SCH (20:09)
[2020-05-10] MEDS: allopurinoL 100 MG TABLET PO SCH (20:10)
[2020-05-11] MEDS: D10% in Water 500 ML IVC SCH (00:22)
[2020-05-11] MEDS: Insulin Human Regular 100 UNIT in 0.9 % Sodium Chloride 100 ML IVC SCH ×3 (00:22→18:45)
[2020-05-11] MEDS: (Arginine [L-Arginine] 500 MG) PO SCH ×2 (00:27→09:46)
[2020-05-11] MEDS: LEVOCARNITINE TARTRATE 500 MG PO SCH ×2 (00:27→09:46)
[2020-05-11 01:36] LABS: Basophils # 0.1 K/mcL (0.0-0.2); Basophils % 0.4 %; Eosinophils # 0.3 K/mcL (0.0-0.6); Eosinophils % 1.6 %; Hematocrit 44.9 % (37.5-50.1); Immature Granulocytes % 0.4 % (0-4); Lymphocytes # 2.4 K/mcL (0.6-4.6); Lymphocytes % 14.7 %; Mean Corpuscular HGB Conc 34.5 g/dL (31.6-35.5); Mean Corpuscular Hemoglobin 25.9 pg (28.0-33.3); Monocytes # 0.9 K/mcL (0.0-1.3); Monocytes % 5.8 %; Neutrophils # 12.6 K/mcL (1.6-8.9); Platelet Count 400 K/mcL (140-400); Red Blood Count 5.99 M/mcL (4.19-5.50); Red Cell Distribution Width 15.6 % (11.5-14.5); Segmented Neutrophils % 77.1 %; White Blood Count 16.3 K/mcL (4.3-11.1)
[2020-05-11 01:37] LABS: Hemoglobin 15.5 g/dL (12.9-16.9)
[2020-05-11 02:44] LABS: BUN/Creatinine Ratio 17 (6-26); Blood Urea Nitrogen 18 mg/dL (6-20); Carbon Dioxide 26 mEq/L (23-29); Chloride 89 mEq/L (98-107); Glucose 288 mg/dL (70-105); Osmolality,Calculated 272 (280-300); Potassium 3.6 mEq/L (3.5-5.1); Sodium 125 mEq/L (136-145); eGFR For African Americans > 60 (> 60); eGFR For Non-African Americans > 60 (> 60)
[2020-05-11] MEDS: D5% in Lactated Ringers 1,000 ML IVC SCH ×4 (05:26→21:53)
[2020-05-11] MEDS: *HR* Heparin 5,000 UNIT/ML VIAL SQ SCH ×2 (05:26→16:47)
[2020-05-11 07:31] LABS: BUN/Creatinine Ratio 16 (6-26); Blood Urea Nitrogen 18 mg/dL (6-20); Calcium 8.2 mg/dL (8.6-10.3); Carbon Dioxide 25 mEq/L (23-29); Chloride 90 mEq/L (98-107); Glucose 324 mg/dL (70-105); Magnesium 1.6 mg/dL (1.6-2.6); Osmolality,Calculated 276 (280-300); Phosphorous 3.4 mg/dL (2.7-4.5); Potassium 4.1 mEq/L (3.5-5.1); eGFR For African Americans > 60 (> 60); eGFR For Non-African Americans > 60 (> 60)
[2020-05-11 07:32] LABS: Sodium 126 mEq/L (136-145)
[2020-05-11] MEDS ORDERED: NON-FORMULARY MEDICATION 1 EACH EACH (Omega-3 Fatty Acids/Fish Oil [Eql Omega-3 Fish Oil 1 PO SCH (09:00)
[2020-05-11] MEDS: lisinopriL 10 MG TABLET PO SCH (10:48)
[2020-05-11] MEDS: allopurinoL 100 MG TABLET PO SCH ×3 (10:48→20:28)
[2020-05-11] MEDS: hydrOXYzine pamoate 25 MG CAPSULE PO SCH ×4 (10:48→20:28)
[2020-05-11] MEDS: Cholecalciferol (D-3) 1,000 UNIT (25MCG) TABLET PO SCH (10:48)
[2020-05-11] MEDS: Fenofibrate 54 MG TABLET PO SCH (10:48)
[2020-05-11] MEDS: Folic Acid 1 MG TABLET PO SCH ×3 (10:48→20:28)
[2020-05-11] MEDS: Cyanocobalamin (B-12) 1,000 MCG TABLET PO SCH (10:48)
[2020-05-11 11:52] LABS: BUN/Creatinine Ratio 14 (6-26); Blood Urea Nitrogen 18 mg/dL (6-20); Calcium 8.4 mg/dL (8.6-10.3); Carbon Dioxide 29 mEq/L (23-29); Chloride 95 mEq/L (98-107); Glucose 319 mg/dL (70-105); Osmolality,Calculated 290 (280-300); Potassium 3.7 mEq/L (3.5-5.1); Sodium 133 mEq/L (136-145); eGFR For African Americans > 60 (> 60); eGFR For Non-African Americans > 60 (> 60)
[2020-05-11 14:53] LABS: BUN/Creatinine Ratio 13 (6-26); Blood Urea Nitrogen 15 mg/dL (6-20); Carbon Dioxide 32 mEq/L (23-29); Chloride 94 mEq/L (98-107); Glucose 277 mg/dL (70-105); Osmolality,Calculated 283 (280-300); Potassium 3.6 mEq/L (3.5-5.1); Sodium 131 mEq/L (136-145); eGFR For African Americans > 60 (> 60); eGFR For Non-African Americans > 60 (> 60)
[2020-05-11] MEDS: Potassium Chloride 40 MEQ, Lidocaine 1% 2 ML in 0.9 % Sodium Chloride 500 ML IVPB PRN (15:08)
[2020-05-11 18:58] LABS: BUN/Creatinine Ratio 13 (6-26); Blood Urea Nitrogen 15 mg/dL (6-20); Calcium 8.6 mg/dL (8.6-10.3); Carbon Dioxide 26 mEq/L (23-29); Chloride 98 mEq/L (98-107); Glucose 236 mg/dL (70-105); Osmolality,Calculated 280 (280-300); Potassium 5.1 mEq/L (3.5-5.1); Sodium 131 mEq/L (136-145); eGFR For African Americans > 60 (> 60); eGFR For Non-African Americans > 60 (> 60)
[2020-05-11 19:00] LABS: Triglycerides 1858 mg/dL (< 150)
[2020-05-11 22:13] LABS: BUN/Creatinine Ratio 12 (6-26); Blood Urea Nitrogen 14 mg/dL (6-20); Calcium 8.5 mg/dL (8.6-10.3); Carbon Dioxide 26 mEq/L (23-29); Chloride 99 mEq/L (98-107); Glucose 227 mg/dL (70-105); Osmolality,Calculated 282 (280-300); Potassium 4.3 mEq/L (3.5-5.1); Sodium 132 mEq/L (136-145); eGFR For African Americans > 60 (> 60); eGFR For Non-African Americans > 60 (> 60)
[2020-05-12 00:12] LABS: Protein/Creatinine Ratio,Urine 1.72 mg/mg (0.00-0.20); Sodium, Urine 159.9 mEq/L
[2020-05-12 00:49] LABS: Hematocrit 38.3 % (37.5-50.1); Hemoglobin 12.1 g/dL (12.9-16.9); Mean Corpuscular HGB Conc 31.6 g/dL (31.6-35.5); Mean Corpuscular Hemoglobin 24.3 pg (28.0-33.3); Mean Corpuscular Volume 77.1 fL (83.0-100.0); Mean Platelet Volume 10.1 fL (9.4-12.4); Platelet Count 244 K/mcL (140-400); Red Blood Count 4.97 M/mcL (4.19-5.50); Red Cell Distribution Width 14.6 % (11.5-14.5); White Blood Count 9.4 K/mcL (4.3-11.1)
[2020-05-12 01:08] LABS: BUN/Creatinine Ratio 12 (6-26); Blood Urea Nitrogen 14 mg/dL (6-20); Calcium 8.7 mg/dL (8.6-10.3); Carbon Dioxide 26 mEq/L (23-29); Chloride 98 mEq/L (98-107); Glucose 197 mg/dL (70-105); Osmolality,Calculated 282 (280-300); Potassium 3.4 mEq/L (3.5-5.1); Sodium 133 mEq/L (136-145); eGFR For African Americans > 60 (> 60); eGFR For Non-African Americans > 60 (> 60)
[2020-05-12] MEDS: D5% in Lactated Ringers 1,000 ML IVC SCH ×4 (02:50→19:55)
[2020-05-12] MEDS: Insulin Human Regular 100 UNIT in 0.9 % Sodium Chloride 100 ML IVC SCH ×3 (02:51→22:36)
[2020-05-12] MEDS: *HR* Heparin 5,000 UNIT/ML VIAL SQ SCH ×2 (05:58→16:50)
[2020-05-12 06:48] LABS: BUN/Creatinine Ratio 11 (6-26); Blood Urea Nitrogen 13 mg/dL (6-20); Calcium 8.4 mg/dL (8.6-10.3); Carbon Dioxide 23 mEq/L (23-29); Chloride 102 mEq/L (98-107); Glucose 190 mg/dL (70-105); Osmolality,Calculated 279 (280-300); Potassium 4.3 mEq/L (3.5-5.1); Sodium 132 mEq/L (136-145); Triglycerides 1381 mg/dL (< 150); eGFR For African Americans > 60 (> 60); eGFR For Non-African Americans > 60 (> 60)
[2020-05-12] MEDS: lisinopriL 10 MG TABLET PO SCH (08:10)
[2020-05-12] MEDS: cefTRIAXone 1,000 MG in Water for inj. (sterile) 10 ML IVP SCH (08:10)
[2020-05-12] MEDS: Cyanocobalamin (B-12) 1,000 MCG TABLET PO SCH (08:10)
[2020-05-12] MEDS: Folic Acid 1 MG TABLET PO SCH ×2 (08:10→19:58)
[2020-05-12] MEDS: Fenofibrate 54 MG TABLET PO SCH (08:10)
[2020-05-12] MEDS: Cholecalciferol (D-3) 1,000 UNIT (25MCG) TABLET PO SCH (08:10)
[2020-05-12] MEDS: allopurinoL 100 MG TABLET PO SCH ×2 (08:10→19:57)
[2020-05-12] MEDS: hydrOXYzine pamoate 25 MG CAPSULE PO SCH ×3 (08:10→19:58)
[2020-05-12] MEDS ORDERED: NON-FORMULARY MEDICATION 1 EACH EACH (Duloxetine Hcl [Cymbalta] 60 MG) PO SCH (09:00)
[2020-05-13] MEDS: D5% in Lactated Ringers 1,000 ML IVC SCH ×2 (00:02→04:52)
[2020-05-13 03:44] LABS: Hematocrit 36.6 % (37.5-50.1); Hemoglobin 11.3 g/dL (12.9-16.9); Mean Corpuscular HGB Conc 30.9 g/dL (31.6-35.5); Mean Corpuscular Hemoglobin 24.2 pg (28.0-33.3); Mean Corpuscular Volume 78.4 fL (83.0-100.0); Mean Platelet Volume 10.2 fL (9.4-12.4); Platelet Count 223 K/mcL (140-400); Red Blood Count 4.67 M/mcL (4.19-5.50); Red Cell Distribution Width 14.2 % (11.5-14.5); White Blood Count 5.4 K/mcL (4.3-11.1)
[2020-05-13 04:04] LABS: BUN/Creatinine Ratio 10 (6-26); Blood Urea Nitrogen 10 mg/dL (6-20); Calcium 8.4 mg/dL (8.6-10.3); Carbon Dioxide 25 mEq/L (23-29); Chloride 102 mEq/L (98-107); Chol/HDL Ratio 14.6 (0-4.9); Cholesterol 234 mg/dL (< 200); Glucose 143 mg/dL (70-105); HDL Cholesterol 16 mg/dL (40-59); Magnesium 1.5 mg/dL (1.6-2.6); Osmolality,Calculated 278 (280-300); Potassium 3.5 mEq/L (3.5-5.1); Sodium 133 mEq/L (136-145); Triglycerides 1000 mg/dL (< 150); eGFR For African Americans > 60 (> 60); eGFR For Non-African Americans > 60 (> 60)
[2020-05-13] MEDS: *HR* Heparin 5,000 UNIT/ML VIAL SQ SCH (04:51)
[2020-05-13 06:55] VITALS: BP 121/85
[2020-05-13] MEDS: cefTRIAXone 1,000 MG in Water for inj. (sterile) 10 ML IVP SCH (08:15)
[2020-05-13] MEDS: lisinopriL 10 MG TABLET PO SCH (08:16)
[2020-05-13] MEDS: allopurinoL 100 MG TABLET PO SCH (08:16)
[2020-05-13] MEDS: Folic Acid 1 MG TABLET PO SCH (08:16)
[2020-05-13] MEDS: Cyanocobalamin (B-12) 1,000 MCG TABLET PO SCH (08:16)
[2020-05-13] MEDS: hydrOXYzine pamoate 25 MG CAPSULE PO SCH (08:16)
[2020-05-13] MEDS: Cholecalciferol (D-3) 1,000 UNIT (25MCG) TABLET PO SCH (08:16)
[2020-05-13] MEDS: Fenofibrate 54 MG TABLET PO SCH (08:16)
== END 2020-05-13 12:43 | disposition home or self-care (01) | DRG 439 ==
LOC: EMEROOARM 04:26 → 3BNU 04:26 → 2NNU 14:42
PROVIDERS: ADMIT Student in an Organized Health Care Education/Training Program; ATTEND Student in an Organized Health Care Education/Training Program

== ENCOUNTER 2020-07-27 18:49 | Observation (INO) ==
[2020-07-27 20:45] LABS: Albumin 4.3 g/dL (3.5-5.7); Albumin/Globulin Ratio 1.4 (1.1-2.2); Bilirubin,Total 0.2 mg/dL (0.3-1.0); Globulin 3.1 g/dL (2.4-3.5); Potassium 5.1 mEq/L (3.5-5.1); Total Protein 7.4 g/dL (6.4-8.9)
[2020-07-27] MEDS ORDERED: 0.9 % Sodium Chloride 1,000 ML ONE (20:51)
[2020-07-27] MEDS ORDERED: 0.9 % Sodium Chloride 1,000 ML IVC SCH ×2 (21:00→22:58)
[2020-07-27 21:59] LABS: Basophils % 0.5 %; Eosinophils # 0.3 K/mcL (0.0-0.6); Eosinophils % 4.5 %; Hematocrit 40.9 % (37.5-50.1); Immature Granulocytes % 0.8 % (0-4); Lymphocytes % 30.8 %; Mean Corpuscular Volume 75.9 fL (83.0-100.0); Mean Platelet Volume 11.7 fL (9.4-12.4); Monocytes # 0.7 K/mcL (0.0-1.3); Monocytes % 8.8 %; Neutrophils # 4.2 K/mcL (1.6-8.9); Platelet Count 408 K/mcL (140-400); Red Blood Count 5.39 M/mcL (4.19-5.50); Red Cell Distribution Width 17.2 % (11.5-14.5); Segmented Neutrophils % 54.6 %; White Blood Count 7.6 K/mcL (4.3-11.1)
[2020-07-27 22:00] LABS: Hemoglobin 13.7 g/dL (12.9-16.9); Lymphocytes # 2.3 K/mcL (0.6-4.6); Mean Corpuscular HGB Conc 33.5 g/dL (31.6-35.5); Mean Corpuscular Hemoglobin 25.4 pg (28.0-33.3)
[2020-07-27] MEDS ORDERED: Naloxone 0.4 MG/ML INJ IVP PRN (22:54)
[2020-07-27] MEDS ORDERED: tiZANidine 4 MG TABLET PO PRN (22:59)
[2020-07-27] MEDS ORDERED: Ondansetron ODT 4 MG TAB.RAPDIS SL PRN (22:59)
[2020-07-27] MEDS ORDERED: traZODone 50 MG TABLET PO SCH (23:00)
[2020-07-27] MEDS ORDERED: D5% in Water 1,000 ML IVC PRN (23:02)
[2020-07-27] MEDS ORDERED: Dextrose Gel 15 GM/37.5 ML TUBE PO PRN ×2 (23:02)
[2020-07-27] MEDS ORDERED: *HR* Dextrose 50 % in Water (Vial) 50 ML VIAL IVP PRN (23:02)
[2020-07-27] MEDS ORDERED: Insulin LISPRO 300 UNITS/3 ML VIAL SQ SCH (23:15)
[2020-07-27] MEDS ORDERED: Insulin DETEMIR 100 UNIT/ML X5UNITS SQ SCH (23:15)
[2020-07-28] MEDS: hydrOXYzine pamoate 25 MG CAPSULE PO SCH ×2 (00:27→08:08)
[2020-07-28 02:58] LABS: Hematocrit 37.4 % (37.5-50.1); Mean Corpuscular HGB Conc 36.6 g/dL (31.6-35.5); Mean Corpuscular Hemoglobin 27.9 pg (28.0-33.3); Mean Corpuscular Volume 76.2 fL (83.0-100.0); Mean Platelet Volume 10.3 fL (9.4-12.4); Platelet Count 225 K/mcL (140-400); Red Blood Count 4.91 M/mcL (4.19-5.50); Red Cell Distribution Width 15.3 % (11.5-14.5); White Blood Count 6.5 K/mcL (4.3-11.1)
[2020-07-28 03:00] LABS: Hemoglobin 13.7 g/dL (12.9-16.9)
[2020-07-28] MEDS: *HR* Labetalol 20 MG/4 ML SYRINGE IVP SCH ×2 (03:50→08:08)
[2020-07-28 04:22] LABS: BUN/Creatinine Ratio 23 (6-26); Blood Urea Nitrogen 35 mg/dL (6-20); Calcium 8.2 mg/dL (8.6-10.3); Carbon Dioxide 22 mEq/L (23-29); Chloride 95 mEq/L (98-107); Chol/HDL Ratio 19.1 (0-4.9); Cholesterol 324 mg/dL (< 200); Glucose 451 mg/dL (70-105); HDL Cholesterol 17 mg/dL (40-59); Osmolality,Calculated 294 (280-300); Potassium 3.8 mEq/L (3.5-5.1); Sodium 128 mEq/L (136-145); Thyroid Stimulating Hormone 1.192 mcIU/mL (0.340-5.600); eGFR For African Americans > 60 (> 60); eGFR For Non-African Americans 52 (> 60)
[2020-07-28 05:08] LABS: Triglycerides > 5000 mg/dL (< 150)
[2020-07-28] MEDS ORDERED: *HR* Heparin 5,000 UNIT/ML VIAL SQ SCH (06:00)
[2020-07-28] MEDS ORDERED: Insulin Human Regular 100 UNIT in 0.9 % Sodium Chloride 100 ML IVC SCH (06:30)
[2020-07-28 07:53] VITALS: BP 129/79
[2020-07-28] MEDS ORDERED: D5% in Water 1,000 ML IVC SCH (08:00)
[2020-07-28] MEDS ORDERED: Insulin Human Regular 10 UNIT in 0.9 % Sodium Chloride 10 ML IV ONE (08:09)
[2020-07-28 08:47] LABS: Sodium, Urine 75.1 mEq/L
[2020-07-28 08:52] LABS: Bacteria,Urine Few per hpf (None-Few); Bilirubin,Urine Negative (Negative); Blood,Urine Small (Negative); Clarity,Urine Turbid (Clear); Color,Urine Light-Yellow (Yellow); Glucose,Urine (UA) >=1000 mg/dL (Normal); Ketones,Urine Negative (Negative); Leukocyte Esterase,Urine Large (Negative); Nitrite,Urine Negative (Negative); Protein,Urine 50 mg/dL (Neg-Trace); RBC,Urine 15-30 per hpf (0-3); Specific Gravity,Urine 1.019 (1.010-1.025); Squamous Epithelial Cell,Urine Few per hpf (None-Few); Urobilinogen,Urine Normal (Normal); WBC,Urine TNTC per hpf (0-3)
[2020-07-28] MEDS ORDERED: Doxycycline 100 MG CAPSULE PO SCH (09:00)
[2020-07-28] MEDS ORDERED: Folic Acid 1 MG TABLET PO SCH ×2 (09:00)
[2020-07-28] MEDS ORDERED: allopurinoL 100 MG TABLET PO SCH (09:00)
[2020-07-28] MEDS ORDERED: lisinopriL 10 MG TABLET PO SCH (09:00)
[2020-07-28] MEDS ORDERED: ARGININE 500 MG PO SCH (09:00)
[2020-07-28] MEDS ORDERED: Insulin DETEMIR 100 UNIT/ML X5UNITS SQ SCH (09:00)
[2020-07-28] MEDS ORDERED: Insulin LISPRO 300 UNITS/3 ML VIAL SQ SCH ×2 (11:30→21:00)
[2020-07-28 13:51] LABS: BUN/Creatinine Ratio 22 (6-26); Blood Urea Nitrogen 32 mg/dL (6-20); Calcium 8.7 mg/dL (8.6-10.3); Carbon Dioxide 24 mEq/L (23-29); Chloride 93 mEq/L (98-107); Glucose 355 mg/dL (70-105); Osmolality,Calculated 281 (280-300); Potassium 4.4 mEq/L (3.5-5.1); Sodium 125 mEq/L (136-145); Triglycerides 3993 mg/dL (< 150); eGFR For African Americans > 60 (> 60); eGFR For Non-African Americans 54 (> 60)
== END 2020-07-28 09:40 | disposition home or self-care (01) ==
LOC: EMEROOARM 18:49 → 3ANU 18:49
PROVIDERS: ADMIT Internal Medicine; ATTEND Internal Medicine

== ENCOUNTER 2021-07-05 23:12 | Inpatient (IN) ==
[2021-07-06] MEDS ORDERED: Morphine Sulfate 2 MG/ML SYRINGE IVP ONE ×2 (00:55→06:17)
[2021-07-06] MEDS ORDERED: Ondansetron 4 MG/2 ML VIAL IVP ONE ×2 (00:55→06:17)
[2021-07-06] MEDS ORDERED: Isovue-370 500 ML BOTTLE IVP ONE (01:01)
[2021-07-06 01:19] LABS: Influenza A PCR Negative (Negative); Influenza B PCR Negative (Negative); Resp. Syncytial Virus PCR Negative (Negative)
[2021-07-06 01:20] LABS: SARS-CoV-2 by PCR (In House) Negative (Negative)
[2021-07-06 01:57] LABS: Albumin/Globulin Ratio 1.3 (1.1-2.2); Alkaline Phosphatase 66 Units/L (34-104); Bilirubin,Direct 0.2 mg/dL (0.0-0.2); Bilirubin,Indirect 0.1 mg/dL (0.0-1.0); Bilirubin,Total 0.3 mg/dL (0.3-1.0); Calcium 9.3 mg/dL (8.6-10.3); Carbon Dioxide 24 mEq/L (23-29); Chloride 89 mEq/L (98-107); Globulin 3.1 g/dL (2.4-3.5); Glucose 299 mg/dL (70-105); Lipase 958 Units/L (11-82); Sodium 124 mEq/L (136-145); Total Protein 7.1 g/dL (6.4-8.9); Troponin I < 0.03 ng/mL (< 0.04); eGFR For African Americans > 60 (> 60); eGFR For Non-African Americans > 60 (> 60)
[2021-07-06] MEDS ORDERED: Ringers Solution, Lactated 1,000 ML IVC ONE (02:06)
[2021-07-06 02:20] LABS: Basophils # 0.1 K/mcL (0.0-0.2); Basophils % 0.7 %; Eosinophils # 0.4 K/mcL (0.0-0.6); Eosinophils % 4.3 %; Hematocrit 40.1 % (37.5-50.1); Hemoglobin 13.3 g/dL (12.9-16.9); Immature Granulocytes % 2.8 % (0-4); Immature Platelets 3.5 % (1.1-6.1); Lymphocytes # 1.6 K/mcL (0.6-4.6); Lymphocytes % 15.9 %; Mean Corpuscular HGB Conc 33.2 g/dL (31.6-35.5); Mean Corpuscular Hemoglobin 25.7 pg (28.0-33.3); Mean Corpuscular Volume 77.4 fL (83.0-100.0); Mean Platelet Volume 11.2 fL (9.4-12.4); Monocytes # 0.6 K/mcL (0.0-1.3); Monocytes % 5.5 %; Neutrophils # 7.2 K/mcL (1.6-8.9); Nucleated Red Blood Cells 1.4 /100 WBC (0); Platelet Count 336 K/mcL (140-400); Red Blood Count 5.18 M/mcL (4.19-5.50); Red Cell Distribution Width 14.5 % (11.5-14.5); Segmented Neutrophils % 70.8 %; White Blood Count 10.1 K/mcL (4.3-11.1)
[2021-07-06 03:04] LABS: Alanine Aminotransferase < 3 Units/L (7-52); Aspartate Amino Transferase 27 Units/L (13-39); BUN/Creatinine Ratio 21 (6-26); Blood Urea Nitrogen 18 mg/dL (6-20); Osmolality,Calculated 271 (280-300)
[2021-07-06] MEDS ORDERED: *HR* Dextrose 50 % in Water (Syg) 50 ML SYRINGE IVP PRN ×2 (03:47→15:20)
[2021-07-06] MEDS ORDERED: Meropenem 1,000 MG in 0.9 % Sodium Chloride Mini Bag 100 ML IVPB ONE (05:15)
[2021-07-06] MEDS ORDERED: Ondansetron 4 MG/2 ML VIAL IVP PRN (08:30)
[2021-07-06] MEDS ORDERED: Naloxone 0.4 MG/ML INJ IVP PRN (08:30)
[2021-07-06] MEDS: gemfibroziL 600 MG TABLET PO SCH ×2 (10:00→15:36)
[2021-07-06] MEDS: Ringers Solution, Lactated 1,000 ML IVC SCH ×4 (10:08→23:45)
[2021-07-06] MEDS ORDERED: Morphine Sulfate 2 MG/ML SYRINGE IVP PRN (15:20)
[2021-07-06] MEDS ORDERED: Dextrose Gel 15 GM/37.5 ML TUBE PO PRN ×2 (15:20)
[2021-07-06] MEDS ORDERED: D5% in Water 1,000 ML IVC PRN (15:20)
[2021-07-07] MEDS: Ringers Solution, Lactated 1,000 ML IVC SCH ×3 (05:16→09:38)
[2021-07-07] MEDS ORDERED: *HR* Enoxaparin 40 MG/0.4 ML SYRINGE SQ SCH ×3 (06:00→18:00)
[2021-07-07 06:35] LABS: Basophils # 0.1 K/mcL (0.0-0.2); Basophils % 0.9 %; Eosinophils # 0.6 K/mcL (0.0-0.6); Eosinophils % 7.1 %; Hematocrit 36.3 % (37.5-50.1); Immature Granulocytes % 1.7 % (0-4); Immature Platelets 5.6 % (1.1-6.1); Lymphocytes # 2.6 K/mcL (0.6-4.6); Lymphocytes % 31.3 %; Mean Corpuscular HGB Conc 33.1 g/dL (31.6-35.5); Mean Corpuscular Hemoglobin 26.6 pg (28.0-33.3); Mean Corpuscular Volume 80.5 fL (83.0-100.0); Mean Platelet Volume 10.7 fL (9.4-12.4); Monocytes # 0.6 K/mcL (0.0-1.3); Monocytes % 7.3 %; Platelet Count 220 K/mcL (140-400); Red Blood Count 4.51 M/mcL (4.19-5.50); Red Cell Distribution Width 14.2 % (11.5-14.5); Segmented Neutrophils % 51.7 %; White Blood Count 8.2 K/mcL (4.3-11.1)
[2021-07-07 06:42] LABS: Prothrombin Time 11.6 Seconds (9.4-12.1)
[2021-07-07 06:51] LABS: BUN/Creatinine Ratio 10 (6-26); Blood Urea Nitrogen 8 mg/dL (6-20); Carbon Dioxide 26 mEq/L (23-29); Chloride 94 mEq/L (98-107); Glucose 136 mg/dL (70-105); Lipase 141 Units/L (11-82); Osmolality,Calculated 270 (280-300); Potassium 3.5 mEq/L (3.5-5.1); Sodium 130 mEq/L (136-145); eGFR For African Americans > 60 (> 60); eGFR For Non-African Americans > 60 (> 60)
[2021-07-07 08:22] LABS: Neutrophils # 4.2 K/mcL (1.6-8.9)
[2021-07-07] MEDS: gemfibroziL 600 MG TABLET PO SCH (08:22)
[2021-07-07 08:23] LABS: Platelet Estimate Normal (Normal)
[2021-07-07 10:29] LABS: Estimated Average Glucose 398 mg/dl; Hemoglobin A1C 15.5 %
[2021-07-07 10:41] VITALS: BP 133/89; PULSE 89; TEMP 98.2; O2SAT 97
== END 2021-07-07 11:32 | disposition left against medical advice (07) | DRG 439 ==
LOC: EMEROOARM 23:12 → 2ANU 23:12 → SUATTDRO 07-06 15:22
PROVIDERS: ADMIT Student in an Organized Health Care Education/Training Program; ATTEND Internal Medicine

== ENCOUNTER 2021-07-09 22:57 | Observation (INO) ==
[2021-07-09] MEDS ORDERED: 0.9 % Sodium Chloride 1,000 ML IVC ONE (23:21)
[2021-07-09] MEDS ORDERED: Morphine Sulfate 2 MG/ML SYRINGE IVP ONE (23:56)
[2021-07-09] MEDS ORDERED: Ondansetron 4 MG/2 ML VIAL IVP ONE (23:57)
[2021-07-10 00:10] LABS: Basophils # 0.1 K/mcL (0.0-0.2); Basophils % 0.5 %; Eosinophils # 0.4 K/mcL (0.0-0.6); Eosinophils % 4.2 %; Immature Granulocytes % 1.6 % (0-4); Lymphocytes % 20.9 %; Mean Corpuscular HGB Conc 36.3 g/dL (31.6-35.5); Mean Corpuscular Hemoglobin 28.1 pg (28.0-33.3); Mean Corpuscular Volume 77.4 fL (83.0-100.0); Mean Platelet Volume 10.7 fL (9.4-12.4); Monocytes # 0.7 K/mcL (0.0-1.3); Monocytes % 6.8 %; Neutrophils # 6.4 K/mcL (1.6-8.9); Platelet Count 254 K/mcL (140-400); Red Blood Count 4.91 M/mcL (4.19-5.50); Red Cell Distribution Width 14.2 % (11.5-14.5); White Blood Count 9.7 K/mcL (4.3-11.1)
[2021-07-10 00:11] LABS: Hemoglobin 13.8 g/dL (12.9-16.9)
[2021-07-10 00:14] LABS: VBG HCO3 29 mEq/L (21-27); VBG PCO2 49 mmHg (41-51); VBG PH 7.38 pH Units (7.32-7.42); VBG PO2 56 mmHg (25-50)
[2021-07-10 00:56] LABS: Alanine Aminotransferase 20 Units/L (7-52); Albumin/Globulin Ratio 1.4 (1.1-2.2); Alkaline Phosphatase 51 Units/L (34-104); Amylase 980 Units/L (29-103); Aspartate Amino Transferase 40 Units/L (13-39); BUN/Creatinine Ratio 14 (6-26); Bilirubin,Direct 0.1 mg/dL (0.0-0.2); Bilirubin,Indirect 0.1 mg/dL (0.0-1.0); Bilirubin,Total 0.2 mg/dL (0.3-1.0); Blood Urea Nitrogen 20 mg/dL (6-20); Calcium 9.1 mg/dL (8.6-10.3); Carbon Dioxide 27 mEq/L (23-29); Chloride 92 mEq/L (98-107); Globulin 2.8 g/dL (2.4-3.5); Glucose 180 mg/dL (70-105); Lipase > 1800 Units/L (11-82); Osmolality,Calculated 271 (280-300); Potassium 4.5 mEq/L (3.5-5.1); Sodium 127 mEq/L (136-145); Total Protein 6.8 g/dL (6.4-8.9); eGFR For African Americans > 60 (> 60); eGFR For Non-African Americans 54 (> 60)
[2021-07-10] MEDS ORDERED: *HR* HYDROmorphone (PF) 1 MG/ML SYRINGE IVP ONE ×3 (03:20→12:26)
[2021-07-10] MEDS ORDERED: 0.9 % Sodium Chloride 1,000 ML IV SCH (04:00)
[2021-07-10 08:46] LABS: Influenza A PCR Negative (Negative); Influenza B PCR Negative (Negative); Resp. Syncytial Virus PCR Negative (Negative)
[2021-07-10 09:53] LABS: SARS-CoV-2 by PCR (In House) Negative (Negative)
[2021-07-10] MEDS ORDERED: Morphine Sulfate 2 MG/ML SYRINGE IVP PRN (12:36)
[2021-07-10] MEDS ORDERED: Ondansetron 4 MG/2 ML VIAL IVP PRN (12:39)
[2021-07-10] MEDS ORDERED: Naloxone 0.4 MG/ML INJ IVP PRN (12:39)
[2021-07-10] MEDS ORDERED: *HR* Dextrose 50 % in Water (Syg) 50 ML SYRINGE IVP PRN (12:44)
[2021-07-10] MEDS ORDERED: Ringers Solution, Lactated 1,000 ML IVC SCH (13:30)
[2021-07-10] MEDS ORDERED: gemfibroziL 600 MG TABLET PO SCH (16:30)
[2021-07-10] MEDS: *HR* Heparin 5,000 UNIT/ML VIAL SQ SCH ×2 (16:32→22:20)
[2021-07-10 17:26] LABS: BUN/Creatinine Ratio 10 (6-26); Blood Urea Nitrogen 9 mg/dL (6-20); Calcium 8.4 mg/dL (8.6-10.3); Carbon Dioxide 27 mEq/L (23-29); Chloride 99 mEq/L (98-107); Glucose 155 mg/dL (70-105); Osmolality,Calculated 276 (280-300); Sodium 132 mEq/L (136-145); eGFR For African Americans > 60 (> 60); eGFR For Non-African Americans > 60 (> 60)
[2021-07-10] MEDS: D10% in Water 500 ML IVC SCH ×2 (18:11→21:39)
[2021-07-10 23:21] LABS: BUN/Creatinine Ratio 9 (6-26); Blood Urea Nitrogen 8 mg/dL (6-20); Calcium 8.1 mg/dL (8.6-10.3); Carbon Dioxide 26 mEq/L (23-29); Chloride 99 mEq/L (98-107); Glucose 131 mg/dL (70-105); Osmolality,Calculated 274 (280-300); Potassium 3.2 mEq/L (3.5-5.1); Sodium 132 mEq/L (136-145); eGFR For African Americans > 60 (> 60); eGFR For Non-African Americans > 60 (> 60)
[2021-07-11] MEDS: D10% in Water 500 ML IVC SCH (00:57)
[2021-07-11 02:26] VITALS: BP 106/72; PULSE 94; TEMP 98.4; O2SAT 94
== END 2021-07-11 02:40 | disposition short-term general hospital (02) ==
LOC: 3ANU 22:57 → EMEROOARM 22:57 → 3ANU 07-10 14:45
PROVIDERS: ADMIT Internal Medicine; ATTEND Internal Medicine

== ENCOUNTER 2022-01-06 06:30 | Inpatient (IN) ==
[2022-01-06] MEDS ORDERED: 0.9 % Sodium Chloride 1,000 ML IVC ONE (06:56)
[2022-01-06] MEDS ORDERED: Ondansetron 4 MG/2 ML VIAL IVP ONE (06:56)
[2022-01-06] MEDS ORDERED: *HR* FentaNYL (PF) 100 MCG/2 ML VIAL IVP ONE (06:56)
[2022-01-06] MEDS ORDERED: Metoclopramide 10 MG/2 ML VIAL IVP ONE (07:16)
[2022-01-06 07:38] LABS: Basophils % 0.3 %; Eosinophils # 0.2 K/mcL (0.0-0.6); Eosinophils % 1.5 %; Hematocrit 46.6 % (37.5-50.1); Hemoglobin 16.1 g/dL (12.9-16.9); Immature Granulocytes % 0.7 % (0-4); Lymphocytes # 1.5 K/mcL (0.6-4.6); Lymphocytes % 13.3 %; Mean Corpuscular HGB Conc 34.5 g/dL (31.6-35.5); Mean Corpuscular Hemoglobin 24.3 pg (28.0-33.3); Mean Corpuscular Volume 70.3 fL (83.0-100.0); Mean Platelet Volume 10.3 fL (9.4-12.4); Monocytes # 0.7 K/mcL (0.0-1.3); Monocytes % 6.3 %; Neutrophils # 8.9 K/mcL (1.6-8.9); Platelet Count 371 K/mcL (140-400); Red Blood Count 6.63 M/mcL (4.19-5.50); Red Cell Distribution Width 14.1 % (11.5-14.5); Segmented Neutrophils % 77.9 %; White Blood Count 11.5 K/mcL (4.3-11.1)
[2022-01-06] MEDS ORDERED: *HR* HYDROmorphone (PF) 1 MG/ML SYRINGE IVP ONE (08:00)
[2022-01-06 08:17] LABS: Bilirubin,Urine Negative (Negative); Blood,Urine Trace (Negative); Clarity,Urine Clear (Clear); Color,Urine Light-Yellow (Yellow); Glucose,Urine (UA) >=1000 mg/dL (Normal); Ketones,Urine 10 mg/dL (Negative); Leukocyte Esterase,Urine Small (Negative); Nitrite,Urine Negative (Negative); PH,Urine 6.5 pH Units (5.0-8.0); Protein,Urine 200 mg/dL (Neg-Trace); Specific Gravity,Urine 1.029 (1.010-1.025); Urobilinogen,Urine Normal (Normal); WBC,Urine 30-50 per hpf (0-3)
[2022-01-06 09:02] LABS: Alanine Aminotransferase 13 Units/L (7-52); Albumin 4.4 g/dL (3.5-5.7); Albumin/Globulin Ratio 1.2 (1.1-2.2); Alkaline Phosphatase 59 Units/L (34-104); Amylase 667 Units/L (29-103); Aspartate Amino Transferase 11 Units/L (13-39); BUN/Creatinine Ratio 16 (6-26); Bilirubin,Direct 0.1 mg/dL (0.0-0.2); Bilirubin,Indirect 0.8 mg/dL (0.0-1.0); Bilirubin,Total 0.9 mg/dL (0.3-1.0); Blood Urea Nitrogen 23 mg/dL (6-20); Calcium 10.1 mg/dL (8.6-10.3); Carbon Dioxide 20 mEq/L (23-29); Chloride 91 mEq/L (98-107); Globulin 3.7 g/dL (2.4-3.5); Glucose 460 mg/dL (70-105); Osmolality,Calculated 290 (280-300); Potassium 4.5 mEq/L (3.5-5.1); Sodium 128 mEq/L (136-145); Total Protein 8.1 g/dL (6.4-8.9); Troponin I < 0.03 ng/mL (< 0.04); eGFR For African Americans > 60 (> 60); eGFR For Non-African Americans 57 (> 60)
[2022-01-06 09:25] LABS: Lipase > 1800 Units/L (11-82)
[2022-01-06] MEDS ORDERED: Insulin Human Regular 10 UNIT in 0.9 % Sodium Chloride 10 ML IV ONE (09:50)
[2022-01-06] MEDS ORDERED: Naloxone 0.4 MG/ML INJ IVP PRN (09:56)
[2022-01-06] MEDS ORDERED: Dextrose 4 GM Chewable Tablets PO PRN ×2 (09:59)
[2022-01-06] MEDS ORDERED: *HR* Dextrose 50 % in Water (Syg) 50 ML SYRINGE IVP PRN (09:59)
[2022-01-06] MEDS ORDERED: D5% in Water 1,000 ML IVC PRN (09:59)
[2022-01-06] MEDS ORDERED: levoFLOXacin 750 MG/150 ML 750 MG/150 ML BAG IVPB ONE (10:00)
[2022-01-06] MEDS ORDERED: Ringers Solution, Lactated 1,000 ML IVC SCH (10:00)
[2022-01-06] MEDS ORDERED: Insulin LISPRO 300 UNITS/3 ML VIAL SUBQ SCH (12:00)
[2022-01-06] MEDS: Ondansetron 4 MG/2 ML VIAL IVP PRN ×2 (12:27→20:37)
[2022-01-06] MEDS: *HR* HYDROmorphone (PF) 1 MG/ML SYRINGE IVP PRN ×2 (12:27→18:24)
[2022-01-06 12:40] LABS: Triglycerides 2025 mg/dL (< 150)
[2022-01-06 12:41] LABS: Cholesterol 266 mg/dL (< 200)
[2022-01-06 12:48] LABS: Chol/HDL Ratio 10.6 (0-4.9); HDL Cholesterol 25 mg/dL (40-59)
[2022-01-06] MEDS ORDERED: tiZANidine 4 MG TABLET PO PRN (14:24)
[2022-01-06] MEDS ORDERED: Nitroglycerin 0.4 MG TAB.SUBL SL PRN (14:24)
[2022-01-06] MEDS: hydrOXYzine pamoate 25 MG CAPSULE PO SCH ×2 (15:35→22:24)
[2022-01-06] MEDS: *HR* Heparin 5,000 UNIT/ML VIAL SQ SCH (18:16)
[2022-01-06] MEDS: Pantoprazole 40 MG VIAL IVP SCH (18:16)
[2022-01-06] MEDS: D5% in Lactated Ringers 1,000 ML IVC SCH (22:02)
[2022-01-06] MEDS: traZODone 50 MG TABLET PO SCH (22:24)
[2022-01-06] MEDS: Cholecalciferol (D-3) 1,000 UNIT (25MCG) TABLET PO SCH (22:24)
[2022-01-06] MEDS: Folic Acid 1 MG TABLET PO SCH (22:38)
[2022-01-07] MEDS: *HR* HYDROmorphone (PF) 1 MG/ML SYRINGE IVP PRN ×2 (00:30→06:29)
[2022-01-07 02:09] LABS: Basophils % 0.3 %; Eosinophils # 0.1 K/mcL (0.0-0.6); Eosinophils % 0.4 %; Hematocrit 48.1 % (37.5-50.1); Hemoglobin 15.7 g/dL (12.9-16.9); Immature Granulocytes % 0.6 % (0-4); Lymphocytes # 1.3 K/mcL (0.6-4.6); Lymphocytes % 9.5 %; Mean Corpuscular HGB Conc 32.6 g/dL (31.6-35.5); Mean Corpuscular Hemoglobin 23.5 pg (28.0-33.3); Mean Platelet Volume 9.9 fL (9.4-12.4); Monocytes # 0.9 K/mcL (0.0-1.3); Monocytes % 6.7 %; Neutrophils # 11.2 K/mcL (1.6-8.9); Platelet Count 332 K/mcL (140-400); Red Blood Count 6.68 M/mcL (4.19-5.50); Red Cell Distribution Width 14.7 % (11.5-14.5); Segmented Neutrophils % 82.5 %; White Blood Count 13.5 K/mcL (4.3-11.1)
[2022-01-07 02:15] LABS: INR 1.2; Prothrombin Time 13.6 Seconds (9.4-12.1)
[2022-01-07 02:18] LABS: Activated Partial Thrombo Time 34.7 Seconds (26.0-36.0)
[2022-01-07 03:25] LABS: BUN/Creatinine Ratio 17 (6-26); Blood Urea Nitrogen 21 mg/dL (6-20); Calcium 9.8 mg/dL (8.6-10.3); Carbon Dioxide 25 mEq/L (23-29); Chloride 101 mEq/L (98-107); Glucose 111 mg/dL (70-105); Magnesium 1.7 mg/dL (1.6-2.6); Osmolality,Calculated 288 (280-300); Phosphorous 2.5 mg/dL (2.7-4.5); Potassium 3.3 mEq/L (3.5-5.1); Sodium 137 mEq/L (136-145); eGFR For African Americans > 60 (> 60); eGFR For Non-African Americans > 60 (> 60)
[2022-01-07] MEDS ORDERED: Insulin Human Regular 250 UNIT in 0.9 % Sodium Chloride 247.5 ML IVC SCH ×4 (05:00→11:30)
[2022-01-07] MEDS: *HR* Heparin 5,000 UNIT/ML VIAL SQ SCH ×2 (06:16→18:07)
[2022-01-07] MEDS: D5% in Lactated Ringers 1,000 ML IVC SCH (06:16)
[2022-01-07] MEDS: Pantoprazole 40 MG VIAL IVP SCH ×2 (06:17→18:07)
[2022-01-07] MEDS: ARIPiprazole 2 MG TABLET PO SCH (07:51)
[2022-01-07] MEDS: Folic Acid 1 MG TABLET PO SCH (07:52)
[2022-01-07] MEDS: hydrOXYzine pamoate 25 MG CAPSULE PO SCH ×2 (07:53→15:57)
[2022-01-07] MEDS: Cholecalciferol (D-3) 1,000 UNIT (25MCG) TABLET PO SCH (07:53)
[2022-01-07] MEDS: Fenofibrate 54 MG TABLET PO SCH (07:53)
[2022-01-07] MEDS ORDERED: Ringers Solution, Lactated 1,000 ML IVC SCH (08:15)
[2022-01-07] MEDS ORDERED: levoFLOXacin 750 MG/150 ML 750 MG/150 ML BAG IVPB SCH (09:00)
[2022-01-07] MEDS: Ondansetron 4 MG/2 ML VIAL IVP PRN ×2 (10:54→19:36)
[2022-01-07] MEDS: Ringers Solution, Lactated 1,000 ML IVC SCH (19:36)
[2022-01-07] MEDS: traZODone 50 MG TABLET PO SCH (20:13)
[2022-01-08] MEDS: Ringers Solution, Lactated 1,000 ML IVC SCH ×3 (00:38→11:37)
[2022-01-08] MEDS: Folic Acid 1 MG TABLET PO SCH ×2 (00:39→08:02)
[2022-01-08] MEDS: hydrOXYzine pamoate 25 MG CAPSULE PO SCH ×3 (00:39→14:26)
[2022-01-08] MEDS: Cholecalciferol (D-3) 1,000 UNIT (25MCG) TABLET PO SCH ×2 (00:40→08:01)
[2022-01-08 05:08] LABS: BUN/Creatinine Ratio 14 (6-26); Blood Urea Nitrogen 16 mg/dL (6-20); Carbon Dioxide 24 mEq/L (23-29); Chloride 98 mEq/L (98-107); Glucose 297 mg/dL (70-105); Magnesium 1.4 mg/dL (1.6-2.6); Osmolality,Calculated 284 (280-300); Phosphorous 2.6 mg/dL (2.7-4.5); Potassium 4.4 mEq/L (3.5-5.1); Sodium 131 mEq/L (136-145); Triglycerides 798 mg/dL (< 150); eGFR For African Americans > 60 (> 60); eGFR For Non-African Americans > 60 (> 60)
[2022-01-08] MEDS: Pantoprazole 40 MG VIAL IVP SCH (05:30)
[2022-01-08] MEDS: *HR* Heparin 5,000 UNIT/ML VIAL SQ SCH ×2 (05:30→17:48)
[2022-01-08 07:55] VITALS: O2SAT 97
[2022-01-08] MEDS: Fenofibrate 54 MG TABLET PO SCH (08:01)
[2022-01-08] MEDS: ARIPiprazole 2 MG TABLET PO SCH (08:01)
[2022-01-08] MEDS ORDERED: levoFLOXacin 500 MG TABLET PO SCH (09:00)
[2022-01-08 12:05] VITALS: BP 100/64; PULSE 98; TEMP 98.1
[2022-01-08] MEDS: Insulin LISPRO 300 UNITS/3 ML VIAL SUBQ SCH ×2 (12:25→17:00)
[2022-01-08] MEDS ORDERED: Insulin LISPRO 300 UNITS/3 ML VIAL SUBQ SCH (21:00)
== END 2022-01-08 18:13 | disposition home or self-care (01) | DRG 439 ==
LOC: 3ANU 06:30 → EMEROOARM 06:30 → 3ANU 12:15
PROVIDERS: ADMIT Internal Medicine; ATTEND Internal Medicine

== ENCOUNTER 2022-02-28 22:50 | Inpatient (IN) ==
[2022-02-28 23:26] LABS: Bilirubin,Urine Negative (Negative); Blood,Urine Trace (Negative); Clarity,Urine Clear (Clear); Color,Urine Light-Yellow (Yellow); Glucose,Urine (UA) >=1000 mg/dL (Normal); Ketones,Urine 10 mg/dL (Negative); Leukocyte Esterase,Urine Large (Negative); Mucus,Urine Few per lpf (None-Few); Nitrite,Urine Negative (Negative); Protein,Urine 100 mg/dL (Neg-Trace); RBC,Urine 15-30 per hpf (0-3); Specific Gravity,Urine > 1.030 (1.010-1.025); Urobilinogen,Urine Normal (Normal); WBC,Urine TNTC per hpf (0-3)
[2022-02-28 23:29] LABS: Basophils % 0.3 %; Eosinophils # 0.1 K/mcL (0.0-0.6); Eosinophils % 0.3 %; Hematocrit 46.1 % (37.5-50.1); Hemoglobin 15.9 g/dL (12.9-16.9); Immature Granulocytes % 0.6 % (0-4); Lymphocytes # 0.9 K/mcL (0.6-4.6); Lymphocytes % 5.8 %; Mean Corpuscular HGB Conc 34.5 g/dL (31.6-35.5); Mean Corpuscular Hemoglobin 24.7 pg (28.0-33.3); Mean Corpuscular Volume 71.6 fL (83.0-100.0); Mean Platelet Volume 10.1 fL (9.4-12.4); Monocytes # 0.7 K/mcL (0.0-1.3); Monocytes % 4.7 %; Platelet Count 278 K/mcL (140-400); Red Blood Count 6.44 M/mcL (4.19-5.50); Red Cell Distribution Width 14.9 % (11.5-14.5); Segmented Neutrophils % 88.3 %; White Blood Count 14.8 K/mcL (4.3-11.1)
[2022-02-28] MEDS ORDERED: Ringers Solution, Lactated 2,000 ML IVC ONE (23:31)
[2022-02-28] MEDS ORDERED: Ondansetron 4 MG/2 ML VIAL IVP PRN (23:32)
[2022-02-28] MEDS ORDERED: Morphine Sulfate 2 MG/ML SYRINGE IVP ONE (23:32)
[2022-02-28] MEDS ORDERED: Isovue-370 500 ML BOTTLE IVP ONE (23:33)
[2022-02-28 23:40] LABS: INR 1.1; Prothrombin Time 11.7 Seconds (9.4-12.1)
[2022-02-28 23:42] LABS: Activated Partial Thrombo Time 30.4 Seconds (26.0-36.0)
[2022-03-01] MEDS ORDERED: cefTRIAXone 1,000 MG in 0.9 % Sodium Chloride 10 ML IVP ONE (00:27)
[2022-03-01 00:54] LABS: Alanine Aminotransferase 17 Units/L (7-52); Albumin 4.1 g/dL (3.5-5.7); Albumin/Globulin Ratio 1.2 (1.1-2.2); Alkaline Phosphatase 46 Units/L (34-104); Aspartate Amino Transferase 16 Units/L (13-39); BUN/Creatinine Ratio 18 (6-26); Bilirubin,Direct 0.1 mg/dL (0.0-0.2); Bilirubin,Indirect 0.6 mg/dL (0.0-1.0); Bilirubin,Total 0.7 mg/dL (0.3-1.0); Blood Urea Nitrogen 26 mg/dL (6-20); Calcium 9.1 mg/dL (8.6-10.3); Carbon Dioxide 17 mEq/L (23-29); Chloride 92 mEq/L (98-107); Globulin 3.5 g/dL (2.4-3.5); Glucose 411 mg/dL (70-105); Lipase > 1800 Units/L (11-82); Osmolality,Calculated 284 (280-300); Potassium 4.1 mEq/L (3.5-5.1); Sodium 126 mEq/L (136-145); Total Protein 7.6 g/dL (6.4-8.9); Troponin I < 0.03 ng/mL (< 0.04); eGFR For African Americans > 60 (> 60); eGFR For Non-African Americans 54 (> 60)
[2022-03-01] MEDS ORDERED: Morphine Sulfate 2 MG/ML SYRINGE IVP ONE (03:25)
[2022-03-01] MEDS ORDERED: Ondansetron 4 MG/2 ML VIAL IVP PRN ×2 (03:25→05:02)
[2022-03-01] MEDS ORDERED: *HR* Dextrose 50 % in Water (Syg) 50 ML SYRINGE IVP PRN ×3 (03:33→09:20)
[2022-03-01] MEDS ORDERED: 0.9 % Sodium Chloride w KCl 20 MEQ/1,000 ML MLS IVC SCH (03:45)
[2022-03-01 04:37] LABS: VBG HCO3 26 mEq/L (21-27); VBG Ionized Calcium 1.12 mmol/L (1.15-1.35); VBG PCO2 48 mmHg (41-51); VBG PH 7.33 pH Units (7.32-7.42); VBG PO2 43 mmHg (25-50)
[2022-03-01 04:42] LABS: ABG Base Excess 2 mEq/L (-2 to 3); ABG HCO3 26 mEq/L (21-27); ABG Oxygen Saturation 96 % (95-98); ABG PCO2 39 mmHg (35-45); ABG PH 7.44 pH Units (7.32-7.45); ABG PO2 78 mmHg (85-104); ABG TCO2 28 mEq/L (20-26)
[2022-03-01 04:43] LABS: Basophils % 0.3 %; Eosinophils # 0.1 K/mcL (0.0-0.6); Eosinophils % 0.5 %; Hematocrit 46.5 % (37.5-50.1); Hemoglobin 15.6 g/dL (12.9-16.9); Immature Granulocytes % 0.5 % (0-4); Lymphocytes # 0.9 K/mcL (0.6-4.6); Mean Corpuscular HGB Conc 33.5 g/dL (31.6-35.5); Mean Corpuscular Hemoglobin 24.3 pg (28.0-33.3); Mean Corpuscular Volume 72.4 fL (83.0-100.0); Mean Platelet Volume 10.4 fL (9.4-12.4); Monocytes # 0.6 K/mcL (0.0-1.3); Monocytes % 4.8 %; Neutrophils # 10.6 K/mcL (1.6-8.9); Platelet Count 257 K/mcL (140-400); Red Blood Count 6.42 M/mcL (4.19-5.50); Red Cell Distribution Width 15.4 % (11.5-14.5); Segmented Neutrophils % 86.9 %; White Blood Count 12.2 K/mcL (4.3-11.1)
[2022-03-01] MEDS ORDERED: Naloxone 0.4 MG/ML INJ IVP PRN (05:02)
[2022-03-01] MEDS ORDERED: Melatonin 3 MG TABLET PO PRN (05:02)
[2022-03-01] MEDS ORDERED: Calcium Gluconate 1gm/50mL 1 GM/50 ML BAG IVPB ONE (05:23)
[2022-03-01] MEDS ORDERED: Potassium Chloride Elixir 20 MEQ/15 ML UDC PO ONE (05:48)
[2022-03-01 06:06] LABS: C-Reactive Protein 60 mg/L (Less than 10); Chol/HDL Ratio 14.3 (0-4.9); Cholesterol 344 mg/dL (< 200); HDL Cholesterol 24 mg/dL (40-59); Lactate Dehydrogenase 166 Units/L (140-271); Magnesium 1.4 mg/dL (1.6-2.6); Phosphorous 2.8 mg/dL (2.7-4.5); Triglycerides 2711 mg/dL (< 150)
[2022-03-01 06:47] LABS: VBG Ionized Calcium 1.14 mmol/L (1.15-1.35)
[2022-03-01] MEDS: Ipratropium/Albuterol Neb 3 ML IH SCH ×5 (07:27→23:37)
[2022-03-01] MEDS ORDERED: D5% in Water 1,000 ML IVC PRN (07:36)
[2022-03-01] MEDS ORDERED: Ringers Solution, Lactated 1,000 ML IVC ONE (07:39)
[2022-03-01] MEDS ORDERED: cefTRIAXone 1,000 MG in 0.9 % Sodium Chloride Mini Bag 100 ML IVPB ONE (07:41)
[2022-03-01] MEDS ORDERED: 0.9 % Sodium Chloride 1,000 ML IVC ONE (07:43)
[2022-03-01] MEDS ORDERED: Piperacillin/Tazobactam 3.375 GM in 0.9 % Sodium Chloride Mini Bag 100 ML IVPB SCH (08:00)
[2022-03-01] MEDS: Ertapenem 1,000 MG in 0.9 % Sodium Chloride Mini Bag 100 ML IVPB SCH (08:24)
[2022-03-01 08:34] LABS: Estimated Average Glucose 324 mg/dl; Hemoglobin A1C 12.9 %
[2022-03-01] MEDS ORDERED: Ringers Solution, Lactated 1,000 ML ONE (08:56)
[2022-03-01] MEDS: 0.9 % Sodium Chloride w KCl 20 MEQ/1,000 ML MLS IVC SCH ×3 (09:32→18:31)
[2022-03-01] MEDS: *HR* Heparin 5,000 UNIT/ML VIAL SQ SCH ×2 (09:32→18:32)
[2022-03-01 11:48] LABS: Troponin I < 0.03 ng/mL (< 0.04)
[2022-03-01 12:29] LABS: BUN/Creatinine Ratio 13 (6-26); Blood Urea Nitrogen 17 mg/dL (6-20); Calcium 8.7 mg/dL (8.6-10.3); Carbon Dioxide 23 mEq/L (23-29); Chloride 104 mEq/L (98-107); Glucose 199 mg/dL (70-105); Osmolality,Calculated 289 (280-300); Potassium 4.3 mEq/L (3.5-5.1); Sodium 136 mEq/L (136-145); eGFR For African Americans > 60 (> 60); eGFR For Non-African Americans > 60 (> 60)
[2022-03-01 14:02] LABS: Magnesium 1.9 mg/dL (1.6-2.6)
[2022-03-01] MEDS: *HR* Dextrose 50 % in Water (Syg) 50 ML SYRINGE IVP PRN ×2 (14:43→23:40)
[2022-03-01 23:07] LABS: BUN/Creatinine Ratio 12 (6-26); Blood Urea Nitrogen 12 mg/dL (6-20); Calcium 8.1 mg/dL (8.6-10.3); Carbon Dioxide 23 mEq/L (23-29); Chloride 103 mEq/L (98-107); Glucose 133 mg/dL (70-105); Osmolality,Calculated 274 (280-300); Potassium 3.8 mEq/L (3.5-5.1); Sodium 131 mEq/L (136-145); eGFR For African Americans > 60 (> 60); eGFR For Non-African Americans > 60 (> 60)
[2022-03-02] MEDS ORDERED: 0.9 % Sodium Chloride w KCl 20 MEQ/1,000 ML MLS IVC SCH (00:45)
[2022-03-02] MEDS: *HR* Dextrose 50 % in Water (Syg) 50 ML SYRINGE IVP PRN ×3 (00:49→06:08)
[2022-03-02 02:03] LABS: Basophils % 0.3 %; Eosinophils # 0.2 K/mcL (0.0-0.6); Eosinophils % 2.2 %; Hematocrit 40.1 % (37.5-50.1); Immature Granulocytes % 0.7 % (0-4); Lymphocytes # 1.3 K/mcL (0.6-4.6); Lymphocytes % 12.1 %; Mean Corpuscular HGB Conc 32.4 g/dL (31.6-35.5); Mean Corpuscular Hemoglobin 24.8 pg (28.0-33.3); Mean Corpuscular Volume 76.5 fL (83.0-100.0); Monocytes # 0.7 K/mcL (0.0-1.3); Monocytes % 6.5 %; Neutrophils # 8.1 K/mcL (1.6-8.9); Platelet Count 187 K/mcL (140-400); Red Blood Count 5.24 M/mcL (4.19-5.50); Red Cell Distribution Width 14.9 % (11.5-14.5); Segmented Neutrophils % 78.2 %; White Blood Count 10.3 K/mcL (4.3-11.1)
[2022-03-02 02:04] LABS: VBG Ionized Calcium 1.11 mmol/L (1.15-1.35)
[2022-03-02 02:09] LABS: INR 1.2
[2022-03-02 02:11] LABS: Activated Partial Thrombo Time 25.3 Seconds (26.0-36.0)
[2022-03-02] MEDS: *HR* Heparin 5,000 UNIT/ML VIAL SQ SCH ×2 (02:18→08:54)
[2022-03-02 02:19] LABS: Alanine Aminotransferase 7 Units/L (7-52); Alkaline Phosphatase 35 Units/L (34-104); Aspartate Amino Transferase 10 Units/L (13-39); BUN/Creatinine Ratio 10 (6-26); Bilirubin,Total 0.7 mg/dL (0.3-1.0); Blood Urea Nitrogen 11 mg/dL (6-20); Calcium 8.1 mg/dL (8.6-10.3); Carbon Dioxide 22 mEq/L (23-29); Chloride 104 mEq/L (98-107); Globulin 3.1 g/dL (2.4-3.5); Glucose 164 mg/dL (70-105); Magnesium 1.7 mg/dL (1.6-2.6); Osmolality,Calculated 277 (280-300); Phosphorous 1.8 mg/dL (2.7-4.5); Potassium 3.8 mEq/L (3.5-5.1); Sodium 132 mEq/L (136-145); Total Protein 6.1 g/dL (6.4-8.9); eGFR For African Americans > 60 (> 60); eGFR For Non-African Americans > 60 (> 60)
[2022-03-02] MEDS: Ipratropium/Albuterol Neb 3 ML IH SCH ×2 (03:47→07:41)
[2022-03-02 03:49] VITALS: O2SAT 95
[2022-03-02 07:07] VITALS: BP 101/63; TEMP 98
[2022-03-02] MEDS: Ertapenem 1,000 MG in 0.9 % Sodium Chloride Mini Bag 100 ML IVPB SCH (08:53)
[2022-03-02] MEDS ORDERED: cefTRIAXone 2,000 MG in 0.9 % Sodium Chloride Mini Bag 100 ML IVPB SCH (09:00)
[2022-03-02] MEDS ORDERED: Ipratropium/Albuterol Neb 3 ML IH PRN (09:02)
[2022-03-02] MEDS ORDERED: Fenofibrate 54 MG TABLET PO SCH (09:15)
[2022-03-02] MEDS ORDERED: ARIPiprazole 5 MG TABLET PO SCH (09:15)
[2022-03-02 09:43] VITALS: PULSE 122
== END 2022-03-02 10:08 | disposition left against medical advice (07) | DRG 871 ==
LOC: 2NNU 22:50 → EMEROOARM 22:50 → SUATTDRO 03-01 04:05 → 2NNU 03-01 04:48
PROVIDERS: ADMIT Internal Medicine; ATTEND Internal Medicine

== ENCOUNTER 2022-06-25 15:10 | Inpatient (IN) ==
[2022-06-25] MEDS ORDERED: Morphine Sulfate 2 MG/ML SYRINGE IVP ONE (18:27)
[2022-06-25] MEDS ORDERED: 0.9 % Sodium Chloride 1,000 ML IVC ONE ×2 (18:27→20:29)
[2022-06-25] MEDS ORDERED: Metoclopramide 10 MG/2 ML VIAL IVP ONE (18:27)
[2022-06-25 18:38] LABS: Basophils # 0.1 K/mcL (0.0-0.2); Basophils % 0.6 %; Eosinophils # 0.1 K/mcL (0.0-0.6); Eosinophils % 0.9 %; Hematocrit 51.1 % (37.5-50.1); Immature Granulocytes % 0.7 % (0-4); Lymphocytes # 1.2 K/mcL (0.6-4.6); Lymphocytes % 8.5 %; Mean Corpuscular Volume 75.3 fL (83.0-100.0); Mean Platelet Volume 9.8 fL (9.4-12.4); Monocytes # 0.8 K/mcL (0.0-1.3); Monocytes % 5.6 %; Neutrophils # 11.4 K/mcL (1.6-8.9); Platelet Count 335 K/mcL (140-400); Red Blood Count 6.79 M/mcL (4.19-5.50); Segmented Neutrophils % 83.7 %; White Blood Count 13.6 K/mcL (4.3-11.1)
[2022-06-25 18:40] LABS: Blood Urea Nitrogen 21 mg/dL (6-20); Carbon Dioxide 18 mEq/L (23-29); Chloride 88 mEq/L (98-107); Glucose 463 mg/dL (70-105); Lipase 1442 Units/L (11-82); Osmolality,Calculated 283 (280-300); Potassium 5.3 mEq/L (3.5-5.1); Troponin I < 0.03 ng/mL (< 0.04)
[2022-06-25 18:42] LABS: Hemoglobin 18.1 g/dL (12.9-16.9); Mean Corpuscular Hemoglobin 26.7 pg (28.0-33.3)
[2022-06-25 18:43] LABS: Mean Corpuscular HGB Conc 35.4 g/dL (31.6-35.5)
[2022-06-25 18:57] LABS: Sodium 125 mEq/L (136-145)
[2022-06-25 19:03] LABS: Bacteria,Urine Few per hpf (None-Few); Bilirubin,Urine Negative (Negative); Blood,Urine Moderate (Negative); Clarity,Urine Clear (Clear); Color,Urine Light-Yellow (Yellow); Glucose,Urine (UA) >=1000 mg/dL (Normal); Ketones,Urine 40 mg/dL (Negative); Leukocyte Esterase,Urine Moderate (Negative); Nitrite,Urine Negative (Negative); Protein,Urine >=300 mg/dL (Neg-Trace); RBC,Urine 15-30 per hpf (0-3); Urobilinogen,Urine Normal (Normal); WBC,Urine 50-100 per hpf (0-3)
[2022-06-25 19:34] LABS: Alanine Aminotransferase 13 Units/L (7-52); Albumin 4.2 g/dL (3.5-5.7); Albumin/Globulin Ratio 1.3 (1.1-2.2); Alkaline Phosphatase 66 Units/L (34-104); Amylase 416 Units/L (29-103); Aspartate Amino Transferase 11 Units/L (13-39); BUN/Creatinine Ratio 11 (6-26); Bilirubin,Indirect 0.6 mg/dL (0.0-1.0); Bilirubin,Total 0.6 mg/dL (0.3-1.0); Calcium 9.4 mg/dL (8.6-10.3); Globulin 3.3 g/dL (2.4-3.5); Total Protein 7.5 g/dL (6.4-8.9)
[2022-06-25] MEDS ORDERED: cefTRIAXone 1,000 MG in Water for inj. (sterile) 10 ML IVP ONE (19:56)
[2022-06-25] MEDS ORDERED: Iopamidol - 370 500 ML MLS IVP ONE (20:32)
[2022-06-25 22:51] LABS: Triglycerides 3454 mg/dL (< 150)
[2022-06-25] MEDS ORDERED: Naloxone 0.4 MG/ML INJ IVP PRN (23:56)
[2022-06-25] MEDS ORDERED: Dextrose Gel 15 GM/37.5 ML TUBE PO PRN ×2 (23:56)
[2022-06-25] MEDS ORDERED: *HR* Dextrose 50 % in Water (Syg) 50 ML SYRINGE IVP PRN (23:56)
[2022-06-25] MEDS ORDERED: D5% in Water 1,000 ML IVC PRN (23:56)
[2022-06-26] MEDS ORDERED: Ondansetron 4 MG/2 ML VIAL IVP PRN (00:02)
[2022-06-26] MEDS ORDERED: Melatonin 3 MG TABLET PO PRN (00:02)
[2022-06-26] MEDS ORDERED: Acetaminophen IV 1,000 MG/100 ML BAG IVPB PRN (00:02)
[2022-06-26] MEDS ORDERED: Nitroglycerin 0.4 MG TAB.SUBL SL PRN (00:41)
[2022-06-26] MEDS ORDERED: D5% in Water 1,000 ML IVC SCH ×3 (00:45→10:45)
[2022-06-26] MEDS: 0.9 % Sodium Chloride 1,000 ML IVC SCH ×2 (01:06→09:14)
[2022-06-26] MEDS: traZODone 50 MG TABLET PO SCH ×2 (01:44→20:57)
[2022-06-26] MEDS: Morphine Sulfate 2 MG/ML SYRINGE IVP PRN ×2 (01:44→06:41)
[2022-06-26] MEDS ORDERED: Saliva Stimulant 44.3ml BOTTLE PO PRN (02:22)
[2022-06-26 04:42] LABS: Basophils % 0.3 %; Eosinophils % 1.9 %
[2022-06-26 04:43] LABS: Eosinophils # 0.2 K/mcL (0.0-0.6); Hematocrit 42.3 % (37.5-50.1); Immature Granulocytes % 0.6 % (0-4); Lymphocytes # 1.3 K/mcL (0.6-4.6); Lymphocytes % 10.9 %; Mean Corpuscular Volume 73.7 fL (83.0-100.0); Mean Platelet Volume 10.2 fL (9.4-12.4); Monocytes # 0.7 K/mcL (0.0-1.3); Neutrophils # 9.6 K/mcL (1.6-8.9); Platelet Count 231 K/mcL (140-400); Red Blood Count 5.74 M/mcL (4.19-5.50); Red Cell Distribution Width 14.3 % (11.5-14.5); Segmented Neutrophils % 80.3 %
[2022-06-26 05:25] LABS: Hemoglobin 14.5 g/dL (12.9-16.9); Mean Corpuscular Hemoglobin 24.7 pg (28.0-33.3)
[2022-06-26 05:26] LABS: Mean Corpuscular HGB Conc 33.4 g/dL (31.6-35.5)
[2022-06-26 05:55] LABS: Calcium 7.9 mg/dL (8.6-10.3); Magnesium 1.5 mg/dL (1.6-2.6); Phosphorous 2.3 mg/dL (2.7-4.5); Potassium 3.8 mEq/L (3.5-5.1)
[2022-06-26] MEDS ORDERED: *HR* Heparin 5,000 UNIT/ML VIAL SQ SCH (06:00)
[2022-06-26] MEDS: Acetaminophen IV 1,000 MG/100 ML BAG IVPB SCH ×2 (06:13→12:54)
[2022-06-26] MEDS: hydrOXYzine pamoate 25 MG CAPSULE PO SCH ×3 (09:15→20:56)
[2022-06-26] MEDS: ARIPiprazole 5 MG TABLET PO SCH (09:15)
[2022-06-26] MEDS: Fenofibrate 54 MG TABLET PO SCH (09:15)
[2022-06-26] MEDS: ICOSAPENT ETHYL 1 GM PO SCH ×2 (09:16→21:24)
[2022-06-26] MEDS ORDERED: Ringers Solution, Lactated 1,000 ML IVC SCH (13:00)
[2022-06-26] MEDS ORDERED: D5% in 0.45% NACL w KCl 20 MEQ/1,000 ML MLS IVC SCH (13:45)
[2022-06-26 14:48] LABS: BUN/Creatinine Ratio 16 (6-26); Blood Urea Nitrogen 16 mg/dL (6-20); Calcium 8.2 mg/dL (8.6-10.3); Carbon Dioxide 19 mEq/L (23-29); Chloride 99 mEq/L (98-107); Glucose 134 mg/dL (70-105); Osmolality,Calculated 265 (280-300); Potassium 4.7 mEq/L (3.5-5.1); Sodium 126 mEq/L (136-145)
[2022-06-26] MEDS: *HR* Heparin 5,000 UNIT/ML VIAL SQ SCH ×2 (14:54→20:57)
[2022-06-26] MEDS: D5% in 0.45% NACL w KCl 20 MEQ/1,000 ML MLS IVC SCH ×2 (17:33→21:23)
[2022-06-26] MEDS: tiZANidine 4 MG TABLET PO PRN (20:57)
[2022-06-27 02:25] LABS: Basophils % 0.2 %; Eosinophils # 0.3 K/mcL (0.0-0.6); Eosinophils % 1.7 %; Hematocrit 40.9 % (37.5-50.1); Immature Granulocytes % 0.6 % (0-4); Lymphocytes # 1.4 K/mcL (0.6-4.6); Lymphocytes % 9.3 %; Mean Corpuscular HGB Conc 34.5 g/dL (31.6-35.5); Mean Corpuscular Hemoglobin 25.6 pg (28.0-33.3); Mean Corpuscular Volume 74.2 fL (83.0-100.0); Mean Platelet Volume 10.6 fL (9.4-12.4); Monocytes % 6.7 %; Neutrophils # 11.8 K/mcL (1.6-8.9); Platelet Count 199 K/mcL (140-400); Red Blood Count 5.51 M/mcL (4.19-5.50); Red Cell Distribution Width 14.5 % (11.5-14.5); Segmented Neutrophils % 81.5 %; White Blood Count 14.5 K/mcL (4.3-11.1)
[2022-06-27 02:26] LABS: Hemoglobin 14.1 g/dL (12.9-16.9)
[2022-06-27 03:09] LABS: BUN/Creatinine Ratio 10 (6-26); Blood Urea Nitrogen 17 mg/dL (6-20); Calcium 8.3 mg/dL (8.6-10.3); Carbon Dioxide 18 mEq/L (23-29); Chloride 103 mEq/L (98-107); Glucose 86 mg/dL (70-105); Magnesium 1.8 mg/dL (1.6-2.6); Osmolality,Calculated 269 (280-300); Phosphorous 2.3 mg/dL (2.7-4.5); Potassium 4.7 mEq/L (3.5-5.1); Sodium 129 mEq/L (136-145); Triglycerides > 5000 mg/dL (< 150)
[2022-06-27] MEDS: D5% in 0.45% NACL w KCl 20 MEQ/1,000 ML MLS IVC SCH ×2 (04:51→11:52)
[2022-06-27] MEDS: *HR* Heparin 5,000 UNIT/ML VIAL SQ SCH ×3 (05:39→19:31)
[2022-06-27] MEDS: Fenofibrate 54 MG TABLET PO SCH (08:10)
[2022-06-27] MEDS: hydrOXYzine pamoate 25 MG CAPSULE PO SCH ×3 (08:10→19:30)
[2022-06-27] MEDS: ARIPiprazole 5 MG TABLET PO SCH (08:10)
[2022-06-27] MEDS: ICOSAPENT ETHYL 1 GM PO SCH (08:11)
[2022-06-27] MEDS: cefTRIAXone 1,000 MG in Water for inj. (sterile) 10 ML IVP SCH (08:11)
[2022-06-27] MEDS: D10% in Water 500 ML IVC SCH ×3 (12:39→22:25)
[2022-06-27] MEDS: Zinc Sulfate 220 MG CAPSULE PO SCH (12:41)
[2022-06-27] MEDS: Folic Acid 1 MG TABLET PO SCH ×2 (12:42→19:31)
[2022-06-27] MEDS: Morphine Sulfate 2 MG/ML SYRINGE IVP PRN (13:13)
[2022-06-27] MEDS ORDERED: *HR* OxyCODONE Immed Rel 5 MG TABLET PO PRN (14:47)
[2022-06-27 17:01] LABS: Calcium 8.5 mg/dL (8.6-10.3); Potassium 4.7 mEq/L (3.5-5.1)
[2022-06-27] MEDS: traZODone 50 MG TABLET PO SCH (19:30)
[2022-06-28] MEDS: D10% in Water 500 ML IVC SCH ×4 (03:18→20:48)
[2022-06-28 03:25] LABS: Basophils % 0.3 %; Immature Granulocytes % 0.6 % (0-4); Mean Corpuscular Hemoglobin 25.6 pg (28.0-33.3); Red Cell Distribution Width 14.6 % (11.5-14.5)
[2022-06-28 03:27] LABS: Eosinophils # 0.3 K/mcL (0.0-0.6); Eosinophils % 3.2 %; Hematocrit 38.1 % (37.5-50.1); Hemoglobin 12.8 g/dL (12.9-16.9); Immature Platelets 6.5 % (1.1-6.1); Lymphocytes # 1.2 K/mcL (0.6-4.6); Lymphocytes % 13.1 %; Mean Corpuscular HGB Conc 33.6 g/dL (31.6-35.5); Mean Corpuscular Volume 76.2 fL (83.0-100.0); Mean Platelet Volume 10.9 fL (9.4-12.4); Monocytes # 0.6 K/mcL (0.0-1.3); Monocytes % 6.5 %; Platelet Count 168 K/mcL (140-400); Segmented Neutrophils % 76.3 %; White Blood Count 9.2 K/mcL (4.3-11.1)
[2022-06-28 03:35] LABS: BUN/Creatinine Ratio 8 (6-26); Blood Urea Nitrogen 8 mg/dL (6-20); Calcium 8.2 mg/dL (8.6-10.3); Carbon Dioxide 21 mEq/L (23-29); Chloride 105 mEq/L (98-107); Glucose 81 mg/dL (70-105); Osmolality,Calculated 271 (280-300); Potassium 3.7 mEq/L (3.5-5.1); Sodium 132 mEq/L (136-145)
[2022-06-28] MEDS: tiZANidine 4 MG TABLET PO PRN ×2 (04:05→22:14)
[2022-06-28] MEDS: *HR* Heparin 5,000 UNIT/ML VIAL SQ SCH ×3 (05:58→21:29)
[2022-06-28] MEDS: hydrOXYzine pamoate 25 MG CAPSULE PO SCH ×3 (08:09→19:57)
[2022-06-28] MEDS: Folic Acid 1 MG TABLET PO SCH ×2 (08:09→19:57)
[2022-06-28] MEDS: cefTRIAXone 1,000 MG in Water for inj. (sterile) 10 ML IVP SCH (08:10)
[2022-06-28] MEDS: Fenofibrate 54 MG TABLET PO SCH (08:10)
[2022-06-28] MEDS: Zinc Sulfate 220 MG CAPSULE PO SCH (08:56)
[2022-06-28 11:07] VITALS: TEMP 98.9
[2022-06-28] MEDS: traZODone 50 MG TABLET PO SCH (19:57)
[2022-06-29 00:46] VITALS: BP 106/65; PULSE 85; O2SAT 93
[2022-06-29] MEDS: D10% in Water 500 ML IVC SCH ×2 (02:06→07:18)
[2022-06-29 04:11] LABS: Basophils # 0.1 K/mcL (0.0-0.2); Basophils % 0.7 %; Eosinophils # 0.5 K/mcL (0.0-0.6); Eosinophils % 6.6 %; Hematocrit 35.1 % (37.5-50.1); Hemoglobin 11.4 g/dL (12.9-16.9); Immature Granulocytes % 1.6 % (0-4); Lymphocytes # 1.7 K/mcL (0.6-4.6); Lymphocytes % 23.8 %; Mean Corpuscular HGB Conc 32.5 g/dL (31.6-35.5); Mean Corpuscular Hemoglobin 25.1 pg (28.0-33.3); Mean Corpuscular Volume 77.3 fL (83.0-100.0); Mean Platelet Volume 10.6 fL (9.4-12.4); Monocytes # 0.6 K/mcL (0.0-1.3); Neutrophils # 4.3 K/mcL (1.6-8.9); Platelet Count 197 K/mcL (140-400); Red Blood Count 4.54 M/mcL (4.19-5.50); Red Cell Distribution Width 14.8 % (11.5-14.5); Segmented Neutrophils % 59.3 %; White Blood Count 7.3 K/mcL (4.3-11.1)
[2022-06-29 04:17] LABS: Calcium 8.1 mg/dL (8.6-10.3); Potassium 3.5 mEq/L (3.5-5.1)
[2022-06-29] MEDS: *HR* Heparin 5,000 UNIT/ML VIAL SQ SCH (04:58)
[2022-06-29] MEDS: Fenofibrate 54 MG TABLET PO SCH (09:07)
[2022-06-29] MEDS: Zinc Sulfate 220 MG CAPSULE PO SCH (09:07)
[2022-06-29] MEDS: Folic Acid 1 MG TABLET PO SCH (09:07)
[2022-06-29] MEDS: hydrOXYzine pamoate 25 MG CAPSULE PO SCH (09:07)
[2022-06-29] MEDS ORDERED: Insulin DETEMIR 100 UNIT/ML X5UNITS SUBQ ONE (09:42)
== END 2022-06-29 10:25 | disposition home or self-care (01) | DRG 439 ==
LOC: EMEROOARM 15:10 → 2ANU 15:10 → 2NENU 23:37
PROVIDERS: ADMIT Internal Medicine; ATTEND Internal Medicine